=== PATIENT | male | born 1975 | race Hispanic/Latino ===

== ENCOUNTER 2019-03-01 04:36 | Inpatient (IN) | payer OTHER, SELFPAY ==
[2019-03-01 05:12] LABS: Absolute Lymphocytes (CBC) 1.9 K/uL (0.7-4.9); Basophils % 0.8 % (0-1.3); Hematocrit 41.5 % (39.6-49.0); Lymphocytes % 31.2 % (15.3-44.8); RBC Red Blood Cell Count 5.02 M/uL (4.33-5.43)
[2019-03-01 05:13] LABS: Protime INR 0.91
[2019-03-01] MEDS ORDERED: LABETALOL 20 MG/4ML SYRINGE IV ONE (05:41)
[2019-03-01 05:44] LABS: ALT/SGPT 36 U/L (12-78); AST/SGOT 32 U/L (15-37); Albumin 4.1 g/dL (3.4-5.0); Alkaline Phosphatase 199 U/L (45-117); BUN Blood Urea Nitrogen 19 mg/dL (7-18); Bicarbonate 27 mmol/L (21-32); Bilirubin Total 0.6 mg/dL (0.2-1.0); Glucose Level 164 mg/dL (74-106); Potassium 3.7 mmol/L (3.5-5.1); Protein, Total 8.3 g/dL (6.4-8.2); Sodium Level 142 mmol/L (136-145); Troponin (Emerg Dept Use Only) < 0.02 ng/mL (0.0-0.045)
[2019-03-01] MEDS ORDERED: cloNIDine HCL 0.1 MG TAB ONE (06:28)
[2019-03-01] MEDS ORDERED: Nicardipine/NS 25 MG/250 ML KIT IV ONE (06:49)
[2019-03-01] MEDS ORDERED: Nicardipine in Saline, Iso-Osm 20 MG/200 ML IV.SOLN. IV PRN (07:36)
--- NOTE | 2019-03-01 07:36 | ER ---
Nurse's Notes [facility] Name: Joselyn Lerner Jr Age: 44 yrs Sex: Male : 1975 Arrival Date: 03/01/2019 Time: 04:36 Bed 8 Private MD: Diagnosis: CVA;Hypertensive Emergency Presentation: 03/01 04:40 Presenting complaint: Patient states: he went to be about 2300 last night and woke up aa1 this morning at 0404 and when he stood up to use the restroom he noticed that he felt weak in his L arm and leg. C/O decreased sensation to L arm \T\ leg and slight droop to L side of mouth. Transition of care: patient was not received from another setting of care. An acute neurological deficit is present. The patient has been moved to a treatment area. Pre-hospital glucose is not applicable to this patient. Onset of symptoms is unknown. Risk Assessment: Do you want to hurt yourself or someone else? Patient reports no desire to harm self or others. Initial Sepsis Screen: Does the patient meet any 2 criteria? No. Patient's initial sepsis screen is negative. Does the patient have a suspected source of infection? No. Patient's initial sepsis screen is negative. Care prior to arrival: None. 04:40 Method Of Arrival: Ambulatory aa1 04:40 Acuity: DANIELLE 2 aa1 Triage Assessment: 04:40 The onset of the patients symptoms was more than three but less than six hours ago. aa1 07:24 Neuro: Reports. tw2 09:54 The onset of the patients symptoms was March 01, 2019 at 04:40. tw2 Stroke Activation: Symtpom onset >3 hours and < 6 hours Physician: Stroke Attending; Name: n/a; Notified At: ; Arrived At: Physician: Chief Stroke Resident; Name: n/a; Notified At: ; Arrived At: Physician: Stroke Resident; Name: n/a; Notified At: ; Arrived At: Physician: ED Attending; Name: ; Notified At: 04:38; Arrived At: 04:38 Physician: ED Resident; Name: n/a; Notified At: ; Arrived At: Historical: - Allergies: 04:53 Tylenol; aa1 07:24 Hydrocodone-Acetaminophen; tw2 - Home Meds: 04:53 clonidine HCl 0.1 mg Oral tab 1 tab once daily [Active]; losartan oral oral [Active]; aa1 07:24 lisinopril 40 mg Oral tab 1 tab once daily [Active]; tw2 - PMHx: 04:53 Gout; Hypertension; aa1 - PSHx: 04:53 Appendectomy; Cholecystectomy; aa1 - Immunization history:: Flu vaccine is not up to date. - Social history:: Smoking status: Patient uses tobacco products, denies chronic smoking, but will smoke occasionally, Patient/guardian denies using alcohol, street drugs, IV drugs. - Ebola Screening: : No symptoms or risks identified at this time. Screenin:40 Abuse screen: Denies threats or abuse. Denies injuries from another. Nutritional aa1 screening: No deficits noted. Tuberculosis screening: No symptoms or risk factors identified. Fall Risk None identified. 05:35 Patient has been NPO before screening. The patient is alert, able to follow commands. aa1 The patient does not exhibit slurred or garbled speech The patient is not exhibiting difficulty speaking. The patient does not exhibit difficulty understanding words. The patient is able to swallow own secretions with no drooling or need for suction. Patient tolerated one teaspoon of water. No drooling, immediate coughing, gurgling, or clearing of the throat was noted. The patient tolerated 90mL of water. No drooling, immediate coughing, gurgling, or clearing of the throat was noted. The patient passed the bedside swallow screening. Oral medications may be given as ordered. Contact Physician for further diet orders. Assessment: 04:40 VAN Scoring: Arm Drift: Minor drift Visual Disturbance: No visual disturbance noted. aa1 Aphasia: No aphasia noted. Neglect: No neglect noted. T-PA (Activase) Screening: Indications: Definite evidence of stroke, ischemic, embolic, or hypertensive: Yes. Treatment will start within 4.5 hours onset of symptoms: No. 04:40 General: Appears in no apparent distress. comfortable, Behavior is calm, cooperative, aa1 appropriate for age. Pain: Denies pain. Neuro: Level of Consciousness is awake, alert, obeys commands, Oriented to person, place, time, situation, Printer Helper are weak on left Moves all extremities. Weakness in left arm(s) leg(s) Speech is normal, Facial droop on left, Pupils are PERRLA, decreases in LUE \T\ LLE. Denies blurred vision dizziness, difficulty swallowing. Cardiovascular: Heart tones S1 S2 present Rhythm is regular. Respiratory: Airway is patent Respiratory effort is even, unlabored, Respiratory pattern is regular, symmetrical. GI: No signs and/or symptoms were reported involving the gastrointestinal system. : No signs and/or symptoms were reported regarding the genitourinary system. EENT: No signs and/or symptoms were reported regarding the EENT system. Derm: Skin is intact, is healthy with good turgor, Skin is pink, warm \T\ dry. Musculoskeletal: Circulation, motion, and sensation intact. Capillary refill < 3 seconds. 05:40 Reassessment: Patient appears in no apparent distress at this time. No changes from aa1 previously documented assessment. Patient and/or family updated on plan of care and expected duration. Pain level reassessed. Awaiting test results Patient denies pain at this time. 06:15 Reassessment: Patient appears in no apparent distress at this time. No changes from aa1 previously documented assessment. Patient and/or family updated on plan of care and expected duration. Pain level reassessed. Patient is alert, oriented x 3, equal unlabored respirations, skin warm/dry/pink. BP remains elevated, ERP aware. Will give PO Clonidine. 07:13 Reassessment: per Dr. Rascon titrate Cardene to maintain MAP at 135. tw2 07:22 Patient has been NPO before screening. The patient is alert, and able to follow tw2 commands. The patient does not exhibit slurred or garbled speech. The patient is not exhibiting difficulty speaking. The patient does not exhibit difficulty understanding words. The patient is able to swallow own secretions with no drooling or need for suction. Patient tolerated one teaspoon of water. No drooling, immediate coughing, gurgling, or clearing of the throat was noted. The patient tolerated 90mL of water. No drooling, immediate coughing, gurgling, or clearing of the throat was noted. The patient passed the bedside swallow screening. Oral medications may be given as ordered. Contact Physician for further diet orders. Provider notified of bedside swallow screening results: Mando Evans MD. 07:25 Reassessment: Patient appears in no apparent distress at this time. No changes from tw2 previously documented assessment. Patient and/or family updated on plan of care and expected duration. Pain level reassessed. Patient is alert, oriented x 3, equal unlabored respirations, skin warm/dry/pink. pt able to sit at bedside and use urinal at this time, nad. 07:48 Reassessment: Patient appears in no apparent distress at this time. Dr Rascon at bedside, ph pt's MAP noted to be 115, Cardene drip rate decreased, (see MAR), verbal order received for 250 mL NS bolus to maintain MAP of 135. 08:25 Reassessment: per Dr. Rascon stop Cardene at this time, if needed and MAP >150 start tw2 Cardene at 0.5mg/hr and titrate to MAP about [address] Rascon, Dr. Solorzano taking over for Dr. Rascon after this. 08:25 Reassessment: Patient appears in no apparent distress at this time. No changes from tw2 previously documented assessment. Patient and/or family updated on plan of care and expected duration. Pain level reassessed. Patient is alert, oriented x 3, equal unlabored respirations, skin warm/dry/pink. 09:20 Reassessment: Patient appears in no apparent distress at this time. No changes from tw2 previously documented assessment. Patient and/or family updated on plan of care and expected duration. Pain level reassessed. Patient is alert, oriented x 3, equal unlabored respirations, skin warm/dry/pink. Vital Signs: 04:55 BP 222 / 133; Pulse 84; Resp 16; Temp 97.5; Pulse Ox 100% on R/A; Weight 107.95 kg; aa1 Height 5 ft. 8 in. (172.72 cm); Pain 0/10; 05:30 BP 203 / 125; Pulse 68; Resp 18; Pulse Ox 99% on R/A; Pain 0/10; aa1 06:21 BP 229 / 130; Pulse 68; Resp 17; Pulse Ox 98% on R/A; oe 06:53 BP 220 / 113; Pulse 64; Resp 16; Pulse Ox 100% on R/A; Pain 0/10; aa1 07:06 BP 201 / 119; Pulse 82; Resp 17; Pulse Ox 99% on R/A; tw2 07:10 BP 192 / 115; Pulse 82; Resp 17; Pulse Ox 100% on R/A; tw2 07:15 BP 194 / 126; Pulse 92; Resp 17; Pulse Ox 99% on R/A; tw2 07:20 BP 194 / 126; Pulse 87; Resp 16; Pulse Ox 100% on R/A; tw2 07:25 BP 185 / 105; Pulse 85; Resp 17; Pulse Ox 98% on R/A; tw2 07:30 BP 167 / 104; Pulse 84; Resp 17; Pulse Ox 98% on R/A; tw2 07:35 BP 166 / 107; Pulse 81; Resp 17; Pulse Ox 99% on R/A; tw2 07:40 BP 162 / 99; Pulse 81; Resp 17; Pulse Ox 98% on R/A; tw2 07:45 BP 151 / 103; Pulse 83; Resp 16; Pulse Ox 98% on R/A; tw2 07:50 BP 155 / 92; Pulse 79; Resp 17; Pulse Ox 98% on R/A; tw2 07:55 BP 156 / 94; Pulse 79; Resp 14; Pulse Ox 98% on R/A; tw2 08:00 BP 151 / 93; Pulse 80; Resp 17; Pulse Ox 98% on R/A; tw2 08:05 BP 153 / 98; Pulse 81; Resp 17; Pulse Ox 99% on R/A; tw2 08:10 BP 167 / 101; Pulse 79; Resp 17; Pulse Ox 98% on R/A; tw2 08:15 BP 161 / 94; Pulse 81; Resp 15; Pulse Ox 97% on R/A; tw2 08:20 BP 147 / 92; Pulse 80; Resp 15; Pulse Ox 97% on R/A; tw2 08:25 BP 174 / 106; Pulse 80; Resp 17; Pulse Ox 99% on R/A; tw2 08:35 BP 182 / 116; Pulse 82; Resp 17; Pulse Ox 98% on R/A; tw2 08:40 BP 181 / 123; Pulse 79; Resp 17; Pulse Ox 99% on R/A; tw2 08:45 BP 169 / 106; Pulse 79; Resp 17; Pulse Ox 100% on R/A; tw2 08:50 BP 168 / 109; Pulse 75; Resp 17; Pulse Ox 99% on R/A; tw2 08:55 BP 171 / 109; Pulse 74; Resp 15; Pulse Ox 98% on R/A; tw2 09:00 BP 159 / 103; Pulse 76; Resp 13; Pulse Ox 98% on R/A; tw2 09:15 BP 159 / 104; Pulse 71; Resp 17; Pulse Ox 99% on R/A; tw2 09:30 BP 167 / 107; Pulse 70; Resp 17; Pulse Ox 100% ; tw2 09:45 BP 165 / 103; Pulse 72; Resp 17; Pulse Ox 99% on R/A; tw2 04:55 Body Mass Index 36.19 (107.95 kg, 172.72 cm) aa1 08:35 map 133 tw2 08:40 map 138 tw2 08:45 map 122 tw2 08:50 [id number] tw2 08:55 map 126 tw2 09:00 [id number] tw2 09:15 map 120 tw2 09:45 map 121 tw2 NIH Stroke Scale Scores: 04:40 NIHSS Score: 4 aa1 04:53 NIHSS Score: 4 ps1 ED Course: 04:36 Patient arrived in ED. ds1 04:39 Arm band placed on left wrist. Patient placed in an exam room, on a stretcher. aa1 04:40 Patient has correct armband on for positive identification. Placed in gown. Bed in low aa1 position. Call light in reach. senior civil engineer on. Pulse ox on. NIBP on. Warm blanket given. 04:41 Initial lab(s) drawn, by ED staff, sent to lab. Inserted saline lock: 18 gauge in right aa1 antecubital area, using aseptic technique. ,using aseptic technique. by Lupis Dewitt RN Blood collected. 04:45 Mando Evans MD is Attending Physician. ps1 04:45 Iqra Ibarra RN is Primary Nurse. aa1 04:51 Triage completed. aa1 05:27 CT Stroke Brain w/o Contrast In Process Unspecified. EDMS 05:27 Stroke CXR 1 View In Process Unspecified. EDMS 05:29 Head angio In Process Unspecified. EDMS 05:29 Neck Angio In Process Unspecified. EDMS 07:00 Report given to Aleyda Richey RN \T\ Arleen Mejia RN. aa1 07:08 Ebenezer Phillips MD is Hospitalizing Provider. ps1 07:19 Richey, Aleyda, RN is Primary Nurse. tw2 07:39 No provider procedures requiring assistance completed. tw2 09:54 Patient admitted, IV remains in place. tw2 Administered Medications: 05:40 Drug: Labetalol 10 mg Route: IVP; Site: right antecubital; aa1 06:10 Follow up: Response: No adverse reaction; Blood pressure is unchanged aa1 06:15 Drug: Labetalol 10 mg Route: IVP; Site: right forearm; wh 06:30 Follow up: Response: No adverse reaction; Blood pressure is unchanged aa1 06:27 Drug: cloNIDine 0.1 mg Route: PO; aa1 07:38 Follow up: Response: No adverse reaction tw2 06:52 Drug: niCARdipine (25mg/250mL) 5 mg/h Route: IV; Rate: calculated rate; Site: right aa1 antecubital; 07:13 Follow up: Rate change 10 ml/hr tw2 07:38 Follow up: Rate change 7 ml/hr tw2 07:53 Follow up: Rate change 2 mg/hr tw2 08:10 Follow up: Rate change 1 mg/hr tw2 08:25 Follow up: IV Status: Order to discontinue infusion; Order to discontinue infusion, per tw2 Dr. Rascon if MAP > 150 start Cardene at 0.5 mg/hr and titrate MAP around 140 after that 06:58 Drug: Aspirin 325 mg Route: PO; aa1 07:38 Follow up: Response: No adverse reaction tw2 07:53 Drug: NS 0.9% 250 ml Route: IV; Rate: bolus; Site: right antecubital; tw2 08:09 Follow up: Rate change 70 ml/hr; IV Intake: 250ml ; per Dr. Rascon tw2 09:54 Follow up: Rate change 75 ml/hr; IV Status: Infusion continued upon admission tw2 Point of Care Testing: Blood Glucose: 04:45 Blood Glucose: 174 mg/dL; aa1 Ranges: Intake: 08:09 IV: 250ml; Total: 250ml. tw2 Output: 07:39 Urine: 400ml (Voided); Total: 400ml. tw2 Outcome: 07:08 Decision to Hospitalize by Provider. ps1 09:54 Admitted to ER Hold. Please see [facility] for further documentation. tw2 09:54 Condition: stable 09:54 Instructed on the need for admit. 16:41 Admitted to ICU accompanied by nurse, accompanied by tech, via stretcher, room 6, on tw2 monitor, with chart, Report called to CRISTELA Falcon 16:41 Patient left the ED. tw2 NIH Stroke Scale - NIH Stroke Score Date: 03/01/2019 Time: 04:40 Total Score = 4 1a. Level of Consciousness (LOC) - 0(Alert) 1b. Level of Consciousness (LOC) (Year \T\ Age) - 0(Both) 1c. LOC Commands (Open \T\ Closes Eyes/Coordinator Volunteer Services) - 0(Both) 2. Best Gaze (Lateral Gaze Paresis) - 0(Normal) 3. Visual Field Loss - 0(No visual loss) 4. Facial Palsy - 1(Minor Paralysis) 5a. Left Arm: Motor (10-second hold) - 1(Drift) 5b. Right Arm: Motor (10-second hold) - 0(No drift) 6a. Left Leg: Motor (5-second hold - always test supine) - 1(Drift) 6b. Right Leg: Motor (5-second hold - always test supine) - 0(No drift) 7. Limb Ataxia (finger/nose \T\ heel/tomlinson - test with eyes open) - 0(Absent) 8. Sensory Loss (pinprick arms/legs/face) - 1(Mild to moderate loss) 9. Best Language: Aphasia (description/naming/reading) - 0(No aphasia) 10. Dysarthria (speech clarity - read or repeat words) - 0(Normal) 11. Extinction and Inattention (visual/tactile/auditory/spatial/personal) - 0(No abnormality) Initials: aa1 NIH Stroke Scale - NIH Stroke Score Date: 03/01/2019 Time: 04:53 Total Score = 4 1a. Level of Consciousness (LOC) - 0(Alert) 1b. Level of Consciousness (LOC) (Year \T\ Age) - 0(Both) 1c. LOC Commands (Open \T\ Closes Eyes/Coordinator Volunteer Services) - 0(Both) 2. Best Gaze (Lateral Gaze Paresis) - 0(Normal) 3. Visual Field Loss - 0(No visual loss) 4. Facial Palsy - 1(Minor Paralysis) 5a. Left Arm: Motor (10-second hold) - 1(Drift) 5b. Right Arm: Motor (10-second hold) - 0(No drift) 6a. Left Leg: Motor (5-second hold - always test supine) - 1(Drift) 6b. Right Leg: Motor (5-second hold - always test supine) - 0(No drift) 7. Limb Ataxia (finger/nose \T\ heel/tomlinson - test with eyes open) - 0(Absent) 8. Sensory Loss (pinprick arms/legs/face) - 1(Mild to moderate loss) 9. Best Language: Aphasia (description/naming/reading) - 0(No aphasia) 10. Dysarthria (speech clarity - read or repeat words) - 0(Normal) 11. Extinction and Inattention (visual/tactile/auditory/spatial/personal) - 0(No abnormality) Initials: ps1 Signatures: Dispatcher [employer] EDMS Iqra Ibarra RN RN aa1 Bertha Whitfield ds1 Arleen Mejia RN RN Aleyda Richey RN RN tw2 [place] wh Singer, Phillip, MD MD ps1 Corrections: (The following items were deleted from the chart) 08:52 08:30 BP 182 / 116; Pulse 82bpm; Resp 17bpm; Pulse Ox 98% RA; tw2 tw2 08:52 08:35 BP 169 / 106; Pulse 79bpm; Resp 17bpm; Pulse Ox 100% RA; tw2 tw2 08:52 08:35 BP 181 / 123; Pulse 79bpm; Resp 17bpm; Pulse Ox 99% RA; tw2 tw2 08:59 08:40 BP 181 / 123; Pulse 79bpm; Resp 17bpm; Pulse Ox 99% RA; tw2 tw2 08:59 08:35 BP 182 / 116; Pulse 82bpm; Resp 17bpm; Pulse Ox 98% RA; tw2 tw2 08:59 08:45 BP 169 / 106; Pulse 79bpm; Resp 17bpm; Pulse Ox 100% RA; tw2 tw2 08:59 08:50 BP 168 / 109; Pulse 75bpm; Resp 17bpm; Pulse Ox 99% RA; tw2 tw2
--- NOTE | 2019-03-01 07:37 | EDPHYS ---
Physician Documentation [facility] Name: Joselyn Lerner Jr Age: 44 yrs Sex: Male : 1975 Arrival Date: 03/01/2019 Time: 04:36 Bed 8 Private MD: ED Physician Mando Evans HPI: 03/01 04:53 This 44 yrs old Male presents to ER via Ambulatory with complaints of S/S of ps1 Possible Stroke, Numbness Of Arm - L, Slurred Speech. 04:53 No hx of CVA in past presenting with slurred speech, left UE/LE and left facial ps1 weakness and decreased sensation. Went to bed at 11 pm normal and woke up at 4am with symptoms. No blood thinners. Hx of HTN. . Historical: - Allergies: 04:53 Tylenol; aa1 07:24 Hydrocodone-Acetaminophen; tw2 - Home Meds: 04:53 clonidine HCl 0.1 mg Oral tab 1 tab once daily [Active]; losartan oral oral [Active]; aa1 07:24 lisinopril 40 mg Oral tab 1 tab once daily [Active]; tw2 - PMHx: 04:53 Gout; Hypertension; aa1 - PSHx: 04:53 Appendectomy; Cholecystectomy; aa1 - Immunization history:: Flu vaccine is not up to date. - Social history:: Smoking status: Patient uses tobacco products, denies chronic smoking, but will smoke occasionally, Patient/guardian denies using alcohol, street drugs, IV drugs. - Ebola Screening: : No symptoms or risks identified at this time. ROS: 04:53 Constitutional: Negative for fever, chills, and weight loss, Eyes: Negative for injury, ps1 pain, redness, and discharge, Cardiovascular: Negative for chest pain, palpitations, and edema, Respiratory: Negative for shortness of breath, cough, wheezing, and pleuritic chest pain, Abdomen/GI: Negative for abdominal pain, nausea, vomiting, diarrhea, and constipation, MS/Extremity: Negative for injury and deformity, Skin: Negative for injury, rash, and discoloration. 04:53 Neuro: Positive for weakness, of the left cheek, left arm and left leg. Exam: 04:53 Constitutional: This is a well developed, well nourished patient who is awake, alert, ps1 and in no acute distress. Head/Face: Normocephalic, atraumatic. Eyes: Pupils equal round and reactive to light, extra-ocular motions intact. Lids and lashes normal. Conjunctiva and sclera are non-icteric and not injected. ENT: Nares patent. No nasal discharge, no septal abnormalities noted. Tympanic membranes are normal and external auditory canals are clear. Oropharynx with no redness, swelling, or masses, exudates, or evidence of obstruction, uvula midline. Mucous membranes moist. Chest/axilla: Normal chest wall appearance and motion. Nontender with no deformity. No lesions are appreciated. Cardiovascular: Regular rate and rhythm. No gallops, murmurs, or rubs. Normal PMI, no JVD. No pulse deficits. Respiratory: Lungs have equal breath sounds bilaterally, clear to auscultation and percussion. No rales, rhonchi or wheezes noted. No increased work of breathing, no retractions or nasal flaring. Abdomen/GI: Soft, non-tender, with normal bowel sounds. No distension or tympany. No guarding or rebound. No evidence of tenderness throughout. Skin: Warm, dry with normal turgor. Normal color with no rashes, no lesions, and no evidence of cellulitis. MS/ Extremity: Pulses equal, no cyanosis. Neurovascular intact. Full, normal range of motion. 04:53 Neuro: Orientation: is normal, Mentation: is normal, Cerebellar function: is grossly normal, Motor: Strength is 3/5 in the left leg and left arm. 07:08 Radiologist reports: negative for flow limiting lesion on CTA, CT ps1 Vital Signs: 04:55 BP 222 / 133; Pulse 84; Resp 16; Temp 97.5; Pulse Ox 100% on R/A; Weight 107.95 kg; aa1 Height 5 ft. 8 in. (172.72 cm); Pain 0/10; 05:30 BP 203 / 125; Pulse 68; Resp 18; Pulse Ox 99% on R/A; Pain 0/10; aa1 06:21 BP 229 / 130; Pulse 68; Resp 17; Pulse Ox 98% on R/A; oe 06:53 BP 220 / 113; Pulse 64; Resp 16; Pulse Ox 100% on R/A; Pain 0/10; aa1 07:06 BP 201 / 119; Pulse 82; Resp 17; Pulse Ox 99% on R/A; tw2 07:10 BP 192 / 115; Pulse 82; Resp 17; Pulse Ox 100% on R/A; tw2 07:15 BP 194 / 126; Pulse 92; Resp 17; Pulse Ox 99% on R/A; tw2 07:20 BP 194 / 126; Pulse 87; Resp 16; Pulse Ox 100% on R/A; tw2 07:25 BP 185 / 105; Pulse 85; Resp 17; Pulse Ox 98% on R/A; tw2 07:30 BP 167 / 104; Pulse 84; Resp 17; Pulse Ox 98% on R/A; tw2 07:35 BP 166 / 107; Pulse 81; Resp 17; Pulse Ox 99% on R/A; tw2 07:40 BP 162 / 99; Pulse 81; Resp 17; Pulse Ox 98% on R/A; tw2 07:45 BP 151 / 103; Pulse 83; Resp 16; Pulse Ox 98% on R/A; tw2 07:50 BP 155 / 92; Pulse 79; Resp 17; Pulse Ox 98% on R/A; tw2 07:55 BP 156 / 94; Pulse 79; Resp 14; Pulse Ox 98% on R/A; tw2 08:00 BP 151 / 93; Pulse 80; Resp 17; Pulse Ox 98% on R/A; tw2 08:05 BP 153 / 98; Pulse 81; Resp 17; Pulse Ox 99% on R/A; tw2 08:10 BP 167 / 101; Pulse 79; Resp 17; Pulse Ox 98% on R/A; tw2 08:15 BP 161 / 94; Pulse 81; Resp 15; Pulse Ox 97% on R/A; tw2 08:20 BP 147 / 92; Pulse 80; Resp 15; Pulse Ox 97% on R/A; tw2 08:25 BP 174 / 106; Pulse 80; Resp 17; Pulse Ox 99% on R/A; tw2 08:35 BP 182 / 116; Pulse 82; Resp 17; Pulse Ox 98% on R/A; tw2 08:40 BP 181 / 123; Pulse 79; Resp 17; Pulse Ox 99% on R/A; tw2 08:45 BP 169 / 106; Pulse 79; Resp 17; Pulse Ox 100% on R/A; tw2 08:50 BP 168 / 109; Pulse 75; Resp 17; Pulse Ox 99% on R/A; tw2 08:55 BP 171 / 109; Pulse 74; Resp 15; Pulse Ox 98% on R/A; tw2 09:00 BP 159 / 103; Pulse 76; Resp 13; Pulse Ox 98% on R/A; tw2 09:15 BP 159 / 104; Pulse 71; Resp 17; Pulse Ox 99% on R/A; tw2 09:30 BP 167 / 107; Pulse 70; Resp 17; Pulse Ox 100% ; tw2 09:45 BP 165 / 103; Pulse 72; Resp 17; Pulse Ox 99% on R/A; tw2 04:55 Body Mass Index 36.19 (107.95 kg, 172.72 cm) aa1 08:35 map 133 tw2 08:40 map 138 tw2 08:45 map 122 tw2 08:50 [id number] tw2 08:55 map 126 tw2 09:00 [id number] tw2 09:15 map 120 tw2 09:45 map 121 tw2 NIH Stroke Scale Scores: 04:40 NIHSS Score: 4 aa1 04:53 NIHSS Score: 4 ps1 MDM: 04:53 Patient medically screened. ps1 05:56 ED course: CT stroke negative. CTA negative for flow limiting lesion in brain. Pending ps1 neck. . 07:08 Data reviewed: vital signs, nurses notes, lab test result(s), radiologic studies, and ps1 as a result, I will discharge patient. Counseling: I had a detailed discussion with the patient and/or guardian regarding: the historical points, exam findings, and any diagnostic results supporting the discharge/admit diagnosis, the presence of at least one elevated blood pressure reading (>120/80) during this emergency department visit, the need for further work-up and treatment in the hospital. 03/01 04:47 Order name: Troponin (emerg Dept Use Only); Complete Time: 05:49 ps1 03/01 04:47 Order name: CBC with Diff; Complete Time: 05:36 ps1 03/01 04:42 Order name: CT Stroke Brain w/o Contrast dm5 03/01 04:47 Order name: Protime (+inr); Complete Time: 05:18 ps1 03/01 04:47 Order name: CMP; Complete Time: 05:49 ps1 03/01 04:58 Order name: Glucose, Ancillary Testing; Complete Time: 05:05 EDMS 01/05 04:47 Order name: Stroke CXR 1 View ps1 03/01 05:03 Order name: Head angio EDMS 03/01 05:03 Order name: Neck Angio EDMS 03/01 07:41 Order name: Echo with Doppler EDMS 03/01 07:42 Order name: Stroke Protocol EDMS 03/01 07:44 Order name: Chest Pa And Lat (2 Views) EDMS 03/01 04:47 Order name: EKG; Complete Time: 04:48 ps1 03/01 04:47 Order name: Accucheck; Complete Time: 05:00 ps1 03/01 04:47 Order name: Cardiac monitoring; Complete Time: 05:00 ps1 03/01 04:47 Order name: EKG - Nurse/Tech; Complete Time: 05:00 ps1 03/01 04:47 Order name: IV Saline Lock; Complete Time: 05:00 ps1 03/01 07:40 Order name: CONS Physician Consult EDMS 03/01 07:40 Order name: Physical Therapy Consult EDMS 03/01 07:41 Order name: Speech Therapy Consult EDMS 03/01 07:41 Order name: NPO EDMS 03/01 07:41 Order name: NPO EDMS 03/01 07:41 Order name: NPO EDMS 03/01 07:41 Order name: EKG Electrocardiogram EDMS 03/01 04:47 Order name: Labs collected and sent; Complete Time: 05:00 ps1 03/01 04:47 Order name: NPO; Complete Time: 05:00 ps1 03/01 04:47 Order name: O2 Per Protocol; Complete Time: 05:00 ps1 03/01 04:47 Order name: O2 Sat Monitoring; Complete Time: 05:00 ps1 03/01 04:47 Order name: Stroke Swallow Screen; Complete Time: 05:44 ps1 EC:06 Rate is 77 beats/min. Rhythm is regular. QRS [place] is Normal. CA interval is normal. QRS ps1 interval is normal. QT interval is normal. No Q waves. T waves are Normal. No ST changes noted. Clinical impression: Normal ECG. Reviewed by me. Administered Medications: 05:40 Drug: Labetalol 10 mg Route: IVP; Site: right antecubital; aa1 06:10 Follow up: Response: No adverse reaction; Blood pressure is unchanged aa1 06:15 Drug: Labetalol 10 mg Route: IVP; Site: right forearm; 06:30 Follow up: Response: No adverse reaction; Blood pressure is unchanged aa1 06:27 Drug: cloNIDine 0.1 mg Route: PO; aa1 07:38 Follow up: Response: No adverse reaction tw2 06:52 Drug: niCARdipine (25mg/250mL) 5 mg/h Route: IV; Rate: calculated rate; Site: right aa1 antecubital; 07:13 Follow up: Rate change 10 ml/hr tw2 07:38 Follow up: Rate change 7 ml/hr tw2 07:53 Follow up: Rate change 2 mg/hr tw2 08:10 Follow up: Rate change 1 mg/hr tw2 08:25 Follow up: IV Status: Order to discontinue infusion; Order to discontinue infusion, per tw2 Dr. Rascon if MAP > 150 start Cardene at 0.5 mg/hr and titrate MAP around 140 after that 06:58 Drug: Aspirin 325 mg Route: PO; aa1 07:38 Follow up: Response: No adverse reaction tw2 07:53 Drug: NS 0.9% 250 ml Route: IV; Rate: bolus; Site: right antecubital; tw2 08:09 Follow up: Rate change 70 ml/hr; IV Intake: 250ml ; per Dr. Rascon tw2 09:54 Follow up: Rate change 75 ml/hr; IV Status: Infusion continued upon admission tw2 Point of Care Testing: Blood Glucose: 04:45 Blood Glucose: 174 mg/dL; aa1 Ranges: Critical Glucose Levels:Adult <50 mg/dl or >400 mg/dl <40 mg/dl or >180 mg/dl Disposition: 03/01/19 07:08 Hospitalization ordered by Eebnezer Phillips for Inpatient Admission. Preliminary diagnosis are CVA, Hypertensive Emergency. - Bed requested for Intensive Care Unit. - Status is Inpatient Admission. tw2 - Condition is Serious. - Problem is new. - Symptoms are unchanged. UTI on Admission? No Critical care time excluding procedures: 07:08 Critical care time: Bedside Care: 30 minutes, Consultation: 10 minutes. Total time: 40 ps1 minutes NIH Stroke Scale - NIH Stroke Score Date: 03/01/2019 Time: 04:40 Total Score = 4 1a. Level of Consciousness (LOC) - 0(Alert) 1b. Level of Consciousness (LOC) (Year \T\ Age) - 0(Both) 1c. LOC Commands (Open \T\ Closes Eyes/Ophthalmology Surgical Technician) - 0(Both) 2. Best Gaze (Lateral Gaze Paresis) - 0(Normal) 3. Visual Field Loss - 0(No visual loss) 4. Facial Palsy - 1(Minor Paralysis) 5a. Left Arm: Motor (10-second hold) - 1(Drift) 5b. Right Arm: Motor (10-second hold) - 0(No drift) 6a. Left Leg: Motor (5-second hold - always test supine) - 1(Drift) 6b. Right Leg: Motor (5-second hold - always test supine) - 0(No drift) 7. Limb Ataxia (finger/nose \T\ heel/tomlinson - test with eyes open) - 0(Absent) 8. Sensory Loss (pinprick arms/legs/face) - 1(Mild to moderate loss) 9. Best Language: Aphasia (description/naming/reading) - 0(No aphasia) 10. Dysarthria (speech clarity - read or repeat words) - 0(Normal) 11. Extinction and Inattention (visual/tactile/auditory/spatial/personal) - 0(No abnormality) Initials: aa1 NIH Stroke Scale - NIH Stroke Score Date: 03/01/2019 Time: 04:53 Total Score = 4 1a. Level of Consciousness (LOC) - 0(Alert) 1b. Level of Consciousness (LOC) (Year \T\ Age) - 0(Both) 1c. LOC Commands (Open \T\ Closes Eyes/Ophthalmology Surgical Technician) - 0(Both) 2. Best Gaze (Lateral Gaze Paresis) - 0(Normal) 3. Visual Field Loss - 0(No visual loss) 4. Facial Palsy - 1(Minor Paralysis) 5a. Left Arm: Motor (10-second hold) - 1(Drift) 5b. Right Arm: Motor (10-second hold) - 0(No drift) 6a. Left Leg: Motor (5-second hold - always test supine) - 1(Drift) 6b. Right Leg: Motor (5-second hold - always test supine) - 0(No drift) 7. Limb Ataxia (finger/nose \T\ heel/tomlinson - test with eyes open) - 0(Absent) 8. Sensory Loss (pinprick arms/legs/face) - 1(Mild to moderate loss) 9. Best Language: Aphasia (description/naming/reading) - 0(No aphasia) 10. Dysarthria (speech clarity - read or repeat words) - 0(Normal) 11. Extinction and Inattention (visual/tactile/auditory/spatial/personal) - 0(No abnormality) Initials: ps1 Signatures: Dispatcher [employer] EDTiffani Toussaint RN RN dw Iqra Ibarra RN RN aa1 Rosanne Hayes ms Aleyda Richey RN RN tw2 Cee Black Phillip, MD MD ps1 Corrections: (The following items were deleted from the chart) 08:10 07:08 Hospitalization Ordered by Ebenezer Phillips MD for Inpatient Admission. ms Preliminary diagnosis is CVA; Hypertensive Emergency. Bed requested for Intensive Care Unit. Status is Inpatient Admission. Condition is Serious. Problem is new. Symptoms are unchanged. UTI on Admission? No. ps1 08:17 08:10 03/01/2019 07:08 Hospitalization Ordered by Ebenezer Phillips MD for ms Inpatient Admission. Preliminary diagnosis is CVA; Hypertensive Emergency. Bed requested for [facility] ER HOLD. Status is Inpatient Admission. Condition is Serious. Problem is new. Symptoms are unchanged. UTI on Admission? No. ms 15:36 08:17 03/01/2019 07:08 Hospitalization Ordered by Ebenezer Phillips MD for dw Inpatient Admission. Preliminary diagnosis is CVA; Hypertensive Emergency. Bed requested for [facility] ER HOLD. Status is Inpatient Admission. Condition is Serious. Problem is new. Symptoms are unchanged. UTI on Admission? No. ms 16:41 15:36 03/01/2019 07:08 Hospitalization Ordered by Ebenezer Phillips MD for tw2 Inpatient Admission. Preliminary diagnosis is CVA; Hypertensive Emergency. Bed requested for Intensive Care Unit. Status is Inpatient Admission. Condition is Serious. Problem is new. Symptoms are unchanged. UTI on Admission? No. dw
[2019-03-01] MEDS: NA CHLORIDE 0.9% 1,000 ML IV SCH ×2 (08:00→21:20)
[2019-03-01] MEDS: ENOXAPARIN 40 MG/0.4 ML SQ SCH (09:00)
[2019-03-01] MEDS: ASPIRIN EC 81 MG TAB PO SCH (09:00)
[2019-03-01] MEDS: CLOPIDOGREL 75 MG TABLET PO SCH (09:00)
[2019-03-01] MEDS ORDERED: CLOPIDOGREL 75 MG TABLET ONE (10:59)
[2019-03-01] MEDS ORDERED: ENOXAPARIN 40 MG/0.4 ML SQ ONE (11:00)
[2019-03-01] MEDS ORDERED: ASPIRIN EC 81 MG TAB PO ONE (11:00)
--- NOTE | 2019-03-01 12:00 | RAD REPORT ---
EXAM DESCRIPTION: RAD - Chest Single View - 03/01/2019 5:24 am CLINICAL HISTORY: stroke Chest pain. COMPARISON: Chest Single View dated 04/30/2017; CHEST SINGLE VIEW dated 11/10/2014 FINDINGS: Portable technique limits examination quality. The lungs are grossly clear. The heart is normal in size. No displaced fractures. IMPRESSION: No acute intrathoracic process suspected.
--- NOTE | 2019-03-01 12:47 | EKG ---
Test Date: 2019-03-01 Test Time: 04:47:23 Search Strategist: KARIN MEASUREMENT RESULTS: Intervals: Rate: 77 VA: 148 QRSD: 86 QT: 388 QTc: 439 [place]: P: 23 VA: 148 QRS: 23 T: 21 INTERPRETIVE STATEMENTS: Normal sinus rhythm Normal ECG Compared to ECG 04/30/2017 02:40:57 Sinus bradycardia no longer present Electronically Signed On 03-01-19 12:46:09 WINK CUTTER OPERATOR by Harpal George
[2019-03-01] MEDS ORDERED: HYDRALAZINE HCL 20 MG/ML VIAL ONE (15:11)
[2019-03-01] MEDS ORDERED: NA CHLORIDE 0.9% 1,000 ML ONE (15:12)
[2019-03-01] MEDS: HYDRALAZINE HCL 20 MG/ML VIAL IV PRN (15:17)
[2019-03-01] MEDS ORDERED: HYDRALAZINE HCL 20 MG/ML VIAL IV ONE (16:52)
[2019-03-01] MEDS ORDERED: ONDANSETRON 4 MG/2 ML VIAL ONE (17:28)
[2019-03-01] MEDS: HYDRALAZINE HCL 20 MG/ML VIAL IV SCH ×2 (18:00→23:43)
[2019-03-01] MEDS: ATORVASTATIN 20 MG TAB PO SCH (20:30)
[2019-03-02] MEDS ORDERED: MEPERIDINE HCL 25 MG/0.5 ML IV ONE (02:31)
--- NOTE | 2019-03-02 02:32 | P.HP ---
Certification for Inpatient Patient admitted to: Inpatient With expected LOS: >2 Midnights Patient will require the following post-hospital care: Rehabilitation Practitioner: I am a practitioner with admitting privileges, knowledge of patient current condition, hospital course, and medical plan of care. Services: Services provided to patient in accordance with Admission requirements found in Title 42 Section 412.3 of the Code of Federal Regulations Patient History Date of Service: 03/02/19 Reason for admission: Acute CVA/hypertensive emergency History of Present Illness: Patient is a 44-year-old gentleman who came into the hospital with left-sided weakness and aphasia. Patient went to sleep around 10:00 p.m.. He woke up around 4:00 a.m. unable to move his left side effectively. He was also aphasic. He woke up his sister who lives in the house with him and she called EMS. He was weak on the left side-lower and upper extremities. Patient also with a significant elevated blood pressure. He has not been taking his home blood pressure medication. He has been in the hospital since 13/02 and tends to have very high blood pressures with diastolic greater than 100's, routinely. Patient will be admitted to the intensive care unit for strict blood pressure control. Will start him on a Cardene drip. Patient will need neurology consultation and an MRI stroke protocol. Patient will need continued anti- platelet and statin therapy and we will check the lipid profile. Therapy evaluation as well. Allergies acetaminophen Allergy (Verified 04/30/17 05:17) Hives hydrocodone [Hydrocodone] Allergy (Verified 04/30/17 05:17) Hives Hydrocodone-Acetaminophen Allergy (Uncoded 04/30/17 05:17) Unknown Home Medications: Clonidine HCl [Catapres] 0.1 mg PO BEDTIME 03/01/19 Losartan Potassium 50 mg PO DAILY 03/01/19 - Past Medical/Surgical History Has patient received pneumonia vaccine in the past: No Diabetic: No -: Uncontrolled HTN -: Gout -: Appendectomy -: Cholecystectomy - Family History Father Medical History: Hypertension, Diabetes Mother Medical History: Heart disease, Diabetes Notes: pts mother is , pts father reports cod "complications from diabetes" Sister Medical History: Diabetes - Social History Smoking Status: Light Tobacco smoker (1-9 cigarettes/day) Alcohol use: No CD- Drugs: No Caffeine use: Yes Place of Residence: Home Review of Systems 10-point ROS is otherwise unremarkable Physical Examination - Vital Signs Temperature: 99.2 F Blood Pressure: 165/101 Pulse: 84 Respirations: 14 Pulse Ox (%): 100 - Physical Exam General: Alert, In no apparent distress, Oriented x3 HEENT: Atraumatic, PERRLA, Mucous membr. moist/pink, EOMI, Sclerae nonicteric Neck: Supple, 2+ carotid pulse no bruit, No LAD, Without JVD or thyroid abnormality Respiratory: Clear to auscultation bilaterally, Normal air movement Cardiovascular: Regular rate/rhythm, Normal S1 S2, No murmurs Gastrointestinal: Normal bowel sounds, Soft and benign, Non-distended, No tenderness Musculoskeletal: No clubbing, No swelling, No tenderness Integumentary: No rashes, No breakdown Neurological: Normal speech, Normal tone, Sensation intact, Cranial nerves 3-12 intact (Left-sided facial weakness), Normal affect, Abnormal gait (Ataxic), Abnormal strength (Left-sided weakness) Lymphatics: No axilla or inguinal lymphadenopathy - Studies Laboratory Data (last 24 hrs) 03/01/19 04:46: PT 10.8, INR 0.91 03/01/19 04:46: WBC 6.1, Hgb 14.3, Hct 41.5, Plt Count 234 03/01/19 04:46: Sodium 142, Potassium 3.7, BUN 19 H, Creatinine 1.79 H, Glucose 164 H, Total Bilirubin 0.6, AST 32, ALT 36, Alkaline Phosphatase 199 H Assessment & Plan - Problems (Diagnosis) (1) Hypertensive emergency Current Visit: Yes Status: Acute (2) Acute CVA (cerebrovascular accident) Current Visit: Yes Status: Acute (3) Acute renal insufficiency Onset Date: 04/30/17 Current Visit: No Status: Acute (4) Obesity Onset Date: 04/30/17 Current Visit: No Status: Chronic Qualifiers: Obesity type: due to excess calories Obesity classification: adult class 2 (BMI 35 - 39.9) Serious obesity comorbidity presence: with serious comorbidity Body mass index: BMI 36.0-36.9 Qualified Code(s): E66.01 - Morbid (severe) obesity due to excess calories; Z68.36 - Body mass index (BMI) 36.0-36.9, adult; Z68.36 - Body mass index (BMI) 36.0-36.9, adult - Plan Plan: 1. Anti-platelet therapy 2. Statin therapy 3. Strict blood pressure control 4. Anti coagulation 5. PT/OT/speech therapy 6. Rehab evaluation 7. Cardene drip and gentle lowering of blood pressure 8. GI/DVT prophylaxis Discharge Plan: Home Plan to discharge in: 72 Hours - Advance Directives Does patient have a Living Will: No Does patient have a Durable POA for Healthcare: No - Code Status/Comfort Care Code Status Assessed: Yes Code Status: Full Code Critical Care: Yes Time Spent Managing PTS Care (In Minutes): 55
[2019-03-02] MEDS: ONDANSETRON 4 MG/2 ML VIAL IV PRN ×2 (02:44→07:37)
[2019-03-02] MEDS: NA CHLORIDE 0.9% 1,000 ML IV SCH ×2 (03:44→19:52)
[2019-03-02 05:11] LABS: Absolute Lymphocytes (CBC) 1.2 K/uL (0.7-4.9); Basophils % 0.4 % (0-1.3); Hematocrit 38.7 % (39.6-49.0); Lymphocytes % 12.7 % (15.3-44.8); MPV 8.7 fL (7.6-11.3)
[2019-03-02 05:15] LABS: Protime INR 1.02
[2019-03-02 05:26] LABS: Albumin 3.7 g/dL (3.4-5.0); Magnesium 2.1 mg/dL (1.8-2.4); Phosphorus 2.6 mg/dL (2.5-4.9); Potassium 3.9 mmol/L (3.5-5.1); Protein, Total 7.6 g/dL (6.4-8.2)
[2019-03-02] MEDS: HYDRALAZINE HCL 20 MG/ML VIAL IV SCH ×3 (05:50→17:27)
[2019-03-02] MEDS: HYDRALAZINE HCL 20 MG/ML VIAL IV PRN ×2 (07:37→14:08)
[2019-03-02] MEDS: CLOPIDOGREL 75 MG TABLET PO SCH (08:03)
[2019-03-02] MEDS: ENOXAPARIN 40 MG/0.4 ML SQ SCH (08:03)
[2019-03-02] MEDS: ASPIRIN EC 81 MG TAB PO SCH (08:03)
--- NOTE | 2019-03-02 10:27 | RAD REPORT ---
EXAM DESCRIPTION: CT Angiography Neck With Intravenous Contrast CLINICAL HISTORY: The patient is 44 years old and is Male; SLURRED SPEECH TECHNIQUE: Axial computed tomographic angiography images of the neck with intravenous contrast. Sa gittal and coronal reformatted images were created and reviewed. This CT exam was performed using o ne or more of the following dose reduction techniques: automated exposure control, adjustment of th e mA and/or kV according to patient size, and/or use of iterative reconstruction technique. MIP reconstructed images were created and reviewed. COMPARISON: No relevant prior studies available. FINDINGS: VASCULATURE: RIGHT COMMON CAROTID ARTERY: Unremarkable. No significant stenosis. No dissection or occlusi on. RIGHT INTERNAL CAROTID ARTERY: Unremarkable. Extracranial segment is patent with no significan t stenosis. No dissection or occlusion. RIGHT EXTERNAL CAROTID ARTERY: Unremarkable. No occlusion. RIGHT VERTEBRAL ARTERY: Unremarkable. No significant stenosis. No dissection or occlusion. LEFT COMMON CAROTID ARTERY: Unremarkable. No significant stenosis. No dissection or occlusio n. LEFT INTERNAL CAROTID ARTERY: Unremarkable. Extracranial segment is patent with no significant stenosis. No dissection or occlusion. LEFT EXTERNAL CAROTID ARTERY: Unremarkable. No occlusion. LEFT VERTEBRAL ARTERY: Unremarkable. No significant stenosis. No dissection or occlusion. NECK: BONES/JOINTS: No acute fracture. No dislocation. SOFT TISSUES: Unremarkable as visualized. No mass. CAROTID STENOSIS REFERENCE USING NASCET CRITERIA: % ICA stenosis = (1 - narrowest ICA diameter/diameter of distal cervical ICA) x 100. Mild - Moderate - 50-69% stenosis. Severe - 70-94% stenosis. Near occlusion - 95-99% stenosis. Occluded - 100% stenosis. IMPRESSION: Normal neck CTA. Electronically signed by: Estee Wood MD 03/01/2019 6:03 AM FRAMING MACHINE TENDER Due to temporary technical issues with the PACS/Fluency reporting system, reports are being signed by the in house radiologist as a courtesy to ensure prompt reporting. The interpreting radiologist is f ully responsible for the content of the report.
--- NOTE | 2019-03-02 10:28 | RAD REPORT ---
EXAM DESCRIPTION: Head angio ADDENDUM #1 THIS REPORT CONTAINS FINDINGS THAT MAY BE CRITICAL TO PATIENT CARE: The findings were verbally discussed via telephone conference with Dr. Mando Evans by Dr. Sandy Wood on 6:[address] [facility] .The results were acknowledged and understood. Electronically signed by: Estee Wood MD 03/01/2019 6:00 AM HEALTHCARE ECONOMICS CONSULTANT End of Addendum EXAM DESCRIPTION: CT Angiography Head With Intravenous Contrast CLINICAL HISTORY: The patient is 44 years old and is Male; SLURRED SPEECH TECHNIQUE: Axial computed tomographic angiography images of the head with intravenous contrast. Sa gittal and coronal reformatted images were created and reviewed. This CT exam was performed using o ne or more of the following dose reduction techniques: automated exposure control, adjustment of th e mA and/or kV according to patient size, and/or use of iterative reconstruction technique. MIP reconstructed images were created and reviewed. COMPARISON: No relevant prior studies available. FINDINGS: RIGHT INTERNAL CAROTID ARTERY: No acute findings. Intracranial segment is patent with no significant stenosis. No aneurysm. RIGHT ANTERIOR CEREBRAL ARTERY: Unremarkable. No occlusion or significant stenosis. No aneur ysm. RIGHT MIDDLE CEREBRAL ARTERY: Unremarkable. No occlusion or significant stenosis. No aneurys m. 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 No significant stenosis or occlusion. No aneurysm. RIGHT VERTEBRAL ARTERY: Unremarkable as visualized. LEFT INTERNAL CAROTID ARTERY: No acute findings. Intracranial segment is patent with no signif icant stenosis. No aneurysm. LEFT ANTERIOR CEREBRAL ARTERY: Unremarkable. No occlusion or significant stenosis. No aneury sm. LEFT MIDDLE CEREBRAL ARTERY: Unremarkable. No occlusion or significant stenosis. No aneurysm . LEFT POSTERIOR CEREBRAL ARTERY: Unremarkable. No occlusion or significant stenosis. No aneur ysm. LEFT VERTEBRAL ARTERY: Unremarkable as visualized. BASILAR ARTERY: Unremarkable. No significant stenosis. No occlusion. No aneurysm. IMPRESSION: Unremarkable CTA of the head. Electronically signed by: Estee Wood MD 03/01/2019 5:56 AM HEALTHCARE ECONOMICS CONSULTANT Due to temporary technical issues with the PACS/Fluency reporting system, reports are being signed by the in house radiologist as a courtesy to ensure prompt reporting. The interpreting radiologist is f ully responsible for the content of the report.
--- NOTE | 2019-03-02 10:28 | ECHO ---
HEIGHT: 5 ft 8 in WEIGHT: 240 lb 3.2 oz DATE OF STUDY: 03/01/[address]: Ebenezer Phillips MD 2-DIMENSIONAL: YES M.MODE: YES DOPPLER: YES COLOR FLOW: YES TDS: NO PORTABLE: YES DEFINITY: NO BUBBLE STUDY: NO DIAGNOSIS: STROKE CARDIAC HISTORY: CATHERIZATION: NO SURGERY: NO PROSTHETIC VALVE: NO PACEMAKER: NO MEASUREMENTS (cm) DIASTOLIC (NORMALS) SYSTOLIC (NORMALS) IVSd 1.0 (0.6-1.2) LA Diam 3.3 (1.9-4.0) LVEF 72% LVIDd 4.5 (3.5-5.7) LVIDs 2.6 (2.0-3.5) %FS 41% LVPWd 1.0 (0.6-1.2) Ao Diam 3.0 (2.0-3.7) 2 DIMENSIONAL ASSESSMENT: RIGHT ATRIUM: NORMAL LEFT ATRIUM: NORMAL RIGHT VENTRICLE: NORMAL LEFT VENTRICLE: NORMAL TRICUSPID VALVE: NORMAL MITRAL VALVE: NORMAL PULMONIC VALVE: NORMAL AORTIC VALVE: NORMAL PERICARDIAL EFFUSION: NONE AORTIC ROOT: NORMAL LEFT VENTRICULAR WALL MOTION: NORMAL. DOPPLER/COLOR FLOW: NORMAL. COMMENTS: NORMAL 2D ECHO WITH DOPPLER. TECHNOLOGIST: BETZY TOSCANO
--- NOTE | 2019-03-02 10:30 | RAD REPORT ---
EXAM DESCRIPTION: Ct Stroke Brain Wo Cont ADDENDUM #1 THIS REPORT CONTAINS FINDINGS THAT MAY BE CRITICAL TO PATIENT CARE: The findings were verbally discussed via telephone conference with Dr. Mando Evans by Dr. Sandy Wood on 6:01 AM [facility] .The results were acknowledged and understood. Incidental note is made of either a mario cisterna magna versus right posterior fossa cyst. Electronically signed by: Estee Wood MD 03/01/2019 6:01 AM SUPERINTENDENT MENAGERIE End of Addendum EXAM DESCRIPTION: CT Head Without Intravenous Contrast CLINICAL HISTORY: The patient is 44 years old and is Male; Slurred speech;Numbness TECHNIQUE: Axial computed tomography images of the head/brain without intravenous contrast. Sagitt al and coronal reformatted images were created and reviewed. This CT exam was performed using one o r more of the following dose reduction techniques: automated exposure control, adjustment of the mA and/or kV according to patient size, and/or use of iterative reconstruction technique. COMPARISON: No relevant prior studies available. FINDINGS: BRAIN: Unremarkable. The ortiz-white matter differentiation is preserved . No hemorrhag e. No significant white matter disease. No edema. No extra-axial fluid collections. VENTRICLES: Unremarkable. No ventriculomegaly. BONES/JOINTS: No acute fracture. SOFT TISSUES: Unremarkable. SINUSES: Unremarkable as visualized. No acute sinusitis. MASTOID AIR CELLS: Unremarkable as visualized. No mastoid effusion. ORBITS: Unremarkable as visualized. IMPRESSION: No acute intracranial findings. Electronically signed by: Estee Wood MD 03/01/2019 5:53 AM SUPERINTENDENT MENAGERIE Due to temporary technical issues with the PACS/Fluency reporting system, reports are being signed by the in house radiologist as a courtesy to ensure prompt reporting. The interpreting radiologist is f ully responsible for the content of the report.
[2019-03-02] MEDS ORDERED: DIPHENHYDRAMINE 50 MG/ML VIAL IV PRN (12:13)
--- NOTE | 2019-03-02 12:16 | RAD REPORT ---
EXAM DESCRIPTION: MRI - Brain W/Wo Cont - 03/02/2019 11:51 am CLINICAL HISTORY: Acute CVA COMPARISON: March 01, [address] TECHNIQUE: Axial, sagittal, and coronal magnetic images of the brain were obtained. 20 cc MultiHance administered intravenously FINDINGS: An approximately 15 millimeter area of abnormal signal is present within the right basal g anglia/right internal capsule consistent with acute infarction. The ventricles are normal in caliber.. No abnormal enhancement within the brain is seen. An extra-axial fluid collection is not noted. Fluid within the sinuses/mastoids is not seen IMPRESSION: 15 millimeter acute infarction right basal ganglia/right internal capsule. Dr. Phillips was notified at approximately 12:03 p.m. March 02, 2019
--- NOTE | 2019-03-02 12:32 | RAD REPORT ---
EXAM DESCRIPTION: MRI - MRA Head Wo Cont - 03/02/2019 11:50 am CLINICAL HISTORY: Acute infarct COMPARISON: None. TECHNIQUE: Magnetic resonance angiogram was performed. 3D MIPS reconstruction performed FINDINGS: The anterior cerebral, middle cerebral, posterior cerebral, distal internal carotid and ba silar arteries do not demonstrate a significant stenosis. origin right posterior cerebral artery Questionable 2 millimeter aneurysm anterior communicating artery IMPRESSION: Questionable 2 millimeter aneurysm anterior communicating artery. Follow-up MRA in in 1 year recommended for re-evaluation
--- NOTE | 2019-03-02 12:36 | RAD REPORT ---
EXAM DESCRIPTION: MRI - MRA Neck W/Wo Cont - 03/02/2019 11:51 am CLINICAL HISTORY: Acute infarct COMPARISON: None. TECHNIQUE: Magnetic resonance angiogram of the neck was performed. 19 cc MultiHance was administered intravenously. 3D MIPS reconstruction performed FINDINGS: The common carotid, internal carotid and external carotid arteries do not demonstrate a si gnificant stenosis. An aneurysm is not seen. The vertebral arteries are codominant without visualization of an abnormality. IMPRESSION: Unremarkable MRA neck NASCET criteria used. Mild 0-49% stenosis Moderate 50-69% stenosis Severe 70-99% stenosis
[2019-03-02] MEDS ORDERED: PROMETHAZINE INJ 25 MG/ML AMP IV PRN (13:37)
[2019-03-02] MEDS: lisinopriL 5 MG TAB PO SCH ×2 (14:03→21:27)
[2019-03-02] MEDS: METOPROLOL TAR 50 MG TAB PO SCH ×2 (15:56→21:28)
[2019-03-02] MEDS: ATORVASTATIN 20 MG TAB PO SCH (19:28)
[2019-03-03] MEDS: HYDRALAZINE HCL 20 MG/ML VIAL IV SCH ×4 (00:05→17:05)
--- NOTE | 2019-03-03 00:15 | CON ---
Reason For Consultation: Consultation was called because of hypertensive emergency and acute stroke. History Of Present Illness: Mr. Lerner is a 44-year-old right-handed patient who was noncom pliant with treatment for his severe hypertension, was doing well until he woke up yesterday morning with significant left arm more than face and leg weakness. He went to bed the night before normally, but woke up at 4 a.m. with his symptoms. He was able to summon his sister who got the EMS alerted a nd the patient was brought to [facility]. He was of course with outside of a window for tis lopez plasminogen activator as he had gone to bed the night before and arrived in the emergency room at 4:36 in the morning the following day. He has had CT scan, was unremarkable for any acute ischemic or hemorrhagic change. His head CT angiogram was unremarkable. Neck CT angiogram also unremarkable. However, brain MRI done the 6th, today, following day showed a 15 mm acute infarct in the right bas al ganglia/right internal capsule junction. The MRA of the head also suggested a 2 mm aneurysm in th e anterior communicating artery. Echocardiogram was normal with ejection fraction of 72%. He was no t taking an aspirin daily and was placed on aspirin 160 mg along with Plavix 75 mg daily, also high-d ose statin that is Lipitor 40 mg at bedtime. Given DVT prophylaxis with Lovenox and his pressures we re kept permissive hypertension, but however, given numbers ranging with systolics in the 200s, diast olics over 108, it was with a target of less than 180 systolic. The patient is noted to have by evaluation he was beginning to recover significant strength on the le ft, but still was unable to hold his hand up off the bed. To be noted on admission, his NIH Stroke S enoc was 4. Past Medical History: As indicated as uncontrolled hypertension and gout. Surgical History: Appendectomy, cholecystectomy. Allergies: ACETAMINOPHEN, HYDROCODONE. Medications: At home, clonidine 0.1 mg at bedtime, losartan 50 mg daily. However, he is not taking medications as prescribed. Family History: Positive for hypertension, diabetes, and stroke in his parents. Mother had heart di sease, diabetes. Sister with diabetes. Social History: Smokes up to 9 cigarettes daily. 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 Review of Systems: He denies any recent fevers, chills, nausea, vomiting, myalgias, arthralgias, headache, weight change , rash, or psychiatric issues. No gastrointestinal or genitourinary issues. Physical Examination: Vital Signs: Blood pressure 158/101, pulse 69, respiratory rate 13, temperature 100.2, weight 240 po unds, height 5 feet 8 inches, BMI 36.5. General: Mr. Lerner is resting in bed in ICU. He is in no acute distress. HEENT: He is normocephalic, atraumatic. Sclerae anicteric. Oropharynx is pink and moist. Neck: Supple. Chest: Clear. Heart: Regular. Extremities: Show no edema, cyanosis, or clubbing. Neurological: He is alert and oriented to person, place, situation. He follows all commands appropr iately. Cranial nerves show very subtle left nasolabial fold decrease with good excursions and smili ng. Does report a slight decrease to light touch in the left compared to right face. He has motor e xamination. He is unable to hold the left arm above the bed for more than 10 seconds, actually only about 4 to 5 seconds in the left leg. He can hold at more than 5 seconds on the right side. No issu es lifting or holding his arm up and in terms of proximal distal strength is intact on the right side . The left lower extremity at least 4+ out of 5. Sensory exam reports no difference in the left johan brianna right to light touch and temperature in the upper and lower extremities. Coordination intact in upper and lower extremities. Gait does require moderate assistance to stand and ambulate. Reflexes are symmetric in the upper and lower extremities. Laboratory Studies: White blood cell count 9.5, hemoglobin 13.3, hematocrit 38.7, platelets 228. IN R 1.02. Chemistries: Sodium 141, potassium 3.9, chloride 110, carbon dioxide 27, BUN 15, creatinine 1.52, glucose ranged from 163 to 174. His LDL cholesterol 58, HDL cholesterol 31, total cholesterol 161. Liver function studies show elevated alkaline phosphatase 199. Assessment: Mr. Lerner is a 44-year-old patient with a right subcortical stroke in the setting of un controlled hypertension and likely diabetes mellitus that is undiagnosed and untreated. He is not co mpliant with medications and was not taking aspirin as he was told to many years ago. He continues t o have very elevated blood pressures, but in the next 3 to 5 days may have permissive hypertension, h owever, systolic blood pressure should be kept lower than 180, diastolic possible 90 or slightly lowe r. He may benefit from aggressive physical therapy in using the left arm. Since his job does allow him to sit and work at the desk, he may be able to return to work within about a week. Plan: 1.As indicated, may start lisinopril, actually already did 2.5 mg twice daily. 2.Continue with IV medications for blood pressure management. 3.Aspirin 81 mg daily. 4.High-dose statin as indicated. 5.Plavix 75 mg daily. 6.Patient is instructed to address his diet, to stop smoking, engage in regular exercise and to hydr ate given his renal insufficiency, which is likely related to chronic uncontrolled hypertension. Aft er his discharge, he should follow up in clinic with Dr. Olivas in 1 month. DYLAN/DARYN Voice ID: [id number] Report ID: [id number]
--- NOTE | 2019-03-03 01:55 | P.PN ---
Subjective Date of Service: 03/02/19 Chief Complaint: Acute CVA/hypertensive emergency Patient states his speech is better and he is able to move his left arm more. He has no problem with ambulation. His blood pressure readings have improved. Physical Examination - Vital Signs Temperature: 100.2 F Blood Pressure: 143/94 Pulse: 78 Respirations: 13 Pulse Ox (%): 13 - Physical Exam General: Alert, In no apparent distress, Oriented x3 HEENT: Normocephalic, PERRLA, Mucous membr. moist/pink, EOMI Neck: Supple, 2+ carotid pulse no bruit, JVD not distended Respiratory: Clear to auscultation bilaterally, Normal air movement Cardiovascular: No edema, Regular rate/rhythm, Normal S1 S2 Capillary refill: <2 Seconds Gastrointestinal: Normal bowel sounds, Soft and benign, Non-distended, No tenderness Musculoskeletal: No swelling Integumentary: No rashes, No erythema Neurological: Normal speech, Other (Left upper extremity weakness-4/5.) Assessment And Plan - Current Problems (Diagnosis) (1) Chronic kidney disease, stage 3 Current Visit: Yes Status: Acute (2) Acute CVA (cerebrovascular accident) Current Visit: Yes Status: Acute (3) Hypertensive emergency Current Visit: Yes Status: Acute (4) Obesity Onset Date: 04/30/17 Current Visit: No Status: Chronic Qualifiers: Obesity type: due to excess calories Obesity classification: adult class 2 (BMI 35 - 39.9) Serious obesity comorbidity presence: with serious comorbidity Body mass index: BMI 36.0-36.9 Qualified Code(s): E66.01 - Morbid (severe) obesity due to excess calories; Z68.36 - Body mass index (BMI) 36.0-36.9, adult; Z68.36 - Body mass index (BMI) 36.0-36.9, adult (5) Hypertriglyceridemia Current Visit: Yes Status: Acute (6) DM type 2 (diabetes mellitus, type 2) Current Visit: Yes Status: Acute - Plan Continue aspirin and Plavix. Continue Lipitor. Add TriCor for hyperlipidemia. Allow permissive hypertension, keep systolic blood pressure between 140-180. Continue metoprolol and lisinopril for blood pressure control. Hydralazine IV p.r.n. for BP spikes. Neurology input appreciated. Physical therapy.
[2019-03-03] MEDS: HYDRALAZINE HCL 20 MG/ML VIAL IV PRN ×2 (03:25→21:10)
[2019-03-03] MEDS: TRAMADOL HCL 50 MG TAB PO PRN ×2 (04:44→18:24)
[2019-03-03 05:42] LABS: Basophils % 0.6 % (0-1.3); Hematocrit 40.5 % (39.6-49.0); Lymphocytes % 17.3 % (15.3-44.8)
[2019-03-03 05:49] LABS: Potassium 3.6 mmol/L (3.5-5.1)
[2019-03-03 06:07] LABS: Protime INR 1.05
[2019-03-03] MEDS: lisinopriL 5 MG TAB PO SCH ×2 (08:36→20:39)
[2019-03-03] MEDS: METOPROLOL TAR 50 MG TAB PO SCH ×2 (08:36→20:38)
[2019-03-03] MEDS: CLOPIDOGREL 75 MG TABLET PO SCH (08:36)
[2019-03-03] MEDS: ASPIRIN EC 81 MG TAB PO SCH (08:36)
[2019-03-03] MEDS: ENOXAPARIN 40 MG/0.4 ML SQ SCH (08:37)
--- NOTE | 2019-03-03 10:33 | RAD REPORT ---
EXAM DESCRIPTION: RAD - Chest Single View - 03/03/2019 10:22 am CLINICAL HISTORY: fever elevated wbc Chest pain. COMPARISON: Chest Single View dated 03/01/2019; Chest Single View dated 04/30/2017; CHEST SINGLE VIEW da daniel 11/10/2014 FINDINGS: Portable technique limits examination quality. The lungs are grossly clear. The heart is normal in size. No displaced fractures. IMPRESSION: No acute intrathoracic process suspected.
[2019-03-03 10:56] LABS: Urine Appearance CLEAR; Urine Bilirubin NEGATIVE (NEG); Urine Blood NEGATIVE (NEG); Urine Color YELLOW; Urine Glucose TRACE (NEG); Urine Protein TRACE (NEG); Urine Urobilinogen 0.2 mg/dL (0.2-1.0)
[2019-03-03 11:24] LABS: Urine Microscopic Reflex NO UMIC
--- NOTE | 2019-03-03 15:01 | PN ---
Date of Progress Note: 03/03/2019 Subjective: Patient seen and examined, chart reviewed and case discussed with RN and Dr. Olivas. Patient overall seems to be doing better. Does have some more strength in the left arm, but still no frame bander. Spiking low-grade temperature 100.9. Able to tolerate his diet. Blood pressure is still not well controlled. Medications: List reviewed. Physical Examination: Vital Signs: Temperature 100.8, heart rate 103, blood pressure 167/96, respirations 20, O2 98% on room air. General: Awake, alert, oriented x3, in some mild distress. Obese male. BMI 36.2. CV: S1, S2. Sinus tachycardia. Peripheral pulses present. Respiratory: Moving air well bilaterally. No wheezing or stridor. No use of accessory muscles. Gastrointestinal: Abdomen is soft, nontender, nondistended. Positive bowel sounds. No guarding or rigidity. Extremities: No clubbing or cyanosis. Edema LUE Neuro: Cranial nerves 2 through 12 intact grossly. Patient has weakness in his left arm with diminished frame bander strength and has edema of the left upper extremity, likely is secondary to dependent edema. Laboratory Data: Sodium 143, potassium 3.6, chloride 111, CO2 of 25, BUN 18, creatinine 1.76, glucose 143, calcium 8.8, triglycerides 359, cholesterol 161, LDL 58, HDL 31, WBC 11.8, H and H 14.1 and 40.5, platelets 216, neutrophils 74% . UA is negative. Chest x-ray, personally reviewed, shows no acute intrathoracic process. Assessment: A 44-year-old male with: 1. Acute cerebrovascular accident. MRI of the brain showed 15 mm infarction in the right basal ganglia, right internal capsule. Continue with aspirin, Plavix and statin. 2. Possible 2 mm aneurysm on the ROSEMARIE. Followup MRA in 1 year. Patient is on Lovenox for deep venous thrombosis prophylaxis. Echocardiogram is normal. Appreciate Dr. Olivas's input. We will allow for permissive hypertension due to the acute cerebrovascular accident within 72 hours. 3. Chronic kidney disease stage 3. We will continue to monitor creatinine, likely secondary to hypertensive nephropathy. 4. Hypertensive emergency. Blood pressure is now slightly improved. Follow up blood pressure to stay in the 140s to 180s range due to acute cerebrovascular accident. Adjust medications. 5. Obesity, BMI 36. Counseled. 6. Hypertriglyceridemia. Continue statin. 7. Diabetes mellitus type 2. We will check hemoglobin A1c, non-insulin requiring with hyperglycemia. 8. Fever. Unclear etiology. Obtain UA. Repeat CXR Plan is for transfer to rehab once accepted. Continue PT, OT, transfer out of ICU. /DARYN Voice ID: [id number] Report ID: [id number] MTDChano
[2019-03-03 15:38] LABS: Urine Appearance CLEAR; Urine Bilirubin NEGATIVE (NEG); Urine Blood NEGATIVE (NEG); Urine Color YELLOW; Urine Glucose NEGATIVE (NEG); Urine Protein NEGATIVE (NEG)
[2019-03-03 16:07] LABS: Urine Bacteria <20 /HPF (NONE SEEN); Urine Culture Reflex Order NOT NEEDED; Urine RBC <5 /HPF (NONE SEEN)
[2019-03-03] MEDS: ATORVASTATIN 20 MG TAB PO SCH (20:38)
[2019-03-03] MEDS ORDERED: FENOFIBRATE 48 MG TAB PO SCH (21:00)
[2019-03-04] MEDS: HYDRALAZINE HCL 20 MG/ML VIAL IV SCH ×4 (00:42→17:10)
[2019-03-04] MEDS ORDERED: HYDRALAZINE HCL 20 MG/ML VIAL ONE ×2 (04:37→05:53)
[2019-03-04 04:46] LABS: Protime INR 1.11
[2019-03-04] MEDS ORDERED: METOPROLOL TAR 50 MG TAB ONE ×2 (04:51→21:03)
[2019-03-04 04:56] LABS: Phosphorus 2.8 mg/dL (2.5-4.9); Potassium 3.4 mmol/L (3.5-5.1)
[2019-03-04 05:01] VITALS: BMI 36.0
[2019-03-04] MEDS ORDERED: TRAMADOL HCL 50 MG TAB ONE (05:53)
[2019-03-04] MEDS: METOPROLOL TAR 50 MG TAB PO SCH ×3 (06:12→21:35)
[2019-03-04] MEDS ORDERED: HYDRALAZINE HCL 20 MG/ML VIAL IV PRN (07:38)
[2019-03-04] MEDS ORDERED: DIPHENHYDRAMINE 50 MG/ML VIAL IV PRN (07:39)
[2019-03-04] MEDS ORDERED: ONDANSETRON 4 MG/2 ML VIAL IV PRN (07:39)
[2019-03-04] MEDS ORDERED: PROMETHAZINE INJ 25 MG/ML AMP IV PRN (07:40)
[2019-03-04] MEDS ORDERED: TRAMADOL HCL 50 MG TAB PO PRN (07:40)
[2019-03-04] MEDS: ENOXAPARIN 40 MG/0.4 ML SQ SCH (09:00)
[2019-03-04] MEDS ORDERED: POTASSIUM CL SA 10 MEQ TAB PO ONE ×3 (09:00→21:03)
[2019-03-04] MEDS: ASPIRIN EC 81 MG TAB PO SCH (09:00)
[2019-03-04] MEDS: CLOPIDOGREL 75 MG TABLET PO SCH (09:01)
[2019-03-04] MEDS: lisinopriL 5 MG TAB PO SCH ×2 (09:19→21:35)
[2019-03-04] MEDS ORDERED: ACETAMINOPHEN 325 MG TABLET PO PRN (09:21)
--- NOTE | 2019-03-04 10:29 | RAD REPORT ---
EXAM DESCRIPTION: RAD - Forearm Left - 03/04/2019 9:53 am CLINICAL HISTORY: pain, swelling COMPARISON: Wrist Left 3 View dated 03/04/2019 FINDINGS: Mild radiocarpal arthritic changes are present. Soft tissue swelling is seen about the dis merle aspect of the forearm. Small erosion is seen in the region of the distal ulna. No fracture or dis location apparent.
--- NOTE | 2019-03-04 10:30 | RAD REPORT ---
EXAM DESCRIPTION: RAD - Wrist Left 3 View - 03/04/2019 9:53 am CLINICAL HISTORY: pain, swelling Pain COMPARISON: No comparisons FINDINGS: Soft tissue swelling is seen along the dorsum of the distal forearm. Small subcutaneous ca lcification is present in the region. Mild radiocarpal arthritic changes are seen with focal erosion in the distal ulna identified. No acute fracture or dislocation evident.
[2019-03-04] MEDS: IBUPROFEN 400 MG TAB PO PRN (10:49)
[2019-03-04] MEDS: allopurinoL 100 MG TAB PO SCH (11:23)
[2019-03-04] MEDS: VANCOMYCIN 2 GM in NA CHLORIDE 0.9% 500 ML IV SCH (13:50)
[2019-03-04] MEDS: CEFEPIME/SWI 2gm 2 GM/20 ML SYR IV SCH ×2 (13:50→21:37)
--- NOTE | 2019-03-04 16:44 | PN ---
Date of Progress Note: 03/04/2019 Subjective: Patient is seen and examined. Chart reviewed and case discussed with RN and Dr. Quintero on. Patient is still having significant amount of weakness and pain in the left upper extremity. Medication List: Reviewed. Physical Examination: Vital Signs: Temperature 100.5, T-max was 100.9, heart rate 86, blood pressure 172/96, respirations 18, O2 of 94% on room air. General: Awake, alert, oriented x3, ill-appearing male, obese, in some mild distress. CV: S1, S2. Regular rate and rhythm. Peripheral pulses present. Respiratory: Moving air well bilaterally. No wheezing or stridor. Gastrointestinal: Abdomen is soft, nontender, nondistended. Positive bowel sounds. Extremities: No clubbing or cyanosis. Patient has left upper extremity edema. Musculoskeletal: Tenderness to palpation on the left wrist. Pain with wrist range of motion, which is decreased. Neuro: Patient has weakness on the left upper extremity. No cradle placer strength. Barely able to move the left arm. Barely able to lift left arm against gravity. Strength is 2/5. Laboratory Data: Sodium 138, potassium 3.4, chloride 105, CO2 of 26, BUN 17, creatinine 1.72, glucos e 189. Hemoglobin A1c is 5.7%. Calcium 8.8. Imaging Studies: Forearm shows mild radiocarpal arthritic changes. Soft tissue swelling seen about the distal aspect of the forearm. Small erosion is seen in the region of the distal ulna. No fractu re or dislocation apparent. Wrist x-ray shows small subcutaneous calcification present in the region . Mild radiocarpal arthritic changes with focal erosion of the distal ulna identified. No acute fra cture or dislocation evident. Soft tissue swelling seen along the dorsum of the distal forearm. Assessment: 44-year-old male with: 1.Acute cerebrovascular accident. MRI showing 15 mm infarction in the right basal ganglia and right internal capsule. We will continue with stroke guidelines, aspirin, statin. 2.Hypertriglyceridemia. 3.Possible 2 mm aneurysm on the anterior cerebral artery. Follow up MRA in [address] Olivas's input. 4.Hypertensive emergency. Blood pressure is improved. Allow permissive hypertension in the 140s to 180s range due to acute cerebrovascular accident. 5.Chronic kidney disease, stage 3. We will continue to monitor. Creatinine is stable, likely secon patricia to hypertensive nephropathy. 6.Diabetes mellitus type 2 with hyperglycemia. A1c is 5.6%. We will continue with treatment. 7.Obesity, BMI 36, counseled. 8.Fever, unclear etiology. Chest x-ray and UA are clear. Patient does have swelling and pain of th e left forearm and wrist. No apparent trauma. No signs of cellulitis. However, does have some ulna r erosion, unclear etiology. Consult Orthopedics. We will start on prophylactic IV antibiotics. Ob tain blood cultures. 9.Disposition. Rehab versus SNF. /DARYN Voice ID: [id number] Report ID: [id number]
[2019-03-04] MEDS ORDERED: ATORVASTATIN 40 MG TAB PO SCH (21:00)
[2019-03-04] MEDS ORDERED: FENOFIBRATE 48 MG TAB PO SCH (21:00)
[2019-03-04] MEDS ORDERED: ATORVASTATIN 20 MG TAB ONE ×2 (21:03→21:50)
[2019-03-04] MEDS ORDERED: lisinopriL 5 MG TAB ONE (21:06)
[2019-03-05] MEDS: HYDRALAZINE HCL 20 MG/ML VIAL IV SCH ×3 (00:01→12:25)
[2019-03-05] MEDS ORDERED: HYDRALAZINE HCL 20 MG/ML VIAL ONE ×3 (00:02→12:17)
[2019-03-05 00:31] VITALS: O2SAT 96
--- NOTE | 2019-03-05 04:21 | CON ---
Date of Consultation: 03/04/2019 History Of Present Illness: This is my first time seeing this patient. He is a 44-year-old gentlema n who unfortunately was admitted for an acute CVA. He does have left-sided weakness. I am called to see him as he was complaining of left wrist pain. X-rays were taken which demonstrate some erosive changes of the distal ulna, specifically in the region of the distal radioulnar joint and ulnar head. He may have some mild radiocarpal arthritis as well. Physical Examination: He does have active movement of his fingers and wrist, however, this definitely is not normal active movement, most likely is a consequence of CVA, however, gentle passive and active range of motion of the wrist does not cause significant pain. He says he does have some pain in his elbow and some pain in his wrist. On further review of his history he says he has a history of gout and that he will have problems with his feet swelling, also his hand swelling, his elbow swelling at times, however, he says his pain johnson s decreased. He says this feeling of discomfort came on with administration of contrast for his MRI, however, this does not appear to be any sign of IV infiltration, infection, or any other problem. Assessment: This is a gentleman now with some left wrist pain and erosive changes of the wrist, most likely secondary to an inflammatory arthropathy. He describes this as multiple episodes of gout inv olving his hands and feet. I am not completely sure that this is the approximate cause of his proble ms, however, definitely I do not see the sign of active infection or fracture. I think he could use a wrist brace to assist with discomfort, however, at this point he is very interesting in getting his left hand moving. Obviously, could consider workup for further inflammatory conditions. This may a ctually be gout, however, did not have any direct evidence of that, hopefully, he will do well with his current situation and we may see him in outpatient followup. /DARYN Voice ID: [id number] Report ID: [id number]
[2019-03-05 06:04] LABS: Absolute Lymphocytes (CBC) 1.4 K/uL (0.7-4.9); Basophils % 0.4 % (0-1.3); Hematocrit 37.8 % (39.6-49.0); Lymphocytes % 13.8 % (15.3-44.8); MPV 9.1 fL (7.6-11.3); RBC Red Blood Cell Count 4.52 M/uL (4.33-5.43)
[2019-03-05 06:08] LABS: Protime INR 1.17
[2019-03-05] MEDS ORDERED: METOPROLOL TAR 50 MG TAB ONE (08:16)
[2019-03-05] MEDS ORDERED: HYDRALAZINE HCL 10 MG TABLET ONE (08:16)
[2019-03-05] MEDS ORDERED: lisinopriL 5 MG TAB ONE (08:17)
[2019-03-05] MEDS ORDERED: CLOPIDOGREL 75 MG TABLET ONE (08:17)
[2019-03-05] MEDS ORDERED: ASPIRIN EC 81 MG TAB PO ONE ×2 (08:17→08:50)
[2019-03-05] MEDS ORDERED: IBUPROFEN 400 MG TAB ONE (08:17)
[2019-03-05] MEDS ORDERED: ENOXAPARIN 40 MG/0.4 ML SQ ONE (08:18)
[2019-03-05] MEDS ORDERED: allopurinoL 100 MG TAB ONE (08:30)
[2019-03-05] MEDS: CLOPIDOGREL 75 MG TABLET PO SCH (08:31)
[2019-03-05] MEDS: ENOXAPARIN 40 MG/0.4 ML SQ SCH (08:31)
[2019-03-05] MEDS: lisinopriL 5 MG TAB PO SCH (08:32)
[2019-03-05] MEDS: METOPROLOL TAR 50 MG TAB PO SCH (08:32)
[2019-03-05] MEDS: IBUPROFEN 400 MG TAB PO PRN (08:33)
[2019-03-05] MEDS: allopurinoL 100 MG TAB PO SCH (08:34)
[2019-03-05] MEDS: CEFEPIME/SWI 2gm 2 GM/20 ML SYR IV SCH (08:35)
[2019-03-05] MEDS: ASPIRIN EC 81 MG TAB PO SCH (08:47)
[2019-03-05] MEDS: VANCOMYCIN 2 GM in NA CHLORIDE 0.9% 500 ML IV SCH (12:40)
[2019-03-05 15:18] LABS: Folic Acid, (Folate) 10.9 ng/mL (3.1-17.5)
--- NOTE | 2019-03-05 17:21 | PN ---
Date of Progress Note: 03/05/2019 Subjective: Patient seen and examined, chart reviewed, and case discussed with RN and Dr. Rosales. No acute events overnight. Patient still has weakness in his left upper extremity. Medications: List reviewed. Physical Examination: Vital Signs: Temperature 100.1, heart rate 88, blood pressure 175/98, respirations 17, O2 97% on diogenes m air. General: Awake, alert, and oriented x3, not in any acute distress, obese male. CV: S1, S2. Regular rate and rhythm. Peripheral pulses present. Respiratory: Moving air well bilaterally. No wheezing or stridor. No use of accessory muscles. Gastrointestinal: Abdomen is soft, nontender, nondistended. Positive bowel sounds. Extremities: No clubbing or cyanosis. Patient has edema of the left upper extremity. Neuro: Cranial nerves 2 through 12 intact grossly. 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 Unable to completely lift left upper extremity off the bed. Musculoskeletal: Minimal tenderness to palpation on the left wrist. Laboratory Data: Sodium 137, potassium 4, chloride 104, CO2 of 27, BUN 19, creatinine 1.74, glucose 151, calcium 8.7. WBC 10.2, H and H 13 and 37.8, platelets 195, neutrophils 74%. Blood cultures, no growth to date. Assessment And Plan: 44-year-old male with: 1.Acute cerebrovascular accident 15 mm infarction in the right basal ganglia and right internal caps ule. We will continue with stroke guidelines, aspirin, statin. Continue with Lovenox. Appreciate Chano Olivas's input. Patient will require hypercoagulable workup. 2.Hypertriglyceridemia. Continue statin. Counseled regarding dietary changes. 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 Followup MRA in 1 year. 4.Hypertensive emergency. Blood pressure now improved. Permissive hypertension due to acute cerebr ovascular accident in the 140s 180s range. 5.Chronic kidney disease stage 3. Creatinine is stable, likely secondary to hypertensive nephropath y. 6.Diabetes mellitus type 2 with hyperglycemia. Continue with sliding scale insulin. Monitor blood glucose levels. 7.Obesity, BMI 36. 8.Fever, unclear etiology. Consider ID consultation. Continue with IV antibiotics. Cultures are n egative to date. 9.Left wrist pain. Patient found to have some arthritic changes on x-ray. Appreciate Dr. Rosales 's input with Orthopedics. Does not recommend any intervention at this time. No fracture. Patient may have underlying rheumatoid arthritis given his joint erosions, will need further workup as an out patient. 10.Disposition, discharge to rehab if not accepted. Patient is willing to go to [facility] for physical therapy. /DARYN Voice ID: [id number] Report ID: [id number]
[2019-03-05 18:44] VITALS: BP 168/96; TEMP 98.9
--- NOTE | 2019-03-06 02:19 | DS ---
Date of Discharge: 03/05/2019 Consultants: 1.Dr. Rosales, Orthopedics. 2.Dr. Olivas with Neurology. Admitting Diagnoses: 1.Hypertensive emergency. 2.Acute cerebrovascular accident. 3.Acute renal insufficiency. 4.Obesity. Discharge Diagnoses: 1.Acute cerebrovascular accident, right basal ganglia and right internal capsule with left-sided wea kness. 2.Hypertriglyceridemia. 3.Possible 2 mm aneurysm in the anterior cerebral artery. Followup MRI in 1 year. 4.Hypertensive emergency, improved. 5.Chronic kidney disease stage 3, stable. 6.Diabetes mellitus type 2 with hyperglycemia, stable. 7.Fever, unclear etiology. 8.Obesity, BMI 36. 9.Left wrist pain. 10.Arthritis, possibly rheumatoid. 11.Gout. Hospital Course: Patient is a 44-year-old male with past medical history of hypertension, gout, not well controlled, comes in with left-sided weakness and aphasia. Patient was outside the window of tr eatment because he was last known well at 10 p.m., woke up at 4 a.m., unable to move the left side an d was aphasic. Patient has family history with uncle having stroke at the age of 46. Patient came i n with a blood pressure that was significantly elevated in the 200s/100. Patient was worked up for [facility]. His MRI showed 15 mm infarction in the right basal ganglia and internal capsule. He was started on stroke guidelines. MRA of the brain showed a questionable 2 mm aneurysm in the ROSEMARIE. Recommendat ions were made for followup MRA in 1 year. He was seen by Dr. Olivas who is a neurologist. He was continued on statin, aspirin, and Lovenox. MRI of the neck was unremarkable. CT angio of the neck was also unremarkable as well as CT angio of the head and did not show any aneurysm. Also on the hea d CT found to have mario cisterna magna versus right posterior fossa cyst. Patient did well. Over course of the hospital stay, his speech normalized; however, he still had continued weakness in the left side of his arm. Patient also reported some pain with movement. Therefore, x-ray of the wrist and forearm were done, showed some erosions of the ulna as well as some arthritic changes in the rad iocarpal joints. Patient was seen by Dr. Rosales with Orthopedics. He did not recommend any inter vention. Patient continued to have high fevers. No clear etiology for the fever was obtained. His chest x-ray was clear. His UA was negative. Did not have any other source. Continued to have high fevers, therefore cultures were obtained and placed on empiric antibiotics. Patient's white blood ce ll count was mildly elevated and normalized. He also had some chronic renal insufficiency, likely du e to his long-standing uncontrolled blood pressure. Due to his young age and presenting symptoms of stroke, hypercoagulable workup was initiated. He will need to follow up with his neurologist for fur ther interpretation and treatment if necessary. Patient does have family history, which elicits some genetic disposition for premature stroke. Patient was then accepted to rehab facility and was disch arged in a stable condition. Activity: As per rehab. Medications: As per medication reconciliation list. Followup: Follow up with primary care physician in 2-3 days. Follow up with neurologist, Dr. Sherron richardson, in 2-4 weeks. Return to ER for worsening condition. Follow up with Dr. Rosales, Orthopedics, in 2 weeks. For physical exam findings, please see progress note dictated on day of discharge. Total time spent discharging the patient was 41 minutes. /DARYN Voice ID: [id number] Report ID: [id number]
[2019-03-06 05:43] LABS: RPR (Rapid Plasma Reagin) NON-REACT (NON-REACT)
[2019-03-09 12:47] LABS: Prothrombin Gene Analysis Test REPORT
[2019-03-09 13:08] LABS: Protein C Antigen 70 % (70-140)
[2019-03-10 14:52] LABS: Albumin, (SPE) 3.5 g/dL (3.8-4.8); Alpha-1-Globulins 0.4 g/dL (0.2-0.3); Alpha-2-Globulins 0.6 g/dL (0.5-0.9); Gamma Globulins 1.4 g/dL (0.8-1.7); INTERPRETATION REPORT
== END 2019-03-05 16:42 | DRG 65 ==
LOC: ER 04:36 → ERHOLD 07:30 → 3RD-ICU 16:12 → 2ND 03-03 12:40
PROVIDERS: ADMIT Hospitalist; ATTEND Family Medicine
DX: I63.89 Other cerebral infarction (principal); G81.94 Hemiplegia, unspecified affecting left nondominant side; R47.01 Aphasia; R29.704 NIHSS score 4; I16.0 Hypertensive urgency; E66.09 Other obesity due to excess calories; E78.1 Pure hyperglyceridemia; N18.3 Chronic kidney disease, stage 3 (moderate); I12.9 Hypertensive chronic kidney disease with stage 1 through stage 4 chronic kidney disease, or unspecified chronic kidney disease; E11.65 Type 2 diabetes mellitus with hyperglycemia; E11.22 Type 2 diabetes mellitus with diabetic chronic kidney disease; M25.532 Pain in left wrist; M06.9 Rheumatoid arthritis, unspecified; I67.1 Cerebral aneurysm, nonruptured; R50.9 Fever, unspecified; M10.9 Gout, unspecified; Z68.36 Body mass index [BMI] 36.0-36.9, adult
CPT/HCPCS: 36415; 70450; 70496; 70498; 70544; 70549; 70553; 71045; 80048; 80053; 80061; 81001; 81003; 81240; 81241; 82306; 82607; 82746; 82947; 83036; 83090; 83735; 84100; 84132; 84145; 84165; 84484; 85025; 85300; 85302; 85305; 85306; 85610; 85730; 86021; 86592; 87040; 93005; 93306; 96361; 96365; 96375; 97110; 97112; 97116; 97161; 97165; 99285; A9577; J0360; J0692; J1650; J2175; J2405; J2550; J7030; J7040; Q9967

== ENCOUNTER 2019-03-05 10:04 | Inpatient (IN) | payer OTHER ==
--- NOTE | 2019-03-05 13:27 | R.PREADM ---
SCREENING DATE AND TIME 03/05/2019 08:18 (PST) ANTICIPATED REHAB ADMISSION DATE 03/07/2019 REFERRING FACILITY [facility] REFERRAL DATE AND TIME 03/05/2019 10:18 (PC TECHNICIAN) REFERRAL ROOM# 218 ACUTE ADMIT DATE 03/01/2019 Previous Rehabilitation(s): No. 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 Rios REFERRING PHYSICIAN REHAB FACILITY [facility] CLINICAL LIAISON YOSEF GARCIA PHYSICIAN REVIEWER Dr. Ervin Olivas M.D. [facility]# [id number] [id number] NAME JOSELYN LERNER ADDRESS [address] [place] [address] DATE OF 1975 AGE 44 SSN# [id number] GENDER male MARITAL STATUS RACE ADMIT FROM 02 - [facility] PRE-HOSPITAL LIVING SETTING 01 - Home (private home/apt. board/care, assisted living, correction, transitional living) HOME TYPE AND DETAILS Type of home: single family house # of levels in the residence: # of steps within the residence: 3 # of steps to enter the residence: 3 PRE-HOSPITAL LIVING WITH Attendant FAMILY SUPPORT Yes PRIMARY FAMILY CONTACT NAME Tammi Khanna PRIMARY FAMILY CONTACT PHONE PRIMARY FAMILY CONTACT RELATIONSHIP Sister PHONE PRIMARY FAMILY CONTACT ON ADM.? no IS PRIMARY FAMILY CONTACT AUTH. REP.? no 1ST EMERGENCY CONTACT Tammi Khanna 1ST CONTACT PHONE 1ST CONTACT RELATIONSHIP Sister PHONE 1ST CONTACT ON ADM. no IS 1ST CONTACT AUTH. REP.? no PHONE 2ND CONTACT ON ADM.? 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 No ANOTHER LIBERTARIAN RESPONSIBLE? No PRIMARY REHAB/ACUTE DIAGNOSIS: right basal ganglia infarct ONSET DATE 03/01/2019 REHAB IMPAIRMENT CATEGORY (LAYLA): 01 Stroke (STR) MEETS 60% rule AFFECTED EXTREMITIES: LLE, and LUE PRIMARY DIAGNOSIS-RELATED SURGERIES: No surgeries related to the primary diagnosis were performed. COMORBID REHAB/ACUTE DIAGNOSES: - N/A Uncontrolled HTN gout Appendectomy Cholecystectomy SUMMARY OF ACUTE HOSPITALIZATION: Pt. is a 44 yo Right-handed male. On 03/01/2019 Pt. presented to [facility] with sudden onset of left-side weakness. On 03/01/2019 he was admitted to [facility] with diagnosis right basal ganglia infarct. His impairment category is Stroke 01 - Left Body (Right Brain) (01.1). Pre-morbidly, Pt. was independent/mod-I in Balance, Safety Awareness, Self-Care, Locomotion, Transfer s Control, Sphincter Control, Communication, Endurance, and Social Cognition; and he had good Locomot ion, Safety Awareness, Balance, Social Cognition, Transfers Control, Sphincter Control, Self-Care, Co mmunication, and Endurance. Currently, he has deficits of Balance, Locomotion, Safety Awareness, Transfers Control, and Endurance . Pt. is now referred to [facility] for acute in-patient rehabilitation in order to maximize patient's functional independence in activities of daily living, strength, ROM, and mobi lity. Patient has realistic goal of being discharged at assistance level 6-Sangita to reside at Home with Fam otilio/Relatives. Joselyn Lerner is a 44 year old gentleman who lives in a single story house with 3 steps to enter. He came into the hospital with left side weakness and aphasia. Patient went to sleep and woke up unable to move his left side effectively. He woke up his sister who lives in the house with him and she significant elevated blood pressure. Patient has not been taking his blood pressure medication. Patient has been admitted at [facility] and tends to have very high BP with diastolic greater than 100s, routinely. He is now medically stable but in need of 24 hour nursing, doctor supervision and oversight while receiving active and ongoing participate in 3 hours of therapy a day/15 hours per week and receive care with intensive interdisciplinary approach. PAST MEDICAL HISTORY Appendectomy Cholecystectomy Uncontrolled HTN gout MEDICATION ALLERGIES: acetaminophen hydrocodone ENVIRONMENTAL ALLERGIES: - Substance Allergies None Known - Other Allergies None Known CODE STATUS: Full code WEIGHT/HEIGHT/BMI: WEIGHT 240 lbs HEIGHT 5' 8" BMI 36.5 DIET: - Diet Type Regular - Diet - Solid Texture Regular - Diet - Liquid Texture Regular - Tube Feed N/A REVIEW OF SYSTEMS: - Gen Alert and awake Sitting edge of bed In distress secondary to pain Oriented to: person, time, and place - Vital Signs Temperature: 99.2 F SBP/DBP: 165/101 Pulse: 84 Resp: 14 Vital signs stable, afebrile - CVS RRR VITAL SIGNS Temperature: 99.2 F SBP/DBP: 165/101 Pulse: 84 Resp: 14 Vital signs stable, afebrile MEDICATIONS/TREATMENT: Other- See attached MAR (Medication Administration Record). CURRENT SPHINCTER CONTROL: Pre-hospital bladder status: continent # of bladder accidents in the last 7 days prior to screenin Pre-hospital bowel status: continent # of bowel accidents in the last 7 days prior to screenin Last Bowel Movement Date: CURRENT LOCOMOTION STATUS: distance walked 540 feet DETAILED CURRENT FUNCTIONAL STATUS: - Bladder accident frequency: Ind - No accidents in the past 7 days - Bowel accident frequency: Ind - No accidents in the past 7 days - Walking score based on distance walked: 3(>=150ft) - Wheelchair score based on distance traveled: 0(N/A) QI SCORES: - Self-Care A. Eating 06-Independent B. Oral hygiene 06-Independent C. Toileting hygiene 06-Independent E. Shower/bathe self 04-Supervision or touching assistance F. Upper body dressing 04-Supervision or touching assistance G. Lower body dressing 03-Partial/moderate assistance H. Putting on/taking off footwear 04-Supervision or touching assistance - Mobility A. Roll left and right 04-Supervision or touching assistance B. Sit to lying 04-Supervision or touching assistance C. Lying to sitting on side of bed 04-Supervision or touching assistance D. Sit to stand 04-Supervision or touching assistance E. Chair/fqz-qq-xgfpy transfer 04-Supervision or touching assistance F. Toilet transfer 04-Supervision or touching assistance G. Car transfer 88-Not attempted due to medical condition or safety concerns I. Walk 10 feet 04-Supervision or touching assistance J. Walk 50 feet with two turns 04-Supervision or touching assistance K. Walk 150 feet 04-Supervision or touching assistance L. Walking 10 feet on uneven surfaces 88-Not attempted due to medical condition or safety concerns M. 1 step (curb) 88-Not attempted due to medical condition or safety concerns N. 4 steps 88-Not attempted due to medical condition or safety concerns O. 12 steps 88-Not attempted due to medical condition or safety concerns P. Picking up object 04-Supervision or touching assistance R. Wheel 50 feet with two turns 88-Not attempted due to medical condition or safety concerns S. Wheel 150 feet 88-Not attempted due to medical condition or safety concerns - Bladder and Bowel Bladder continence 0-Always continent Bowel continence 0-Always continent - Endurance Fair - Balance Fair - Safety Awareness Fair CURRENT [facility]. DEFICITS: Mobility, Endurance, Balance, Safety Awareness, and Self-Care CURRENT / PREVIOUS ASSISTIVE DEVICES: 3-in-1 Commode [facility] Hospital Bed Rolling Walker Shower Chair Tub Bench Wheelchair HISTORY OF FALLS. HAS THE PATIENT HAD TWO OR MORE FALLS IN THE PAST YEAR OR ANY FALL WITH INJURY IN T HE PAST YEAR?: No PRIOR SURGERY. DID THE PATIENT HAVE MAJOR SURGERY DURING THE 100 DAYS PRIOR TO ADMISSION?: No THERAPY NOTES FROM ACUTE CARE: Attached. SPECIAL NEEDS: - Safety Concerns Skin breakdown precautions needed due to skin breakdown risk PRECAUTIONS: - Weight Bearing Precaution WBAT left LE PATIENT NEEDS ACTIVE AND ONGOING THERAPEUTIC INTERVENTION OF MULTIPLE THERAPY DISCIPLINES, INCLUDING: - Occupational Therapy Cognitive Retraining. Visual Perceptual Training. - Dietary and Nutrition Adequate Nutrition. Nutritional Education. Nutritional Supplements. - Speech Therapy Cognitive Training. Expressive Language Skills. Memory Strategies. Receptive Language Skills. Speech Intelligibility Training. PATIENT NEEDS CLOSE MEDICAL SUPERVISION BY A REHABILITATION PHYSICIAN FOR: Coordination of Treatment Team Medical and Co-Morbidity Management PATIENT REQUIRES 24X7 REHAB NURSING FOR MEDICAL AND FUNCTIONAL MGT. OF THE FOLLOWING DEFICITS: Disease Management Medication Management Patient/Family Education Providing Safe Environment PATIENT REQUIRES INTENSIVE, COORDINATED INTERDISCIPLINARY APPROACH TO REHAB: Arranging Home Equipment/Services Discharge Planning Family Intervention/Training Bi Application Developer/Case Management PATIENT REHAB POTENTIAL: Velia LERNER is able and expected to receive 3 hours of individualized therapy daily on at least 5 of ev steffi 7 days Velia LERNER's prognosis for significant practical improvement within a reasonable period of time appear s Good Expected level of measurable improvement will be of a practical value to Velia LERNER's functional capac ity or adaptations to impairments Has a viable Discharge Plan Medically appropriate; condition is sufficiently stable to participate in intensive rehab program DISCHARGE PLAN: - Estimated Length of Stay (days) 17. - Consensus on plan Discharge plan has been discussed with primary caregiver. Patient/Family is in agreement with the tiff n. Primary caregiver is in agreement with the plan. - Patient/Family Goals Return home with assistance. - Planned Living Setting Upon Discharge Home, to live with Family/Relatives. Home. RECOMMENDED CARE LEVEL: IRF RECOMMENDATION DETAILS: Recommended Admission to Comprehensive Rehabilitation Program to Increase Functional [place] SCREENER'S COMPLETENESS CONFIRMATION: - Screening Confirmation The patient data collection on this preadmission screening form is finished PHYSICIANS REVIEW AND ADMISSION DETERMINATION Admit - Based on my review of the Pre-Admission Screening results, in my medical judgment and experie nce, I concur with the findings and recommend admission to [facility], as this patient requires an IRF level of care. SIGNATURE PANEL: Clinical Liaison - [electronically] signed by Lito Garay on 03/05/2019 at 11:30 (PC TECHNICIAN) Clinical Liaison - [electronically] signed by Yosef Garcia on 03/05/2019 at 13:24 (PC TECHNICIAN) Physician Reviewer - [electronically] signed by Dr. Ervin Olivas M.D. on 03/05/2019 at 13:26 (PC TECHNICIAN )
[2019-03-05] MEDS ORDERED: PROMETHAZINE INJ 25 MG/ML AMP IV PRN (17:01)
[2019-03-05] MEDS ORDERED: HYDRALAZINE HCL 20 MG/ML VIAL IV PRN (17:01)
[2019-03-05] MEDS ORDERED: ONDANSETRON 4 MG/2 ML VIAL IV PRN (17:01)
[2019-03-05] MEDS ORDERED: TRAMADOL HCL 50 MG TAB PO PRN (17:01)
[2019-03-05] MEDS ORDERED: IBUPROFEN 400 MG TAB PO PRN (17:01)
[2019-03-05] MEDS ORDERED: DIPHENHYDRAMINE 50 MG/ML VIAL IV PRN (17:01)
[2019-03-05] MEDS: ENOXAPARIN 40 MG/0.4 ML SQ SCH (17:38)
[2019-03-05] MEDS ORDERED: HYDRALAZINE HCL 20 MG/ML VIAL IV SCH (18:00)
[2019-03-05] MEDS: CEFEPIME/SWI 2gm 2 GM/20 ML SYR IV SCH (19:45)
[2019-03-05] MEDS: FENOFIBRATE 48 MG TAB PO SCH (19:46)
[2019-03-05] MEDS: ATORVASTATIN 40 MG TAB PO SCH (19:46)
[2019-03-05] MEDS ORDERED: lisinopriL 5 MG TAB PO SCH ×2 (20:00)
[2019-03-05] MEDS ORDERED: METOPROLOL TAR 50 MG TAB PO SCH (20:00)
[2019-03-06] MEDS: lisinopriL 5 MG TAB PO SCH ×2 (07:12→19:47)
[2019-03-06] MEDS: TRAMADOL HCL 50 MG TAB PO PRN (07:13)
[2019-03-06] MEDS: CEFEPIME/SWI 2gm 2 GM/20 ML SYR IV SCH ×2 (07:44→19:47)
[2019-03-06 07:47] LABS: Absolute Lymphocytes (CBC) 0.9 K/uL (0.7-4.9); Basophils % 0.6 % (0-1.3); Hematocrit 37.8 % (39.6-49.0); Lymphocytes % 10.1 % (15.3-44.8); RBC Red Blood Cell Count 4.48 M/uL (4.33-5.43)
[2019-03-06] MEDS ORDERED: METOPROLOL TAR 50 MG TAB PO SCH (08:00)
[2019-03-06 08:09] LABS: Albumin 3.4 g/dL (3.4-5.0); Magnesium 2.2 mg/dL (1.8-2.4); Potassium 3.9 mmol/L (3.5-5.1); Prealbumin 13.3 mg/dL (20-40)
[2019-03-06] MEDS ORDERED: GLUCAGON 1 MG/VIAL IM PRN (09:36)
[2019-03-06] MEDS ORDERED: D50W 25 GM/50 ML SYRINGE/VIAL IV PRN (09:36)
--- NOTE | 2019-03-06 09:53 | P.RH.PN ---
Estimated Length of Stay: 14 Expected Discharge Date: 03/18/19 Discharge Disposition Plan: Home Family Support: Yes Care Home Goal: Mobility, Transfers, Self Care Vital Signs: Last Vital Signs Temp 97.6 F 03/06/19 08:00 Pulse 84 03/06/19 08:00 Resp 15 03/06/19 08:13 BP 185/111 H 03/06/19 08:00 Pulse Ox 97 03/06/19 08:13 Laboratory: Laboratory Last Values WBC 9.1 K/uL (4.3-10.9) 03/06/19 07:30 RBC 4.48 M/uL (4.33-5.43) 03/06/19 07:30 Hgb 13.1 g/dL (13.6-17.9) L 03/06/19 07:30 Hct 37.8 % (39.6-49.0) L 03/06/19 07:30 MCV 84.4 fL (80-100) 03/06/19 07:30 MCH 29.1 pg (27.0-35.0) 03/06/19 07:30 MCHC 34.5 g/dL (32.0-36.0) 03/06/19 07:30 RDW 13.9 % (12.1-15.2) 03/06/19 07:30 Plt Count 215 K/uL (152-406) 03/06/19 07:30 MPV 9.0 fL (7.6-11.3) 03/06/19 07:30 Neutrophils % 78.9 % (41.7-73.7) H 03/06/19 07:30 Lymphocytes % 10.1 % (15.3-44.8) L 03/06/19 07:30 Monocytes % 10.1 % (3.3-12.3) 03/06/19 07:30 Eosinophils % 0.3 % (0-4.4) 03/06/19 07:30 Basophils % 0.6 % (0-1.3) 03/06/19 07:30 Absolute Neutrophils 7.2 K/uL (1.8-8.0) 03/06/19 07:30 Absolute Lymphocytes 0.9 K/uL (0.7-4.9) 03/06/19 07:30 Absolute Monocytes 0.9 K/uL (0.1-1.3) 03/06/19 07:30 Absolute Eosinophils 0.0 K/uL (0-0.5) 03/06/19 07:30 Absolute Basophils 0.1 K/uL (0-0.5) 03/06/19 07:30 Sodium 135 mmol/L (136-145) L 03/06/19 07:30 Potassium 3.9 mmol/L (3.5-5.1) 03/06/19 07:30 Chloride 105 mmol/L (98-107) 03/06/19 07:30 Carbon Dioxide 24 mmol/L (21-32) 03/06/19 07:30 BUN 23 mg/dL (7-18) H 03/06/19 07:30 Creatinine 1.75 mg/dL (0.55-1.3) H 03/06/19 07:30 Estimated GFR 42 mL/min (=/>90) L 03/06/19 07:30 Glucose 141 mg/dL (74-106) H 03/06/19 07:30 Calcium 9.0 mg/dL (8.5-10.1) 03/06/19 07:30 Magnesium 2.2 mg/dL (1.8-2.4) 03/06/19 07:30 Albumin 3.4 g/dL (3.4-5.0) 03/06/19 07:30 Prealbumin 13.3 mg/dL (20-40) L 03/06/19 07:30 Weight: 229 lb Wound Present: No Physician Update: His labs reviewed and are stable. His left arm is still very weak but he can ambulate independently. He may make progress over the next week with left arm weakness. Summary: Patient's care plan and intermediate designer goals have been reviewed and revised as necessary. Please see the Rehabilitation Signature page for all necessary signatures.
[2019-03-06] MEDS: allopurinoL 100 MG TAB PO SCH (11:12)
[2019-03-06] MEDS: CLOPIDOGREL 75 MG TABLET PO SCH (11:12)
[2019-03-06] MEDS: ASPIRIN EC 81 MG TAB PO SCH (11:13)
[2019-03-06] MEDS: ENOXAPARIN 40 MG/0.4 ML SQ SCH (11:13)
[2019-03-06] MEDS ORDERED: HYDRALAZINE HCL 10 MG TABLET PO PRN (11:51)
[2019-03-06] MEDS: INSULIN -REGULAR HUMAN 50 UNIT/0.5 ML ML SQ SCH ×3 (12:28→20:58)
[2019-03-06] MEDS ORDERED: VANCOMYCIN 2 GM in NA CHLORIDE 0.9% 500 ML IV SCH ×2 (13:00→19:00)
[2019-03-06] MEDS ORDERED: METOPROLOL TAR 25 MG TAB PO ONE (13:36)
--- NOTE | 2019-03-06 14:27 | FAST ---
ENCOUNTER DATE AND TIME: 03/06/2019 08:00 (DEVICE SALES CONSULTANT) NAME AARON BARAJAS DATE OF : 1975 DATE OF ADMISSION: 03/05/2019 16:44 (DEVICE SALES CONSULTANT) PHONE: AGE: 44 N# [id number] GENDER: Male ENCOUNTER PHYSICIAN: Dr. Ervin Olivas M.D. ADMISSION DIAGNOSIS: - Stroke 01 - Left Body (Right Brain) (01.1) right basal ganglia infarct. EATING: Not assessed/no information CODE: - ORAL HYGIENE: Not assessed/no information CODE: - TOILETING HYGIENE: Not assessed/no information CODE: - BATHING: SHOWER/BATHE SELF - STEP 1: Does the patient complete the activity by him/herself with no assistance (physical, verbal/nonverbal cueing, setup/clean-up)? No. SHOWER/BATHE SELF - STEP 2: Does the patient need only setup/clean-up assistance from one helper? No. SHOWER/BATHE SELF - STEP 3: Does the patient need only verbal/nonverbal cueing or touching/steadying/contact guard assistance fro m one helper? Yes. 1. [id number] ADMISSION PERFORMANCE: Supervision or touching assistance CODE: 04 DRESSING - UPPER BODY: DRESSING - UPPER BODY - STEP 1: Does the patient complete the activity by him/herself with no assistance (physical, verbal/nonverbal cueing, setup/clean-up)? No. DRESSING - UPPER BODY - STEP 2: Does the patient need only setup/clean-up assistance from one helper? No. DRESSING - UPPER BODY - STEP 3: Does the patient need only verbal/nonverbal cueing or touching/steadying/contact guard assistance fro m one helper? Yes. 1. [id number] ADMISSION PERFORMANCE: Supervision or touching assistance CODE: 04 DRESSING - LOWER BODY: DRESSING - LOWER BODY - STEP 1: Does the patient complete the activity by him/herself with no assistance (physical, verbal/nonverbal cueing, setup/clean-up)? No. DRESSING - LOWER BODY - STEP 2: Does the patient need only setup/clean-up assistance from one helper? No. DRESSING - LOWER BODY - STEP 3: Does the patient need only verbal/nonverbal cueing or touching/steadying/contact guard assistance fro m one helper? Yes. 1. [id number] ADMISSION PERFORMANCE: Supervision or touching assistance CODE: 04 PUTTING ON/TAKING OFF FOOTWEAR: FOOTWEAR - STEP 1: Does the patient complete the activity by him/herself with no assistance (physical, verbal/nonverbal cueing, setup/clean-up)? No. FOOTWEAR - STEP 2: Does the patient need only setup/clean-up assistance from one helper? No. FOOTWEAR - STEP 3: Does the patient need only verbal/nonverbal cueing or touching/steadying/contact guard assistance fro m one helper? Yes. 1. [id number] ADMISSION PERFORMANCE: Supervision or touching assistance CODE: 04 DOES THE PATIENT USE A WHEELCHAIR/SCOOTER? CODE: EXPR INDICATE THE TYPE OF WHEELCHAIR/SCOOTER USED: CODE: EXPR INDICATE THE TYPE OF WHEELCHAIR/SCOOTER USED: CODE: EXPR BLADDER AND BOWEL: CODE: EXPR CODE: EXPR SIGNATURE PANEL: The following modified sections: 1. [id number] Admission Performance, 1. CX6382l Admission Performance, 1. [id number] Admission Performance, 1. CX3103j Admission Performance, 1. [id number] Admission Performance were [electronically] signed by Diana Buckley OT on SatMar 06 2019 14:27:25 GMT-0600 ([facility] Standard Time)
--- NOTE | 2019-03-06 15:40 | CON ---
History Of Present Illness: This is a 44-year-old male who was brought in by his sister after felt t hat he has left-sided weakness and aphasia. Patient was found to have a stroke on MRI involving 15 m m acute infarction, right basal ganglia and right internal capsule. Patient denies any other problem s at this time. No burning urination, diarrhea, constipation, shortness of breath, coughing, or any rashes or skin lesion or wounds. 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 Patient has his tory of elevated blood pressure and is not consistently taking his medication because of his insuranc e challenges. Also, patient was found to have high cholesterol and history of tobacco use since age 19. Past Medical History: Hypertension, gout, appendectomy, and cholecystectomy. Social History: Tobacco positive. Alcohol negative. Family History: Diabetes, hypertension. Medications: Vancomycin, cefepime. See MAR for other medications. Allergies: INCLUDE TYLENOL, HYDROCODONE. Review of Systems: A 10-point review was performed. Physical Examination: General: This is a 44-year-old male, sitting in examining table, not in any acute distress. Vital Signs: Temperature 97, pulse 84, respirations 16, blood pressure 185/111. HEENT: Unremarkable. Neck: Supple. Lungs: Basal crackles. Heart: S1, S2. Regular. Abdomen: Soft, nontender. Bowel sounds present. Extremities: Left arm 1+ edema. Laboratory Data: Shows WBC 9.1, hemoglobin 13.1, platelets are 215. Chemistry shows sodium 135, pot assium 3.9, chloride 105, bicarb 24, BUN 23, creatinine 1.7, glucose 141. Prealbumin is 13.3. Chest x-ray done on 03/03/2019, shows no acute infiltrate. Assessment And Plan: A 44-year-old male with recent stroke, most likely secondary to uncontrolled hy pertension and tobacco usage. We will recommend to send procalcitonin, hold off on antibiotic at thi s time, pending culture results. Continue supportive care. We will monitor for signs of infection. Repeat cultures if patient spikes fever of more than 100. Thank you Dr. Rios for consult. NF/MODL Voice ID: [id number] Report ID: [id number]
[2019-03-06] MEDS: HYDRALAZINE HCL 10 MG TABLET PO PRN (16:12)
[2019-03-06] MEDS ORDERED: HYDRALAZINE HCL 10 MG TABLET PO SCH (17:00)
[2019-03-06] MEDS ORDERED: cloNIDine HCL 0.1 MG TAB PO ONE (17:27)
[2019-03-06] MEDS: PROMOD 30 ML DOSE PO SCH (19:48)
[2019-03-06] MEDS: METOPROLOL TAR 50 MG TAB PO SCH (19:48)
[2019-03-06] MEDS: ATORVASTATIN 40 MG TAB PO SCH (20:58)
[2019-03-06] MEDS: FENOFIBRATE 48 MG TAB PO SCH (20:59)
--- NOTE | 2019-03-06 21:06 | PN ---
Date of Progress Note: 03/06/2019 Subjective: Patient is seen and examined. Chart reviewed and case discussed with RN, Dr. Olivas, and Dr. Fitzgerald. Patient was discharged to inpatient rehab for his stroke. Patient continues to have some fever spikes as well as weakness in his left arm. Medications: List reviewed. Physical Examination: Vital Signs: Temperature 97.6, heart rate 84, blood pressure 185/111, respirations 16, O2 of 98% on room air. General: Awake, alert, oriented x3. Obese male, not in any acute distress. CV: S1, S2. Regular rate and rhythm. Peripheral pulses present. Respiratory: Moving air well bilaterally. No wheezing or stridor. Gastrointestinal: Abdomen is soft, nontender, nondistended. Positive bowel sounds. Extremities: No clubbing or cyanosis. Patient has edema of the left upper extremity. Neurologic: Patient has weakness of the left upper extremity including candy packer strength. Laboratory Data: Sodium 135, potassium 3.9, chloride 105, CO2 of 24, BUN 23, creatinine 1.75, glucos e 141, calcium 9. Magnesium 2.2, albumin 3.4, pre-albumin is 13.3, procalcitonin 0.32. WBC 9.1, hem oglobin and hematocrit 13.1/37.8, platelets 215, neutrophils 78%. Assessment: A 44-year-old male with: 1.Acute cerebrovascular accident, right basal ganglia, right internal capsule, left-sided weakness. 2.Hypertriglyceridemia. 3.Fever, unclear etiology. Patient now has been afebrile for over 12 hours. We will discontinue an tibiotics if continues to be afebrile. Blood cultures were negative. 4.Hypertensive emergency. Blood pressure still not well controlled, still 200 systolic. We will in crease hydralazine to 20 mg p.o. q.4 p.r.n. and may need to add clonidine patch. 5.Chronic kidney disease, stage 3. 6.Diabetes mellitus type 2 with hyperglycemia. We will adjust sliding scale insulin. Monitor blood glucose levels. 7.Obesity. BMI 36. 8.Left wrist pain, improved. Continue with splint. 9.Arthritis, may be rheumatoid arthritis. We will need outpatient workup. 10.Gout. Continue allopurinol. Plan: We will adjust blood pressure medications. Monitor for signs of fever, sepsis. Discontinue a ntibiotics if improving. Blood cultures are negative. Appreciate Dr. Fitzgerald's input. We will jennifer epi to follow along with you. /DARYN Voice ID: [id number] Report ID: [id number]
--- NOTE | 2019-03-06 22:07 | R.HP ---
FACILITY: [facility] ENCOUNTER DATE AND TIME: 03/06/2019 21:57 (RECRUITMENT INTERNSHIP) MR#: [id number] NAME JOSELYN BARAJAS ADDRESS: [address] CITY: [place] STATE: [place]IP [id number] PHONE: DATE OF : 1975 AGE: 44 SSN# [id number] GENDER: Male DEXTERITY Right-handed MARITAL STAT[employer] PRE-HOSPITAL LIVING SETTING 01 - Home (private home/apt. board/care, assisted living, shelter, transitional living) PRE-HOSPITAL LIVING WITH Attendant ENCOUNTER PHYSICIAN: Dr. Ervin Olivas M.D. REFERRING DOCTOR: DATE OF ADMISSION: 03/05/2019 16:44 (RECRUITMENT INTERNSHIP) REFERRING FACILITY [facility] HOME TYPE AND DETAILS: Type of home: single family house # of levels in the residence: # of steps within the residence: 3 # of steps to enter the residence: 3 ADMISSION DIAGNOSIS: right basal ganglia infarct ONSET DATE: 03/01/2019 PRIMARY DIAGNOSIS-RELATED SURGERIES: No surgeries related to the primary diagnosis were performed. SECONDARY/COMORBID DIAGNOSES (TIERED): - N/A Uncontrolled HTN gout Appendectomy Cholecystectomy HISTORY OF PRESENT ILLNESS (HPI): Pt. is a 44 yo Right-handed male. On 03/01/2019 Pt. presented to [facility] with sudden onset of left-side weakness. On 03/01/2019 he was admitted to [facility] with diagnosis right basal ganglia infarct. His impairment category is Stroke 01 - Left Body (Right Brain) (01.1). Pre-morbidly, Pt. was independent/mod-I in Balance, Safety Awareness, Self-Care, Locomotion, Transfer s Control, Sphincter Control, Communication, Endurance, and Social Cognition; and he had good Locomot ion, Safety Awareness, Balance, Social Cognition, Transfers Control, Sphincter Control, Self-Care, Co mmunication, and Endurance. Currently, he has deficits of Balance, Locomotion, Safety Awareness, Transfers Control, and Endurance . Pt. is now referred to [facility] for acute in-patient rehabilitation in order to maximize patient's functional independence in activities of daily living, strength, ROM, and mobi lity. Patient has realistic goal of being discharged at assistance level 6-Sangita to reside at Home with Fam otilio/Relatives. Joselyn Barajas is a 44 year old gentleman who lives in a single story house with 3 steps to enter. He came into the hospital with left side weakness and aphasia. Patient went to sleep and woke up unable to move his left side effectively. He woke up his sister who lives in the house with him and she significant elevated blood pressure. Patient has not been taking his blood pressure medication. Patient has been admitted at [facility] and tends to have very high BP with diastolic greater than 100s, routinely. He is now medically stable but in need of 24 hour nursing, doctor supervision and oversight while receiving active and ongoing participate in 3 hours of therapy a day/15 hours per week and receive care with intensive interdisciplinary approach. MEDICATION ALLERGIES: acetaminophen hydrocodone ENVIRONMENTAL ALLERGIES: - Substance Allergies None Known - Other Allergies None Known PAST MEDICAL HISTORY: Appendectomy Cholecystectomy Uncontrolled HTN gout FAMILY HISTORY: Family history is not contributory. REVIEW OF SYSTEMS: - Gen No Chills Fatigue No Fever - Eyes No Double Vision No itchiness - ENMT No Difficulty Swallowing - CVS No Chest Discomfort No Chest Pain Fatigue No Weight Gain - Resp No Cough No Shortness of Breath - GI Continent No Abdominal Pain No Constipation No Diarrhea - Continent No Kidney Pain No Painful Urination No Urinary Urgency - MSK No Joint Pain Muscle Cramps Stiffness - Skin No Itching No Rash No Suspicious Lesions - Neuro Coordination Difficulty Difficulty with Concentration No Memory Loss No Seizures Weakness - Psych No Anxiety No Depression No HIV Exposure No Persistent Infections No Seasonal Allergies - Endo No Cold/Heat Intolerance No Excessive Hunger No Excessive Thirst No Excessive Urination PHYSICAL EXAM - Gen Alert and awake Sitting edge of bed In distress secondary to pain Oriented to: person, time, and place - Skin No skin breakdown. Normacephalic - Eyes No abnormalities - ENMT No abnormalities - Neck No abnormalities - CVS RRR - Chest No abnormalities - Resp Clear to auscultation - Abd Soft - GI Non distended Deferred - No abnormalities - Ext Mild left upper extremity edema. - MSK 1-2/5 weakness in left upper and 4/5 weakness in left lower extremity. - Neuro 1-2/5 weakness in left upper and 4/5 weakness in left lower extremity. - Psych No abnormalities VITAL SIGNS Temperature: 98.2 F SBP/DBP: 158/90 Pulse: 84 Resp: 14 NURSING: - Shower allowing shower - Bladder care per protocol - Skin care per protocol PRECAUTIONS: - Weight Bearing Precaution WBAT left LE ACTIVITIES OOB only with supervision QI SCORES: - Self-Care A. Eating 06-Independent B. Oral hygiene 06-Independent C. Toileting hygiene 06-Independent E. Shower/bathe self 04-Supervision or touching assistance F. Upper body dressing 04-Supervision or touching assistance G. Lower body dressing 03-Partial/moderate assistance H. Putting on/taking off footwear 04-Supervision or touching assistance - Mobility A. Roll left and right 04-Supervision or touching assistance B. Sit to lying 04-Supervision or touching assistance C. Lying to sitting on side of bed 04-Supervision or touching assistance D. Sit to stand 04-Supervision or touching assistance E. Chair/obq-pc-dledb transfer 04-Supervision or touching assistance F. Toilet transfer 04-Supervision or touching assistance G. Car transfer 88-Not attempted due to medical condition or safety concerns I. Walk 10 feet 04-Supervision or touching assistance J. Walk 50 feet with two turns 04-Supervision or touching assistance K. Walk 150 feet 04-Supervision or touching assistance L. Walking 10 feet on uneven surfaces 88-Not attempted due to medical condition or safety concerns M. 1 step (curb) 88-Not attempted due to medical condition or safety concerns N. 4 steps 88-Not attempted due to medical condition or safety concerns O. 12 steps 88-Not attempted due to medical condition or safety concerns P. Picking up object 04-Supervision or touching assistance R. Wheel 50 feet with two turns 88-Not attempted due to medical condition or safety concerns S. Wheel 150 feet 88-Not attempted due to medical condition or safety concerns - Bladder and Bowel Bladder continence 0-Always continent Bowel continence 0-Always continent - Endurance Fair - Balance Fair - Safety Awareness Fair CURRENT FUNC. DEFICITS: Mobility, Endurance, Balance, Safety Awareness, and Self-Care MEDICATIONS: - Other See attached MAR (Medication Administration Record) ASSESSMENT: Pt. is a 44 yo Right-handed male.On 03/01/2019 Pt. presented to [facility] with sudden onset of left-side weakness.On 03/01/2019 he was admitted to [facility] with jessica gnosis right basal ganglia infarct.His impairment category is Stroke 01 - Left Body (Right Brain) (0 1.1).Pre-morbidly, Pt. was independent/mod-I in Balance, Safety Awareness, Self-Care, Locomotion, Tra nsfers Control, Sphincter Control, Communication, Endurance, and Social Cognition; and he had good Lo comotion, Safety Awareness, Balance, Social Cognition, Transfers Control, Sphincter Control, Self-Car e, Communication, and Endurance.Currently, he has deficits of Balance, Locomotion, Safety Awareness, Transfers Control, and Endurance.Pt. is now referred to [facility] for acute i n-patient rehabilitation in order to maximize patient's functional independence in activities of keshia y living, strength, ROM, and mobility.- Rehab Goal Patient has realistic goal of being discharged at assistance level 6-Sangita to reside at Home with Fam otilio/Relatives. Joselyn Barajas is a 44 year old gentleman who lives in a single story house with 3 steps to enter. He came into the hospital with left side weakness and aphasia. Patient went to sleep and woke up unable to move his left side effectively. He woke up his sister who lives in the house with him and she significant elevated blood pressure. Patient has not been taking his blood pressure medication. Patient has been admitted at [facility] and tends to have very high BP with diastolic greater than 100s, routinely. He is now medically stable but in need of 24 hour nursing, doctor supervision and oversight while receiving active and ongoing participate in 3 hours of therapy a day/15 hours per week and receive care with intensive interdisciplinary approach.REHAB PLAN: for Dementia, TBI, Stroke, or others - Physical Therapy Gait dysfunction - to improve, our physical therapists will perform initial evaluation of pt's status upon admission and devise an individualized program for Gait Training, and Wheel Chair mobility Inability to transfer - to improve, our physical therapists will perform initial evaluation of pt's s tatus upon admission and devise an individualized program for Bed mobility Need for home safety evaluation - to improve, our physical therapists will perform initial evaluation of pt's status upon admission and devise an individualized program for Home Evaluation Need in caregiver upon discharge - to improve, our physical therapists will perform initial evaluatio n of pt's status upon admission and devise an individualized program for Caregiver Training New precaution - to improve, our physical therapists will perform initial evaluation of pt's status u sherrie admission and devise an individualized program for Patient precaution education Edema - to improve, our physical therapists will perform initial evaluation of pt's status upon admi ssion and devise an individualized program for Elevation Training, and Lymphedema Therapy Poor balance - to improve, our physical therapists will perform initial evaluation of pt's status upo n admission and devise an individualized program for Balance Training Poor endurance - to improve, our physical therapists will perform initial evaluation of pt's status u sherrie admission and devise an individualized program for Endurance Training Weakness - to improve, our physical therapists will perform initial evaluation of pt's status upon ad mission and devise an individualized program for Aquatic Therapy, Neuromuscular Reeducation, and Stre ngthening Achieving independence - to improve, our physical therapists will perform initial evaluation of pt's status upon admission and devise an individualized program for Community Reintegration Activities - Occupational Therapy Need for child care associate teacher - to improve, our occupation therapists will perform initial evaluation of pt's s tatus upon admission and devise an individualized program for Caregiver Training Weakness - to improve, our occupation therapists will perform initial evaluation of pt's status upon admission and devise an individualized program for Aquatic Therapy, Balance, Endurance, UE ROM, and U E strengthening MEDICAL PLAN: - Diet Type Start Regular - Diet - Liquid Texture Start Regular - Tube Feed Start N/A - Bladder care per protocol - Weight Bearing Precaution WBAT left LE - Skin care per protocol - Other See attached MAR (Medication Administration Record) - Diet - Solid Texture Regular - Shower shower DISCHARGE PLAN: - Estimated Length of Stay (days) 17. - Consensus on plan Discharge plan has been discussed with primary caregiver. Patient/Family is in agreement with the tiff n. Primary caregiver is in agreement with the plan. - Patient/Family Goals Return home with assistance. - Planned Living Setting Upon Discharge Home, to live with Family/Relatives. Home. SIGNATURE PANEL: (RECRUITMENT INTERNSHIP)
--- NOTE | 2019-03-06 22:08 | PAPE ---
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 Ervin Olivas M.D. ADMISSION DIAGNOSIS: right basal ganglia infarct ONSET DATE 03/01/2019 SECONDARY/COMORBID DIAGNOSES TIERED: - N/A Uncontrolled HTN gout Appendectomy Cholecystectomy POST-ADMISSION FUNCTIONAL/MEDICAL STATUS: - Bladder Same accident frequency: Ind - No accidents in the past 7 days - Bowel Same accident frequency: Ind - No accidents in the past 7 days - Walking Same score based on distance walked: 3(>=150ft) - Wheelchair Same score based on distance traveled: 0(N/A) STATUS CHANGE EVALUATION: No change in Functional or Medical Status is identified compared with Pre-Admission screening. PATIENT NEEDS CLOSE MEDICAL SUPERVISION BY A REHABILITATION PHYSICIAN FOR: Coordination of Treatment Team Medical and Co-Morbidity Management PATIENT REQUIRES 24X7 REHAB NURSING FOR MEDICAL AND FUNCTIONAL MGT. OF THE FOLLOWING DEFICITS: Disease Management Medication Management Patient/Family Education Providing Safe Environment PATIENT REQUIRES INTENSIVE, COORDINATED INTERDISCIPLINARY APPROACH TO REHAB: Arranging Home Equipment/Services Discharge Planning Family Intervention/Training Diving Fisher/Case Management LIST OF IDENTIFIED AND POTENTIAL PROBLEMS: Alteration in leisure activities Bladder, Incontinence Bowel, Incontinence Infection, Actual or Potential Mobility Impaired Pain, Alteration in Comfort Self Care Deficit Skin Integrity, Actual or Potential Urinary Tract Infection (UTI), Actual or Potential PATIENT COULD BE AT RISK FOR COMPLICATIONS FROM ADVERSE MEDICAL CONDITIONS DUE TO HIS/HER COMORBIDITI ES AND THE RIGORS OF THE INTENSIVE REHABILLITATION PROGRAM. METHODS OR INTERVENTIONS TO AVOID COMPLIC ATIONS INCLUDE: - Bleeding Stroke patients assessed for lethargy or change in status. - Infection Clinical staff to assess and manage the signs and symptoms of infection including fever, redness, war mth, etc. - Urinary Tract Infection - Aspiration Clinical staff will assess and manage coughing, drooling, congestion. - Falls Patient will be evaluated for Fall Precautions and will be placed on Fall Precautions as indicated pe r protocol. - Skin Breakdown Nursing will assess skin daily using assessment tool and will place on Skin Breakdown Precautions as indicated per protocol. - Pain Clinical staff may employ non-medication methods such as massage, distraction, decrease stimulus, etc . as needed. Clinical staff will assess patient's pain level every shift per protocol to assess and e nsure pain management effectiveness. Medications will be given and the pain level re-assessed. PRELIMINARY PLAN OF CARE: - Physical Therapy Patient needs Physical Therapy for a daily minimum of 1.5 hours at least 5 out of 7 days, to improve: Mobility, Strengthening, Transfers, Stretching, ROM, Endurance, Ability to manage stairs, Gait, and Balance. - Speech Therapy Patient needs Speech Therapy for a daily minimum of 0.5 hours at least 5 out of 7 days, to improve: S wallowing, Cognition, Language Skills, and Compensatory Strategies. - Rehabilitation Nursing Patient requires 24x7 Rehabilitation Nursing for: Pain Issues, Identifying and preventing risk factor s, Monitoring and reporting current medical conditions, Assisting with ambulation and transfer, Fran ting with all ADL-s, Teaching patients about disease process and medications, Family teaching, Provid ing safe environment, Bowel and Bladder Issues, Skin Integrity, and Medication Management. Patient needs Diving Fisher and/or Case Management for: Discharge Planning, Arranging Home Equipmen t or Services, and Family Interventions. - Dietary and Nutrition Services Patient needs Dietary and Nutrition Services for: Adequate Nutrition, Nutritional Supplements, and Nu tritional Education. - Occupational Therapy Patient needs Occupational Therapy for a daily minimum of 1.5 hours at least 5 out of 7 days, to impr ove Activities of Daily Living, including: Eating, Grooming, Bathing, Dressing, Toileting, Toilet Tra nsfers, Community Reintegration, Higher functional activities, Adaptive Equipment, Splinting, Househo ld Tasks, and Other activities as determined. QI SCORES: - Self-Care A. Eating 06-Independent B. Oral hygiene 06-Independent C. Toileting hygiene 06-Independent E. Shower/bathe self 04-Supervision or touching assistance F. Upper body dressing 04-Supervision or touching assistance G. Lower body dressing 03-Partial/moderate assistance H. Putting on/taking off footwear 04-Supervision or touching assistance - Mobility A. Roll left and right 04-Supervision or touching assistance B. Sit to lying 04-Supervision or touching assistance C. Lying to sitting on side of bed 04-Supervision or touching assistance D. Sit to stand 04-Supervision or touching assistance E. Chair/fui-sm-oglis transfer 04-Supervision or touching assistance F. Toilet transfer 04-Supervision or touching assistance G. Car transfer 88-Not attempted due to medical condition or safety concerns I. Walk 10 feet 04-Supervision or touching assistance J. Walk 50 feet with two turns 04-Supervision or touching assistance K. Walk 150 feet 04-Supervision or touching assistance L. Walking 10 feet on uneven surfaces 88-Not attempted due to medical condition or safety concerns M. 1 step (curb) 88-Not attempted due to medical condition or safety concerns N. 4 steps 88-Not attempted due to medical condition or safety concerns O. 12 steps 88-Not attempted due to medical condition or safety concerns P. Picking up object 04-Supervision or touching assistance R. Wheel 50 feet with two turns 88-Not attempted due to medical condition or safety concerns S. Wheel 150 feet 88-Not attempted due to medical condition or safety concerns - Bladder and Bowel Bladder continence 0-Always continent Bowel continence 0-Always continent - Endurance Fair - Balance Fair - Safety Awareness Fair POTENTIAL FUNCTIONAL GOALS FOR PATIENT TO ACHIEVE BY DISCHARGE: - Safety Precaution Patient will remain free from falls or injury at time of discharge. - Bed Mobility Patient will perform bed mobility at 4-Jack level of assistance. - Transfers Patient will complete transfers from bed to chair at 4-Jack level of assistance. - Mobility Patient will ambulate 150 ft with 4-Jack level of assistance with RW. PATIENT REHAB POTENTIAL Velia BARAJAS is able and expected to receive 3 hours of individualized therapy daily on at least 5 of ev steffi 7 days Velia BARAJAS's prognosis for significant practical improvement within a reasonable period of time appear s Good Expected level of measurable improvement will be of a practical value to Velia BARAJAS's functional capac ity or adaptations to impairments Has a viable Discharge Plan Medically appropriate; condition is sufficiently stable to participate in intensive rehab program DISCHARGE PLAN: - Estimated Length of Stay (days) 17. - Consensus on plan Discharge plan has been discussed with primary caregiver. Patient/Family is in agreement with the tiff n. Primary caregiver is in agreement with the plan. - Patient/Family Goals Return home with assistance. - Planned Living Setting Upon Discharge Home, to live with Family/Relatives. Home. CONCLUSION ON REHABILITATION NECESSITY: I have evaluated patient's pre-admission functional status and, comparing it to the patient's post-ad mission functional status now, I conclude that the pre-admission assessment was accurate. Patient's c ondition on admission supports the medical necessity of admission to IRF. It is safe to proceed with patient's therapy program. 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
--- NOTE | 2019-03-07 02:07 | FAST ---
SHIFT START DATE/TIME: 03/06/2019 19:00 (MEDICAL RECORDS ASSISTANT) SHIFT END DATE/TIME: 03/07/2019 07:00 (MEDICAL RECORDS ASSISTANT) NAME AARON BARAJAS DATE OF : 1975 DATE OF ADMISSION: 03/05/2019 16:44 (MEDICAL RECORDS ASSISTANT) PHONE: AGE: 44 N# [id number] GENDER: Male ENCOUNTER PHYSICIAN: Dr. Ervin Olivas M.D. ADMISSION DIAGNOSIS: - Stroke 01 - Left Body (Right Brain) (01.1) right basal ganglia infarct. EATING: Not assessed/no information CODE: - ORAL HYGIENE: Not assessed/no information CODE: - TOILETING HYGIENE: TOILETING HYGIENE - STEP 1: Does the patient complete the activity by him/herself with no assistance (physical, verbal/nonverbal cueing, setup/clean-up)? No. TOILETING HYGIENE - STEP 2: Does the patient need only setup/clean-up assistance from one helper? Yes. 1. [id number] ADMISSION PERFORMANCE: Setup or clean-up assistance CODE: 05 BATHING: Not assessed/no information CODE: - DRESSING - UPPER BODY: Not assessed/no information CODE: - DRESSING - LOWER BODY: Not assessed/no information CODE: - PUTTING ON/TAKING OFF FOOTWEAR: Not assessed/no information CODE: - ROLL LEFT AND RIGHT: ROLL LEFT AND RIGHT - STEP 1: Does the patient complete the activity by him/herself with no assistance (physical, verbal/nonverbal cueing, setup/clean-up)? No. ROLL LEFT AND RIGHT - STEP 2: Does the patient need only setup/clean-up assistance from one helper? Yes. 1. [id number] ADMISSION PERFORMANCE: Setup or clean-up assistance CODE: 05 SIT TO LYING: SIT TO LYING - STEP 1: Does the patient complete the activity by him/herself with no assistance (physical, verbal/nonverbal cueing, setup/clean-up)? No. SIT TO LYING - STEP 2: Does the patient need only setup/clean-up assistance from one helper? Yes. 1. [id number] ADMISSION PERFORMANCE: Setup or clean-up assistance CODE: 05 LYING TO SITTING: LYING TO SITTING ON SIDE OF BED - STEP 1: Does the patient complete the activity by him/herself with no assistance (physical, verbal/nonverbal cueing, setup/clean-up)? No. LYING TO SITTING ON SIDE OF BED - STEP 2: Does the patient need only setup/clean-up assistance from one helper? Yes. 1. [id number] ADMISSION PERFORMANCE: Setup or clean-up assistance CODE: 05 SIT TO STAND: SIT TO STAND - STEP 1: Does the patient complete the activity by him/herself with no assistance (physical, verbal/nonverbal cueing, setup/clean-up)? No. SIT TO STAND - STEP 2: Does the patient need only setup/clean-up assistance from one helper? Yes. 1. [id number] ADMISSION PERFORMANCE: Setup or clean-up assistance CODE: 05 TRANSFERS: BED, CHAIR: CHAIR/[id number] TRANSFER - STEP 1: Does the patient complete the activity by him/herself with no assistance (physical, verbal/nonverbal cueing, setup/clean-up)? No. CHAIR/[id number] TRANSFER - STEP 2: Does the patient need only setup/clean-up assistance from one helper? Yes. 1. [id number] ADMISSION PERFORMANCE: Setup or clean-up assistance CODE: 05 TRANSFER TOILET: TOILET TRANSFER - STEP 1: Does the patient complete the activity by him/herself with no assistance (physical, verbal/nonverbal cueing, setup/clean-up)? No. TOILET TRANSFER - STEP 2: Does the patient need only setup/clean-up assistance from one helper? Yes. 1. [id number] ADMISSION PERFORMANCE: Setup or clean-up assistance CODE: 05 TRANSFERS: CAR: Not assessed/no information CODE: - WALK 10 FEET: Not assessed/no information CODE: - 1 STEP (CURB): Not assessed/no information CODE: - PICKING UP OBJECT: Not assessed/no information CODE: - DOES THE PATIENT USE A WHEELCHAIR/SCOOTER? CODE: EXPR WHEEL 50 FEET WITH TWO TURNS: Not assessed/no information CODE: - INDICATE THE TYPE OF WHEELCHAIR/SCOOTER USED: CODE: EXPR WHEEL 150 FEET: Not assessed/no information CODE: - INDICATE THE TYPE OF WHEELCHAIR/SCOOTER USED: CODE: EXPR BLADDER AND BOWEL: H350. BLADDER CONTINENCE (3-DAY ASSESSMENT PERIOD): Always continent (no documented incontinence) CODE: 0 H400. BOWEL CONTINENCE (3-DAY ASSESSMENT PERIOD): Always continent CODE: 0
[2019-03-07] MEDS: INSULIN -REGULAR HUMAN 50 UNIT/0.5 ML ML SQ SCH ×4 (07:30→19:36)
[2019-03-07] MEDS: ENOXAPARIN 40 MG/0.4 ML SQ SCH (07:43)
[2019-03-07] MEDS: METOPROLOL TAR 50 MG TAB PO SCH ×2 (08:33→19:03)
[2019-03-07] MEDS: allopurinoL 100 MG TAB PO SCH (08:34)
[2019-03-07] MEDS: lisinopriL 5 MG TAB PO SCH ×2 (08:34→19:03)
[2019-03-07] MEDS: ASPIRIN EC 81 MG TAB PO SCH (08:35)
[2019-03-07] MEDS: CLOPIDOGREL 75 MG TABLET PO SCH (08:35)
[2019-03-07] MEDS: PROMOD 30 ML DOSE PO SCH ×2 (08:36→19:05)
[2019-03-07] MEDS: HYDRALAZINE HCL 10 MG TABLET PO PRN (16:38)
--- NOTE | 2019-03-07 16:48 | FAST ---
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 Ervin Olivas M.D. ADMISSION DIAGNOSIS: - Stroke 01 - Left Body (Right Brain) (01.1) right basal ganglia infarct. EATING: Not assessed/no information CODE: - ORAL HYGIENE: Not assessed/no information CODE: - TOILETING HYGIENE: Not assessed/no information CODE: - BATHING: Not assessed/no information CODE: - DRESSING - UPPER BODY: DRESSING - UPPER BODY - STEP 1: Does the patient complete the activity by him/herself with no assistance (physical, verbal/nonverbal cueing, setup/clean-up)? No. DRESSING - UPPER BODY - STEP 2: Does the patient need only setup/clean-up assistance from one helper? No. DRESSING - UPPER BODY - STEP 3: Does the patient need only verbal/nonverbal cueing or touching/steadying/contact guard assistance fro m one helper? Yes. 1. [id number] ADMISSION PERFORMANCE: Supervision or touching assistance CODE: 04 DRESSING - LOWER BODY: Not assessed/no information CODE: - PUTTING ON/TAKING OFF FOOTWEAR: Not assessed/no information CODE: - DOES THE PATIENT USE A WHEELCHAIR/SCOOTER? CODE: EXPR INDICATE THE TYPE OF WHEELCHAIR/SCOOTER USED: CODE: EXPR INDICATE THE TYPE OF WHEELCHAIR/SCOOTER USED: CODE: EXPR BLADDER AND BOWEL: CODE: EXPR CODE: EXPR SIGNATURE PANEL: The following modified sections: 1. [id number] Admission Performance were [electronically] signed by All bolivar Sandy OT on Sat Mar 07 2019 16:47:05 GMT-0600 (Central Standard Time)
--- NOTE | 2019-03-07 17:08 | PN ---
Date of Progress Note: 03/07/2019 Subjective: Patient is seen and examined. Chart reviewed and case discussed with RN. Patient's blo od pressure now better after adding clonidine. Medications: List reviewed. Physical Examination: Vital Signs: Temperature 97.4, heart rate 78, blood pressure 168/98, respirations 16, O2 of 97% on r oom air. General: Awake, alert, oriented x3, not in any acute distress. CV: S1, S2. Regular rate and rhythm. Respiratory: Moving air well bilaterally. No wheezing or stridor. Gastrointestinal: Abdomen is soft, nontender, nondistended. Positive bowel sounds. Extremities: No clubbing or cyanosis. Left upper extremity edema. Neuro: Left upper extremity weakness. Laboratory Data: Blood glucose level 260. Assessment And Plan: 1.Acute cerebrovascular accident, right basal ganglia. We will continue with aspirin and statin. C ontinue with PT. 2.Hypertriglyceridemia. Continue statin. 3.Fever. Patient has now been afebrile greater than 24 hours. We will discontinue IV antibiotics. Appreciate Dr. Fitzgerald's input. Cultures did not show any growth to date. 4.Hypertensive emergency. Blood pressure still spiking up in the 200s, improved with clonidine. Hy dralazine dose adjusted. May need to place on clonidine patch. 5.Chronic kidney disease, stage 3. 6.Diabetes mellitus type 2 with hyperglycemia. We will switch over to moderate sliding scale. Tova tor blood glucose levels. 7.Obesity, BMI 36. 8.Left wrist pain, stable. 9.Arthritis. 10.Gout. Continue allopurinol. SA/MODL Voice ID: [id number] Report ID: [id number]
[2019-03-07] MEDS: FENOFIBRATE 48 MG TAB PO SCH (19:04)
[2019-03-07] MEDS: ATORVASTATIN 40 MG TAB PO SCH (19:04)
[2019-03-08 06:32] LABS: Potassium 3.9 mmol/L (3.5-5.1)
[2019-03-08] MEDS: ENOXAPARIN 40 MG/0.4 ML SQ SCH (06:41)
[2019-03-08] MEDS: INSULIN -REGULAR HUMAN 50 UNIT/0.5 ML ML SQ SCH ×4 (07:09→19:36)
[2019-03-08] MEDS: allopurinoL 100 MG TAB PO SCH (08:32)
[2019-03-08] MEDS: lisinopriL 5 MG TAB PO SCH ×2 (08:32→19:36)
[2019-03-08] MEDS: ASPIRIN EC 81 MG TAB PO SCH (08:32)
[2019-03-08] MEDS: CLOPIDOGREL 75 MG TABLET PO SCH (08:32)
[2019-03-08] MEDS: METOPROLOL TAR 50 MG TAB PO SCH ×2 (08:34→19:36)
[2019-03-08] MEDS: PROMOD 30 ML DOSE PO SCH ×2 (08:36→19:37)
--- NOTE | 2019-03-08 17:05 | PN ---
Date of Progress Note: 03/08/2019 Subjective: Patient seen and examined. Chart reviewed and case discussed with RN. Patient is doing significantly better. He is participating in rehab. Swelling of his arm has gone down. Medications: List reviewed. Physical Examination: Vital Signs: Temperature 97.5, heart rate 80, blood pressure 153/90, respirations 18, O2 saturation 98% on room air. General: Awake, alert, oriented x3, obese male. CV: S1, S2. Respiratory: Moving air well bilaterally. Abdomen: Soft, nontender, nondistended. Positive bowel sounds. Extremities: No clubbing, cyanosis. Left upper extremity swelling. Neurologic: Patient has left upper extremity weakness. Laboratory Data: Sodium 138, potassium 3.9, chloride 104, CO2 of 26, BUN 27, creatinine 1.86, glucos e of 124, calcium 8.8. Assessment And Plan: A 44-year-old male with: 1.Acute cerebrovascular accident, right basal ganglia. Continue with aspirin and statin. 2.Hypertriglyceridemia. Continue statin. 3.Fever. Afebrile for over 48 hours. IV antibiotics discontinued. Cultures studies from recent ad mission did not show any growth. 4.Hypertensive emergency. Blood pressure was still not well controlled, still in the 180s to 190s. Hydralazine dose was adjusted. Clonidine given, now in the 150s. We will continue to monitor. 5.Chronic kidney disease stage 3. 6.Diabetes mellitus type 2 with hyperglycemia. We will continue with sliding scale insulin and franko tor blood glucose levels. 7.Obesity, BMI of 36. 8.Left wrist pain, stable. Continue with splint when not having PT. 9.Generalized arthritis. Patient needs further workup to rule out rheumatoid arthritis. 10.Gout. Continue allopurinol. 11.Deep vein thrombosis prophylaxis, addressed. Continue with Lovenox. SA/MODL Voice ID: [id number] Report ID: [id number]
[2019-03-08] MEDS: ATORVASTATIN 40 MG TAB PO SCH (19:37)
[2019-03-08] MEDS: FENOFIBRATE 48 MG TAB PO SCH (19:37)
[2019-03-08] MEDS: TRAMADOL HCL 50 MG TAB PO PRN (19:39)
[2019-03-08] MEDS: HYDRALAZINE HCL 10 MG TABLET PO PRN (21:29)
[2019-03-09] MEDS: ENOXAPARIN 40 MG/0.4 ML SQ SCH (07:05)
[2019-03-09] MEDS: INSULIN -REGULAR HUMAN 50 UNIT/0.5 ML ML SQ SCH ×5 (07:08→18:53)
[2019-03-09] MEDS: CLOPIDOGREL 75 MG TABLET PO SCH (08:32)
[2019-03-09] MEDS: allopurinoL 100 MG TAB PO SCH (08:32)
[2019-03-09] MEDS: METOPROLOL TAR 50 MG TAB PO SCH ×2 (08:32→18:51)
[2019-03-09] MEDS: lisinopriL 5 MG TAB PO SCH ×2 (08:32→18:52)
[2019-03-09] MEDS: ASPIRIN EC 81 MG TAB PO SCH (08:33)
[2019-03-09] MEDS: PROMOD 30 ML DOSE PO SCH ×2 (08:34→18:52)
[2019-03-09 10:54] LABS: Absolute Lymphocytes (CBC) 1.1 K/uL (0.7-4.9); Basophils % 0.8 % (0-1.3); Hematocrit 36.3 % (39.6-49.0); Lymphocytes % 10.3 % (15.3-44.8); RBC Red Blood Cell Count 4.33 M/uL (4.33-5.43)
[2019-03-09 11:09] LABS: Albumin 3.4 g/dL (3.4-5.0); Bilirubin Total 1.7 mg/dL (0.2-1.0); Potassium 4.3 mmol/L (3.5-5.1); Protein, Total 8.9 g/dL (6.4-8.2)
--- NOTE | 2019-03-09 13:51 | FAST ---
SHIFT START DATE/TIME: 03/09/2019 07:00 (COMMERCIAL LEASE ADMINISTRATOR) SHIFT END DATE/TIME: 03/09/2019 19:00 (COMMERCIAL LEASE ADMINISTRATOR) NAME AARON BARAJAS DATE OF : 1975 DATE OF ADMISSION: 03/05/2019 16:44 (COMMERCIAL LEASE ADMINISTRATOR) PHONE: AGE: 44 N# [id number] GENDER: Male ENCOUNTER PHYSICIAN: Dr. Ervin Olivas M.D. ADMISSION DIAGNOSIS: - Stroke 01 - Left Body (Right Brain) (01.1) right basal ganglia infarct. EATING: EATING - STEP 1: Does the patient complete the activity by him/herself with no assistance (physical, verbal/nonverbal cueing, setup/clean-up)? Yes. 1. [id number] ADMISSION PERFORMANCE: Independent CODE: 06 ORAL HYGIENE: ORAL HYGIENE - STEP 1: Does the patient complete the activity by him/herself with no assistance (physical, verbal/nonverbal cueing, setup/clean-up)? Yes. 1. [id number] ADMISSION PERFORMANCE: Independent CODE: 06 TOILETING HYGIENE: TOILETING HYGIENE - STEP 1: Does the patient complete the activity by him/herself with no assistance (physical, verbal/nonverbal cueing, setup/clean-up)? Yes. 1. [id number] ADMISSION PERFORMANCE: Independent CODE: 06 BATHING: Not assessed/no information CODE: - DRESSING - UPPER BODY: DRESSING - UPPER BODY - STEP 1: Does the patient complete the activity by him/herself with no assistance (physical, verbal/nonverbal cueing, setup/clean-up)? No. DRESSING - UPPER BODY - STEP 2: Does the patient need only setup/clean-up assistance from one helper? No. DRESSING - UPPER BODY - STEP 3: Does the patient need only verbal/nonverbal cueing or touching/steadying/contact guard assistance fro m one helper? Yes. 1. [id number] ADMISSION PERFORMANCE: Supervision or touching assistance CODE: 04 DRESSING - LOWER BODY: DRESSING - LOWER BODY - STEP 1: Does the patient complete the activity by him/herself with no assistance (physical, verbal/nonverbal cueing, setup/clean-up)? No. DRESSING - LOWER BODY - STEP 2: Does the patient need only setup/clean-up assistance from one helper? No. DRESSING - LOWER BODY - STEP 3: Does the patient need only verbal/nonverbal cueing or touching/steadying/contact guard assistance fro m one helper? Yes. 1. [id number] ADMISSION PERFORMANCE: Supervision or touching assistance CODE: 04 PUTTING ON/TAKING OFF FOOTWEAR: FOOTWEAR - STEP 1: Does the patient complete the activity by him/herself with no assistance (physical, verbal/nonverbal cueing, setup/clean-up)? No. FOOTWEAR - STEP 2: Does the patient need only setup/clean-up assistance from one helper? No. FOOTWEAR - STEP 3: Does the patient need only verbal/nonverbal cueing or touching/steadying/contact guard assistance fro m one helper? Yes. 1. [id number] ADMISSION PERFORMANCE: Supervision or touching assistance CODE: 04 ROLL LEFT AND RIGHT: ROLL LEFT AND RIGHT - STEP 1: Does the patient complete the activity by him/herself with no assistance (physical, verbal/nonverbal cueing, setup/clean-up)? No. ROLL LEFT AND RIGHT - STEP 2: Does the patient need only setup/clean-up assistance from one helper? Yes. 1. [id number] ADMISSION PERFORMANCE: Setup or clean-up assistance CODE: 05 SIT TO LYING: SIT TO LYING - STEP 1: Does the patient complete the activity by him/herself with no assistance (physical, verbal/nonverbal cueing, setup/clean-up)? No. SIT TO LYING - STEP 2: Does the patient need only setup/clean-up assistance from one helper? Yes. 1. [id number] ADMISSION PERFORMANCE: Setup or clean-up assistance CODE: 05 LYING TO SITTING: LYING TO SITTING ON SIDE OF BED - STEP 1: Does the patient complete the activity by him/herself with no assistance (physical, verbal/nonverbal cueing, setup/clean-up)? No. LYING TO SITTING ON SIDE OF BED - STEP 2: Does the patient need only setup/clean-up assistance from one helper? Yes. 1. [id number] ADMISSION PERFORMANCE: Setup or clean-up assistance CODE: 05 SIT TO STAND: SIT TO STAND - STEP 1: Does the patient complete the activity by him/herself with no assistance (physical, verbal/nonverbal cueing, setup/clean-up)? No. SIT TO STAND - STEP 2: Does the patient need only setup/clean-up assistance from one helper? Yes. 1. [id number] ADMISSION PERFORMANCE: Setup or clean-up assistance CODE: 05 TRANSFERS: BED, CHAIR: CHAIR/[id number] TRANSFER - STEP 1: Does the patient complete the activity by him/herself with no assistance (physical, verbal/nonverbal cueing, setup/clean-up)? No. CHAIR/[id number] TRANSFER - STEP 2: Does the patient need only setup/clean-up assistance from one helper? Yes. 1. [id number] ADMISSION PERFORMANCE: Setup or clean-up assistance CODE: 05 TRANSFER TOILET: TOILET TRANSFER - STEP 1: Does the patient complete the activity by him/herself with no assistance (physical, verbal/nonverbal cueing, setup/clean-up)? No. TOILET TRANSFER - STEP 2: Does the patient need only setup/clean-up assistance from one helper? Yes. 1. [id number] ADMISSION PERFORMANCE: Setup or clean-up assistance CODE: 05 TRANSFERS: CAR: Not assessed/no information CODE: - WALK 10 FEET: WALK 10 FEET - STEP 1: Does the patient complete the activity by him/herself with no assistance (physical, verbal/nonverbal cueing, setup/clean-up)? No. WALK 10 FEET - STEP 2: Does the patient need only setup/clean-up assistance from one helper? Yes. 1. [id number] ADMISSION PERFORMANCE: Setup or clean-up assistance CODE: 05 WALK 50 FEET: WALK 50 FEET - STEP 1: Does the patient complete the activity by him/herself with no assistance (physical, verbal/nonverbal cueing, setup/clean-up)? No. WALK 50 FEET - STEP 2: Does the patient need only setup/clean-up assistance from one helper? Yes. 1. [id number] ADMISSION PERFORMANCE: Setup or clean-up assistance CODE: 05 WALK 150 FEET: Not assessed/no information CODE: - WALK 10 FEET UNEVEN: Not assessed/no information CODE: - 1 STEP (CURB): Not assessed/no information CODE: - PICKING UP OBJECT: Not assessed/no information CODE: - DOES THE PATIENT USE A WHEELCHAIR/SCOOTER? Q1. DOES THE PATIENT USE A WHEELCHAIR/SCOOTER?: No CODE: 0 INDICATE THE TYPE OF WHEELCHAIR/SCOOTER USED: CODE: EXPR INDICATE THE TYPE OF WHEELCHAIR/SCOOTER USED: CODE: EXPR BLADDER AND BOWEL: H350. BLADDER CONTINENCE (3-DAY ASSESSMENT PERIOD): Always continent (no documented incontinence) CODE: 0 H400. BOWEL CONTINENCE (3-DAY ASSESSMENT PERIOD): Always continent CODE: 0 SIGNATURE PANEL: The following modified sections: 1. [id number] Admission Performance, 1. [id number] Admission Performance, 1. [id number] Admission Performance, 1. BC2673c Admission Performance, 1. [id number] Admission Performance, 1. [id number] Admission Performance, 1. [id number] Admission Performance, 1. [id number] Admission Performance , 1. [id number] Admission Performance, 1. [id number] Admission Performance, 1. [id number] Admission Performanc e, 1. [id number] Admission Performance, 1. [id number] Admission Performance, 1. [id number] Admission Performan ce, Q1. Does the patient use a wheelchair/scooter?, Q1. Does the patient use a wheelchair/scooter?, H 350. Bladder Continence (3-day assessment period), H400. Bowel Continence (3-day assessment period) w ere [electronically] signed by Minnie Carrasco C.N.A. on SatMar 09 2019 13:51:05 GMT-0600 ([place])
--- NOTE | 2019-03-09 14:41 | FAST ---
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 Ervin Olivas M.D. ADMISSION DIAGNOSIS: - Stroke 01 - Left Body (Right Brain) (01.1) right basal ganglia infarct. EATING: Not assessed/no information CODE: - ORAL HYGIENE: ORAL HYGIENE - STEP 1: Does the patient complete the activity by him/herself with no assistance (physical, verbal/nonverbal cueing, setup/clean-up)? No. ORAL HYGIENE - STEP 2: Does the patient need only setup/clean-up assistance from one helper? No. ORAL HYGIENE - STEP 3: Does the patient need only verbal/nonverbal cueing or touching/steadying/contact guard assistance fro m one helper? Yes. 1. [id number] ADMISSION PERFORMANCE: Supervision or touching assistance CODE: 04 TOILETING HYGIENE: Not assessed/no information CODE: - BATHING: SHOWER/BATHE SELF - STEP 1: Does the patient complete the activity by him/herself with no assistance (physical, verbal/nonverbal cueing, setup/clean-up)? No. SHOWER/BATHE SELF - STEP 2: Does the patient need only setup/clean-up assistance from one helper? No. SHOWER/BATHE SELF - STEP 3: Does the patient need only verbal/nonverbal cueing or touching/steadying/contact guard assistance fro m one helper? Yes. 1. [id number] ADMISSION PERFORMANCE: Supervision or touching assistance CODE: 04 DRESSING - UPPER BODY: DRESSING - UPPER BODY - STEP 1: Does the patient complete the activity by him/herself with no assistance (physical, verbal/nonverbal cueing, setup/clean-up)? No. DRESSING - UPPER BODY - STEP 2: Does the patient need only setup/clean-up assistance from one helper? No. DRESSING - UPPER BODY - STEP 3: Does the patient need only verbal/nonverbal cueing or touching/steadying/contact guard assistance fro m one helper? Yes. 1. [id number] ADMISSION PERFORMANCE: Supervision or touching assistance CODE: 04 DRESSING - LOWER BODY: DRESSING - LOWER BODY - STEP 1: Does the patient complete the activity by him/herself with no assistance (physical, verbal/nonverbal cueing, setup/clean-up)? No. DRESSING - LOWER BODY - STEP 2: Does the patient need only setup/clean-up assistance from one helper? No. DRESSING - LOWER BODY - STEP 3: Does the patient need only verbal/nonverbal cueing or touching/steadying/contact guard assistance fro m one helper? Yes. 1. [id number] ADMISSION PERFORMANCE: Supervision or touching assistance CODE: 04 PUTTING ON/TAKING OFF FOOTWEAR: FOOTWEAR - STEP 1: Does the patient complete the activity by him/herself with no assistance (physical, verbal/nonverbal cueing, setup/clean-up)? No. FOOTWEAR - STEP 2: Does the patient need only setup/clean-up assistance from one helper? No. FOOTWEAR - STEP 3: Does the patient need only verbal/nonverbal cueing or touching/steadying/contact guard assistance fro m one helper? Yes. 1. [id number] ADMISSION PERFORMANCE: Supervision or touching assistance CODE: 04 DOES THE PATIENT USE A WHEELCHAIR/SCOOTER? CODE: EXPR INDICATE THE TYPE OF WHEELCHAIR/SCOOTER USED: CODE: EXPR INDICATE THE TYPE OF WHEELCHAIR/SCOOTER USED: CODE: EXPR BLADDER AND BOWEL: CODE: EXPR CODE: EXPR SIGNATURE PANEL: The following modified sections: 1. [id number] Admission Performance, 1. [id number] Admission Performance, 1. [id number] Admission Performance, 1. [id number] Admission Performance, 1. [id number] Admission Performance were [electronically] signed by GWEN Nino on SatMar 09 2019 14:40:45 GMT-0600 (Central Standard Time)
[2019-03-09] MEDS: METFORMIN HCL 500 MG TAB PO SCH (16:41)
--- NOTE | 2019-03-09 16:53 | P.PN ---
Subjective Date of Service: 03/09/19 Subjective: Working w/ PT Patient seen and examined chart reviewed and case discussed with RN. Patient having difficulty sleeping. Also seems to be anxious and somewhat depressed due to his stroke Review of Systems 10-point ROS is otherwise unremarkable Neurological: As per HPI Physical Examination - Vital Signs Temperature: 99.6 F Blood Pressure: 159/97 Pulse: 95 Respirations: 16 Pulse Ox (%): 94 - Physical Exam General: Alert, In no apparent distress, Oriented x3, Obese HEENT: Atraumatic, PERRLA, EOMI Neck: Supple, JVD not distended Respiratory: Clear to auscultation bilaterally, Normal air movement Cardiovascular: Normal pulses, Regular rate/rhythm, Normal S1 S2, Edema (Left upper extremity) Gastrointestinal: Normal bowel sounds, Soft and benign, Non-distended, No tenderness Musculoskeletal: No tenderness Integumentary: No rashes Neurological: Normal speech, Normal tone, Normal affect, Abnormal strength ( Left upper extremity weakness) - Studies Laboratory Data (last 24 hrs) 03/09/19 10:39: Sodium 135 L, Potassium 4.3, BUN 29 H, Creatinine 2.04 H, Glucose 243 H, Total Bilirubin 1.7 H, AST 59 H, ALT 56, Alkaline Phosphatase 320 H 03/09/19 10:39: WBC 10.4 D, Hgb 12.4 L, Hct 36.3 L, Plt Count 310 D Medications List Reviewed: Yes Assessment And Plan - Plan Assessment And Plan: A 44-year-old male with: 1. Acute cerebrovascular accident, right basal ganglia. Continue with aspirin and statin. 2. Hypertriglyceridemia. Continue statin. 3. Fever. Afebrile now. IV antibiotics discontinued. Cultures studies from recent admission did not show any growth. Resolved 4. Hypertensive emergency. Blood pressure now better controlled in the 150 is 160s. Hydralazine dose was adjusted. We will continue to monitor. 5. Chronic kidney disease stage 3. Monitor creatinine level 6. Diabetes mellitus type 2 with hyperglycemia. Adjust to aggressive sliding scale insulin and monitor blood glucose levels. Has been started on metformin. A1c is only 5.7%. 7. Obesity, BMI of 32. 8. Left wrist pain, stable. Continue with splint when not having PT. 9. Generalized arthritis. Patient needs further workup to rule out rheumatoid arthritis. 10. Gout. Continue allopurinol. 11. Adjustment disorder with depressed mood. Started on SSRI 12. Deep vein thrombosis prophylaxis, addressed. Continue with Lovenox.
[2019-03-09] MEDS: FENOFIBRATE 48 MG TAB PO SCH (18:52)
[2019-03-09] MEDS: ATORVASTATIN 40 MG TAB PO SCH (18:52)
[2019-03-09] MEDS: MELATONIN 3 MG TABLET PO SCH (18:53)
[2019-03-09] MEDS ORDERED: DOCUSATE NA/SENNA CONC 1 TAB PO PRN (19:30)
--- NOTE | 2019-03-09 20:14 | R.PN ---
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 SUBJECTIVE: Pt denied any depression. Pt denied any Shortness of Breath. He had a low grade fever. His procalcitonin and lactate were normal. He is doing well with physical, occupational and speech therapy. Blood work shows chronic renal insufficiency and uncontrolled diabet es mellitus. Low dosage metformin 250 mg twice daily, aspirin 81 mg, plavix 75 mg and lipitor 40 mg d aily. Ambulated 750' with standby assistance using a rolling walker. VITAL SIGNS Temperature: 99.6 F SBP/DBP: 136/82 Pulse: 82 Resp: 16 MEDICATION ALLERGIES: acetaminophen hydrocodone ENVIRONMENTAL ALLERGIES: - Substance Allergies None Known - Other Allergies None Known NURSING: - Shower allowing shower - Bladder care per protocol - Skin care per protocol PRECAUTIONS: - Weight Bearing Precaution WBAT left LE ACTIVITIES OOB only with supervision THERAPIES: - Occupational Therapy Cognitive Retraining. Visual Perceptual Training. - Dietary and Nutrition Adequate Nutrition. Nutritional Education. Nutritional Supplements. - Speech Therapy Cognitive Training. Expressive Language Skills. Memory Strategies. Receptive Language Skills. Speech Intelligibility Training. PHYSICAL EXAM - Gen Alert and awake Sitting edge of bed In distress secondary to pain Oriented to: person, time, and place - Skin No skin breakdown. Normacephalic - Eyes No abnormalities - ENMT No abnormalities - Neck No abnormalities - CVS RRR - Chest No abnormalities - Resp Clear to auscultation - Abd Soft - GI Non distended Deferred - No abnormalities - Ext Mild left upper extremity edema. - MSK 1-2/5 weakness in left upper and 4/5 weakness in left lower extremity. - Neuro 1-2/5 weakness in left upper and 4/5 weakness in left lower extremity. - Psych No abnormalities ASSESSMENT: Pt. is a 44 yo Right-handed male.On 03/01/2019 Pt. presented to [facility] with sudden onset of left-side weakness.On 03/01/2019 he was admitted to [facility] with jessica gnosis right basal ganglia infarct.His impairment category is Stroke 01 - Left Body (Right Brain) (0 1.1).Pre-morbidly, Pt. was independent/mod-I in Balance, Safety Awareness, Self-Care, Locomotion, Tra nsfers Control, Sphincter Control, Communication, Endurance, and Social Cognition; and he had good Lo comotion, Safety Awareness, Balance, Social Cognition, Transfers Control, Sphincter Control, Self-Car e, Communication, and Endurance.Currently, he has deficits of Balance, Locomotion, Safety Awareness, Transfers Control, and Endurance.Pt. is now referred to [facility] for acute i n-patient rehabilitation in order to maximize patient's functional independence in activities of keshia y living, strength, ROM, and mobility.- Rehab Goal Patient has realistic goal of being discharged at assistance level 6-Sangita to reside at Home with Fam otilio/Relatives. MDM/PLAN: - Physical Therapy Gait dysfunction - to improve, our physical therapists will perform initial evaluation of pt's statu s upon admission and devise an individualized program for Gait Training, and Wheel Chair mobility Inability to transfer - to improve, our physical therapists will perform initial evaluation of pt's status upon admission and devise an individualized program for Bed mobility Need for home safety evaluation - to improve, our physical therapists will perform initial evaluatio n of pt's status upon admission and devise an individualized program for Home Evaluation Need in caregiver upon discharge - to improve, our physical therapists will perform initial evaluati on of pt's status upon admission and devise an individualized program for Caregiver Training New precaution - to improve, our physical therapists will perform initial evaluation of pt's status upon admission and devise an individualized program for Patient precaution education Edema - to improve, our physical therapists will perform initial evaluation of pt's status upon admis raza and devise an individualized program for Elevation Training, and Lymphedema Therapy Poor balance - to improve, our physical therapists will perform initial evaluation of pt's status up on admission and devise an individualized program for Balance Training Poor endurance - to improve, our physical therapists will perform initial evaluation of pt's status upon admission and devise an individualized program for Endurance Training Weakness - to improve, our physical therapists will perform initial evaluation of pt's status upon a dmission and devise an individualized program for Aquatic Therapy, Neuromuscular Reeducation, and Str engthening Achieving independence - to improve, our physical therapists will perform initial evaluation of pt's status upon admission and devise an individualized program for Community Reintegration Activities - Occupational Therapy Need for team primary care physician - to improve, our occupation therapists will perform initial evaluation of pt's status upon admission and devise an individualized program for Caregiver Training Weakness - to improve, our occupation therapists will perform initial evaluation of pt's status upon admission and devise an individualized program for Aquatic Therapy, Balance, Endurance, UE ROM, and UE strengthening - Other See attached MAR (Medication Administration Record) - Diet Type Continue Regular - Diet - Liquid Texture Continue Regular - Tube Feed Continue N/A - Bladder care per protocol - Weight Bearing Precaution WBAT left LE - Skin care per protocol - Diet - Solid Texture Continue Regular - Shower allowing shower for Dementia, TBI, Stroke, or others FUNCTIONAL STATUS: UPDATED AT WEEKLY TEAM CONFERENCE - Bladder Same accident frequency: 7-Ind - No accidents in the past 7 days - Bowel Same accident frequency: 7-Ind - No accidents in the past 7 days - Walking Same score based on distance walked: 3(>=150ft) - Wheelchair Same score based on distance traveled: 0(N/A) FUNCTIONAL STATUS: - Self-Care A. Eating Ind B. Grooming Sang[place] C. Bathing sup D. Dressing - Upper sup E. Dressing - Lower sup F. Toileting Sang[place] - Sphincter Control G. Bladder control Sangita H. Bowel control Sang[place] - Transfers Control I. Bed/Chair/Wheelchair sup J. Toilet sup K. Tub/Shower sup - Locomotion L. Walk/Wheelchair (B) Ind M. Stairs sup - Communication N. Comprehension (B) Ind O. Expression (B) Ind - Social Cognition P. Social Interaction Ind Q. Problem Solving Ind R. Memory Ind - Endurance Good - Balance Good - Safety Awareness Good QI SCORES: - Self-Care A. Eating 06-Independent B. Oral hygiene 06-Independent C. Toileting hygiene 06-Independent E. Shower/bathe self 04-Supervision or touching assistance F. Upper body dressing 04-Supervision or touching assistance G. Lower body dressing 03-Partial/moderate assistance H. Putting on/taking off footwear 04-Supervision or touching assistance - Mobility A. Roll left and right 04-Supervision or touching assistance B. Sit to lying 04-Supervision or touching assistance C. Lying to sitting on side of bed 04-Supervision or touching assistance D. Sit to stand 04-Supervision or touching assistance E. Chair/kcv-le-osull transfer 04-Supervision or touching assistance F. Toilet transfer 04-Supervision or touching assistance G. Car transfer 88-Not attempted due to medical condition or safety concerns I. Walk 10 feet 04-Supervision or touching assistance J. Walk 50 feet with two turns 04-Supervision or touching assistance K. Walk 150 feet 04-Supervision or touching assistance L. Walking 10 feet on uneven surfaces 88-Not attempted due to medical condition or safety concerns M. 1 step (curb) 88-Not attempted due to medical condition or safety concerns N. 4 steps 88-Not attempted due to medical condition or safety concerns O. 12 steps 88-Not attempted due to medical condition or safety concerns P. Picking up object 04-Supervision or touching assistance R. Wheel 50 feet with two turns 88-Not attempted due to medical condition or safety concerns S. Wheel 150 feet 88-Not attempted due to medical condition or safety concerns - Bladder and Bowel Bladder continence 0-Always continent Bowel continence 0-Always continent - Endurance Fair - Balance Fair - Safety Awareness Fair [facility]RENT [facility]. 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
[2019-03-09] MEDS ORDERED: SENOSIDES 8.6 MG TAB PO SCH (21:00)
[2019-03-10] MEDS: ENOXAPARIN 40 MG/0.4 ML SQ SCH (06:59)
[2019-03-10] MEDS: INSULIN -REGULAR HUMAN 50 UNIT/0.5 ML ML SQ SCH ×4 (07:30→20:46)
[2019-03-10] MEDS: PROMOD 30 ML DOSE PO SCH ×2 (08:00→20:46)
[2019-03-10] MEDS: TRAMADOL HCL 50 MG TAB PO PRN (09:03)
[2019-03-10] MEDS: CLOPIDOGREL 75 MG TABLET PO SCH (09:04)
[2019-03-10] MEDS: allopurinoL 100 MG TAB PO SCH (09:04)
[2019-03-10] MEDS: ASPIRIN EC 81 MG TAB PO SCH (09:04)
[2019-03-10] MEDS: DULOXETINE 20 MG CAP PO SCH (09:04)
[2019-03-10] MEDS: METOPROLOL TAR 50 MG TAB PO SCH ×2 (09:05→20:45)
[2019-03-10] MEDS: METFORMIN HCL 500 MG TAB PO SCH ×2 (09:06→17:08)
[2019-03-10] MEDS: lisinopriL 5 MG TAB PO SCH ×2 (09:07→20:45)
--- NOTE | 2019-03-10 13:40 | P.PN ---
Subjective Date of Service: 03/11/19 Subjective: No new changes Remains in good spirit. Limited ROM on LUE Review of Systems 10-point ROS is otherwise unremarkable Physical Examination - Vital Signs Temperature: 98.3 F Blood Pressure: 130/83 Pulse: 74 Respirations: 16 Pulse Ox (%): 98 - Physical Exam General: Alert, In no apparent distress HEENT: Atraumatic, PERRLA, EOMI Neck: Supple, JVD not distended Respiratory: Clear to auscultation bilaterally, Normal air movement Cardiovascular: Regular rate/rhythm, Normal S1 S2 Gastrointestinal: Normal bowel sounds, No tenderness Musculoskeletal: No tenderness Integumentary: No rashes Neurological: Normal speech, Normal affect, Abnormal tone Lymphatics: No axilla or inguinal lymphadenopathy - Studies Reviewed Medications List Reviewed: Yes Assessment And Plan - Plan Assessment And Plan: A 44-year-old male with: 1. Acute cerebrovascular accident, right basal ganglia. Continue with aspirin and statin. 2. Hypertriglyceridemia. Continue statin. 3. Fever. Afebrile now. IV antibiotics discontinued. Cultures studies from recent admission did not show any growth. Resolved 4. Hypertensive emergency. Blood pressure now better controlled. Hydralazine dose was adjusted. We will continue to monitor. 5. Chronic kidney disease stage 3. Monitor creatinine level 6. Diabetes mellitus type 2 with hyperglycemia. Adjust to aggressive sliding scale insulin and monitor blood glucose levels. Has been started on metformin. A1c is only 5.7%. 7. Obesity, BMI of 32. 8. Left wrist pain, stable. Continue with splint when not having PT. 9. Generalized arthritis. Patient needs further workup to rule out rheumatoid arthritis. 10. Gout. Continue allopurinol. 11. Adjustment disorder with depressed mood. Started on SSRI 12. Deep vein thrombosis prophylaxis, addressed. Continue with Lovenox.
[2019-03-10] MEDS ORDERED: FOLIC ACID 1 MG TABLET PO ONE (13:45)
[2019-03-10] MEDS ORDERED: THIAMINE HCL 100 MG TABLET PO ONE (13:45)
--- NOTE | 2019-03-10 16:41 | R.PN ---
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 SUBJECTIVE: Pt denied any depression. Pt denied any Shortness of Breath. He had a low grade fever. His procalcitonin and lactate were normal. He is doing well with physical, occupational and speech therapy. Blood work shows chronic renal insufficiency and uncontrolled diabet es mellitus. Low dosage metformin 250 mg twice daily, aspirin 81 mg, plavix 75 mg and lipitor 40 mg d aily. Ambulated 1500' with independence using a rolling walker. His left arm, forearm and hand strength is improving slowly but is still moderately to severely weak. Glucose 173 to 254. He is on metformin 250 mg bid and mild insulin sliding scale. VITAL SIGNS Temperature: 98.3 F SBP/DBP: 130/83 Pulse: 74 Resp: 16 MEDICATION ALLERGIES: acetaminophen hydrocodone ENVIRONMENTAL ALLERGIES: - Substance Allergies None Known - Other Allergies None Known NURSING: - Shower allowing shower - Bladder care per protocol - Skin care per protocol PRECAUTIONS: - Weight Bearing Precaution WBAT left LE ACTIVITIES OOB only with supervision THERAPIES: - Occupational Therapy Cognitive Retraining. Visual Perceptual Training. - Dietary and Nutrition Adequate Nutrition. Nutritional Education. Nutritional Supplements. - Speech Therapy Cognitive Training. Expressive Language Skills. Memory Strategies. Receptive Language Skills. Speech Intelligibility Training. PHYSICAL EXAM - Gen Alert and awake Sitting edge of bed In distress secondary to pain Oriented to: person, time, and place - Skin No skin breakdown. Normacephalic - Eyes No abnormalities - ENMT No abnormalities - Neck No abnormalities - CVS RRR - Chest No abnormalities - Resp Clear to auscultation - Abd Soft - GI Non distended Deferred - No abnormalities - Ext Mild left upper extremity edema. - MSK 1-2/5 weakness in left upper and 4/5 weakness in left lower extremity. - Neuro 1-2/5 weakness in left upper and 4/5 weakness in left lower extremity. - Psych No abnormalities ASSESSMENT: Pt. is a 44 yo Right-handed male.On 03/01/2019 Pt. presented to [facility] with sudden onset of left-side weakness.On 03/01/2019 he was admitted to [facility] with jessica gnosis right basal ganglia infarct.His impairment category is Stroke 01 - Left Body (Right Brain) (0 1.1).Pre-morbidly, Pt. was independent/mod-I in Balance, Safety Awareness, Self-Care, Locomotion, Tra nsfers Control, Sphincter Control, Communication, Endurance, and Social Cognition; and he had good Lo comotion, Safety Awareness, Balance, Social Cognition, Transfers Control, Sphincter Control, Self-Car e, Communication, and Endurance.Currently, he has deficits of Balance, Locomotion, Safety Awareness, Transfers Control, and Endurance.Pt. is now referred to [facility] for acute i n-patient rehabilitation in order to maximize patient's functional independence in activities of keshia y living, strength, ROM, and mobility.- Rehab Goal Patient has realistic goal of being discharged at assistance level 6-Sangita to reside at Home with Fam otilio/Relatives. MDM/PLAN: - Physical Therapy Gait dysfunction - to improve, our physical therapists will perform initial evaluation of pt's statu s upon admission and devise an individualized program for Gait Training, and Wheel Chair mobility Inability to transfer - to improve, our physical therapists will perform initial evaluation of pt's status upon admission and devise an individualized program for Bed mobility Need for home safety evaluation - to improve, our physical therapists will perform initial evaluatio n of pt's status upon admission and devise an individualized program for Home Evaluation Need in caregiver upon discharge - to improve, our physical therapists will perform initial evaluati on of pt's status upon admission and devise an individualized program for Caregiver Training New precaution - to improve, our physical therapists will perform initial evaluation of pt's status upon admission and devise an individualized program for Patient precaution education Edema - to improve, our physical therapists will perform initial evaluation of pt's status upon admi ssion and devise an individualized program for Elevation Training, and Lymphedema Therapy Poor balance - to improve, our physical therapists will perform initial evaluation of pt's status up on admission and devise an individualized program for Balance Training Poor endurance - to improve, our physical therapists will perform initial evaluation of pt's status upon admission and devise an individualized program for Endurance Training Weakness - to improve, our physical therapists will perform initial evaluation of pt's status upon a dmission and devise an individualized program for Aquatic Therapy, Neuromuscular Reeducation, and Str engthening Achieving independence - to improve, our physical therapists will perform initial evaluation of pt's status upon admission and devise an individualized program for Community Reintegration Activities - Occupational Therapy Need for congregational care pastor - to improve, our occupation therapists will perform initial evaluation of pt's status upon admission and devise an individualized program for Caregiver Training Weakness - to improve, our occupation therapists will perform initial evaluation of pt's status upon admission and devise an individualized program for Aquatic Therapy, Balance, Endurance, UE ROM, and UE strengthening - Other See attached MAR (Medication Administration Record) - Diet Type Continue Regular - Diet - Liquid Texture Continue Regular - Tube Feed Continue N/A - Bladder care per protocol - Weight Bearing Precaution WBAT left LE - Skin care per protocol - Diet - Solid Texture Continue Regular - Shower allowing shower for Dementia, TBI, Stroke, or others FUNCTIONAL STATUS: UPDATED AT WEEKLY TEAM CONFERENCE - Bladder Same accident frequency: 7-Ind - No accidents in the past 7 days - Bowel Same accident frequency: 7-Ind - No accidents in the past 7 days - Walking Same score based on distance walked: 3(>=150ft) - Wheelchair Same score based on distance traveled: 0(N/A) FUNCTIONAL STATUS: - Self-Care A. Eating Ind B. Grooming Sangita C. Bathing sup D. Dressing - Upper sup E. Dressing - Lower sup F. Toileting Sangita - Sphincter Control G. Bladder control Sangita H. Bowel control Sangita - Transfers Control I. Bed/Chair/Wheelchair sup J. Toilet sup K. Tub/Shower sup - Locomotion L. Walk/Wheelchair (B) Ind M. Stairs sup - Communication N. Comprehension (B) Ind O. Expression (B) Ind - Social Cognition P. Social Interaction Ind Q. Problem Solving Ind R. Memory Ind - Endurance Good - Balance Good - Safety Awareness Good QI SCORES: - Self-Care A. Eating 06-Independent B. Oral hygiene 06-Independent C. Toileting hygiene 06-Independent E. Shower/bathe self 04-Supervision or touching assistance F. Upper body dressing 04-Supervision or touching assistance G. Lower body dressing 03-Partial/moderate assistance H. Putting on/taking off footwear 04-Supervision or touching assistance - Mobility A. Roll left and right 04-Supervision or touching assistance B. Sit to lying 04-Supervision or touching assistance C. Lying to sitting on side of bed 04-Supervision or touching assistance D. Sit to stand 04-Supervision or touching assistance E. Chair/[id number] transfer 04-Supervision or touching assistance F. Toilet transfer 04-Supervision or touching assistance G. Car transfer 88-Not attempted due to medical condition or safety concerns I. Walk 10 feet 04-Supervision or touching assistance J. Walk 50 feet with two turns 04-Supervision or touching assistance K. Walk 150 feet 04-Supervision or touching assistance L. Walking 10 feet on uneven surfaces 88-Not attempted due to medical condition or safety concerns M. 1 step (curb) 88-Not attempted due to medical condition or safety concerns N. 4 steps 88-Not attempted due to medical condition or safety concerns O. 12 steps 88-Not attempted due to medical condition or safety concerns P. Picking up object 04-Supervision or touching assistance R. Wheel 50 feet with two turns 88-Not attempted due to medical condition or safety concerns S. Wheel 150 feet 88-Not attempted due to medical condition or safety concerns - Bladder and Bowel Bladder continence 0-Always continent Bowel continence 0-Always continent - Endurance Fair - Balance Fair - Safety Awareness Fair CURRENT FUNC. 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
[2019-03-10] MEDS: FENOFIBRATE 48 MG TAB PO SCH (20:44)
[2019-03-10] MEDS: ATORVASTATIN 40 MG TAB PO SCH (20:44)
[2019-03-10] MEDS: MELATONIN 3 MG TABLET PO SCH (20:46)
[2019-03-11] MEDS: INSULIN -REGULAR HUMAN 50 UNIT/0.5 ML ML SQ SCH ×4 (07:30→20:21)
[2019-03-11] MEDS: PROMOD 30 ML DOSE PO SCH ×2 (08:00→20:00)
[2019-03-11] MEDS: ASPIRIN EC 81 MG TAB PO SCH (08:15)
[2019-03-11] MEDS: ENOXAPARIN 40 MG/0.4 ML SQ SCH (08:15)
[2019-03-11] MEDS: allopurinoL 100 MG TAB PO SCH (08:16)
[2019-03-11] MEDS: lisinopriL 5 MG TAB PO SCH ×2 (08:16→20:16)
[2019-03-11] MEDS: CLOPIDOGREL 75 MG TABLET PO SCH (08:16)
[2019-03-11] MEDS: DULOXETINE 20 MG CAP PO SCH (08:16)
[2019-03-11] MEDS: FOLIC ACID 1 MG TABLET PO SCH (08:16)
[2019-03-11] MEDS: METOPROLOL TAR 50 MG TAB PO SCH ×2 (08:18→20:17)
[2019-03-11] MEDS: THIAMINE HCL 100 MG TABLET PO SCH (08:18)
[2019-03-11] MEDS: METFORMIN HCL 500 MG TAB PO SCH ×2 (08:19→17:39)
[2019-03-11 10:54] LABS: Absolute Lymphocytes (CBC) 1.4 K/uL (0.7-4.9); Basophils % 0.7 % (0-1.3); Hematocrit 35.7 % (39.6-49.0); Lymphocytes % 11.2 % (15.3-44.8); RBC Red Blood Cell Count 4.28 M/uL (4.33-5.43)
[2019-03-11 11:09] LABS: Potassium 4.7 mmol/L (3.5-5.1)
--- NOTE | 2019-03-11 16:22 | FAST ---
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 Ervin Olivas M.D. ADMISSION DIAGNOSIS: - Stroke 01 - Left Body (Right Brain) (01.1) right basal ganglia infarct. EATING: Not assessed/no information CODE: - ORAL HYGIENE: ORAL HYGIENE - STEP 1: Does the patient complete the activity by him/herself with no assistance (physical, verbal/nonverbal cueing, setup/clean-up)? Yes. 1. [id number] ADMISSION PERFORMANCE: Independent CODE: 06 TOILETING HYGIENE: Not assessed/no information CODE: - BATHING: SHOWER/BATHE SELF - STEP 1: Does the patient complete the activity by him/herself with no assistance (physical, verbal/nonverbal cueing, setup/clean-up)? Yes. 1. [id number] ADMISSION PERFORMANCE: Independent CODE: 06 DRESSING - UPPER BODY: DRESSING - UPPER BODY - STEP 1: Does the patient complete the activity by him/herself with no assistance (physical, verbal/nonverbal cueing, setup/clean-up)? Yes. 1. ADMISSION PERFORMANCE: Independent CODE: 06 DRESSING - LOWER BODY: DRESSING - LOWER BODY - STEP 1: Does the patient complete the activity by him/herself with no assistance (physical, verbal/nonverbal cueing, setup/clean-up)? Yes. 1. [id number] ADMISSION PERFORMANCE: Independent CODE: 06 PUTTING ON/TAKING OFF FOOTWEAR: FOOTWEAR - STEP 1: Does the patient complete the activity by him/herself with no assistance (physical, verbal/nonverbal cueing, setup/clean-up)? Yes. 1. [id number] ADMISSION PERFORMANCE: Independent CODE: 06 DOES THE PATIENT USE A WHEELCHAIR/SCOOTER? CODE: EXPR INDICATE THE TYPE OF WHEELCHAIR/SCOOTER USED: CODE: EXPR INDICATE THE TYPE OF WHEELCHAIR/SCOOTER USED: CODE: EXPR BLADDER AND BOWEL: CODE: EXPR CODE: EXPR SIGNATURE PANEL: The following modified sections: 1. [id number] Admission Performance, 1. [id number] Admission Performance, 1. [id number] Admission Performance, 1. [id number] Admission Performance, 1. [id number] Admission Performance were [electronically] signed by GWEN Nino on SatMar 11 2019 16:21:12 GMT-0600 (Central Standard Time)
[2019-03-11] MEDS: ATORVASTATIN 40 MG TAB PO SCH (20:16)
[2019-03-11] MEDS: MELATONIN 3 MG TABLET PO SCH (20:18)
[2019-03-11] MEDS: FENOFIBRATE 48 MG TAB PO SCH (20:21)
--- NOTE | 2019-03-11 21:34 | R.PN ---
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 SUBJECTIVE: Pt denied any depression. Pt denied any Shortness of Breath. He had a low grade fever. His procalcitonin and lactate were normal. He is doing well with physical, occupational and speech therapy. Blood work shows chronic renal insufficiency and uncontrolled diabet es mellitus. Low dosage metformin 250 mg twice daily, aspirin 81 mg, plavix 75 mg and lipitor 40 mg d aily. Ambulated 1250' with independence using a rolling walker. Up and down 25 steps with independence. His left arm, forearm and hand strength is improving slowly but is still moderately to severely weak. Glucose 173 to 254. He is on metformin 250 mg bid and mild insulin sliding scale. VITAL SIGNS Temperature: 98.3 F SBP/DBP: 163/94 Pulse: 76 Resp: 16 MEDICATION ALLERGIES: acetaminophen hydrocodone ENVIRONMENTAL ALLERGIES: - Substance Allergies None Known - Other Allergies None Known NURSING: - Shower allowing shower - Bladder care per protocol - Skin care per protocol PRECAUTIONS: - Weight Bearing Precaution WBAT left LE ACTIVITIES OOB only with supervision THERAPIES: - Occupational Therapy Cognitive Retraining. Visual Perceptual Training. - Dietary and Nutrition Adequate Nutrition. Nutritional Education. Nutritional Supplements. - Speech Therapy Cognitive Training. Expressive Language Skills. Memory Strategies. Receptive Language Skills. Speech Intelligibility Training. PHYSICAL EXAM - Gen Alert and awake Sitting edge of bed In distress secondary to pain Oriented to: person, time, and place - Skin No skin breakdown. Normacephalic - Eyes No abnormalities - ENMT No abnormalities - Neck No abnormalities - CVS RRR - Chest No abnormalities - Resp Clear to auscultation - Abd Soft - GI Non distended Deferred - No abnormalities - Ext Mild left upper extremity edema. - MSK 1-2/5 weakness in left upper and 4/5 weakness in left lower extremity. - Neuro 1-2/5 weakness in left upper and 4/5 weakness in left lower extremity. - Psych No abnormalities ASSESSMENT: Pt. is a 44 yo Right-handed male.On 03/01/2019 Pt. presented to [facility] with sudden onset of left-side weakness.On 03/01/2019 he was admitted to [facility] with jessica gnosis right basal ganglia infarct.His impairment category is Stroke 01 - Left Body (Right Brain) (0 1.1).Pre-morbidly, Pt. was independent/mod-I in Balance, Safety Awareness, Self-Care, Locomotion, Tra nsfers Control, Sphincter Control, Communication, Endurance, and Social Cognition; and he had good Lo comotion, Safety Awareness, Balance, Social Cognition, Transfers Control, Sphincter Control, Self-Car e, Communication, and Endurance.Currently, he has deficits of Balance, Locomotion, Safety Awareness, Transfers Control, and Endurance.Pt. is now referred to [facility] for acute i n-patient rehabilitation in order to maximize patient's functional independence in activities of keshia y living, strength, ROM, and mobility.- Rehab Goal Patient has realistic goal of being discharged at assistance level 6-Sangita to reside at Home with Fam otilio/Relatives. MDM/PLAN: - Physical Therapy Gait dysfunction - to improve, our physical therapists will perform initial evaluation of pt's statu s upon admission and devise an individualized program for Gait Training, and Wheel Chair mobility Inability to transfer - to improve, our physical therapists will perform initial evaluation of pt's status upon admission and devise an individualized program for Bed mobility Need for home safety evaluation - to improve, our physical therapists will perform initial evaluatio n of pt's status upon admission and devise an individualized program for Home Evaluation Need in caregiver upon discharge - to improve, our physical therapists will perform initial evaluati on of pt's status upon admission and devise an individualized program for Caregiver Training New precaution - to improve, our physical therapists will perform initial evaluation of pt's status upon admission and devise an individualized program for Patient precaution education Edema - to improve, our physical therapists will perform initial evaluation of pt's status upon admi ssion and devise an individualized program for Elevation Training, and Lymphedema Therapy Poor balance - to improve, our physical therapists will perform initial evaluation of pt's status up on admission and devise an individualized program for Balance Training Poor endurance - to improve, our physical therapists will perform initial evaluation of pt's status upon admission and devise an individualized program for Endurance Training Weakness - to improve, our physical therapists will perform initial evaluation of pt's status upon a dmission and devise an individualized program for Aquatic Therapy, Neuromuscular Reeducation, and Str engthening Achieving independence - to improve, our physical therapists will perform initial evaluation of pt's status upon admission and devise an individualized program for Community Reintegration Activities - Occupational Therapy Need for director of medicare - to improve, our occupation therapists will perform initial evaluation of pt's status upon admission and devise an individualized program for Caregiver Training Weakness - to improve, our occupation therapists will perform initial evaluation of pt's status upon admission and devise an individualized program for Aquatic Therapy, Balance, Endurance, UE ROM, and UE strengthening - Other See attached MAR (Medication Administration Record) - Diet Type Continue Regular - Diet - Liquid Texture Continue Regular - Tube Feed Continue N/A - Bladder care per protocol - Weight Bearing Precaution WBAT left LE - Skin care per protocol - Diet - Solid Texture Continue Regular - Shower allowing shower for Dementia, TBI, Stroke, or others FUNCTIONAL STATUS: UPDATED AT WEEKLY TEAM CONFERENCE - Bladder Same accident frequency: 7-Ind - No accidents in the past 7 days - Bowel Same accident frequency: 7-Ind - No accidents in the past 7 days - Walking Same score based on distance walked: 3(>=150ft) - Wheelchair Same score based on distance traveled: 0(N/A) FUNCTIONAL STATUS: - Self-Care A. Eating Ind B. Grooming Sangita C. Bathing sup D. Dressing - Upper sup E. Dressing - Lower sup F. Toileting Sangita - Sphincter Control G. Bladder control Sangita H. Bowel control Sangita - Transfers Control I. Bed/Chair/Wheelchair sup J. Toilet sup K. Tub/Shower sup - Locomotion L. Walk/Wheelchair (B) Ind M. Stairs sup - Communication N. Comprehension (B) Ind O. Expression (B) Ind - Social Cognition P. Social Interaction Ind Q. Problem Solving Ind R. Memory Ind - Endurance Good - Balance Good - Safety Awareness Good QI SCORES: - Self-Care A. Eating 06-Independent B. Oral hygiene 06-Independent C. Toileting hygiene 06-Independent E. Shower/bathe self 04-Supervision or touching assistance F. Upper body dressing 04-Supervision or touching assistance G. Lower body dressing 03-Partial/moderate assistance H. Putting on/taking off footwear 04-Supervision or touching assistance - Mobility A. Roll left and right 04-Supervision or touching assistance B. Sit to lying 04-Supervision or touching assistance C. Lying to sitting on side of bed 04-Supervision or touching assistance D. Sit to stand 04-Supervision or touching assistance E. Chair/[id number] transfer 04-Supervision or touching assistance F. Toilet transfer 04-Supervision or touching assistance G. Car transfer 88-Not attempted due to medical condition or safety concerns I. Walk 10 feet 04-Supervision or touching assistance J. Walk 50 feet with two turns 04-Supervision or touching assistance K. Walk 150 feet 04-Supervision or touching assistance L. Walking 10 feet on uneven surfaces 88-Not attempted due to medical condition or safety concerns M. 1 step (curb) 88-Not attempted due to medical condition or safety concerns N. 4 steps 88-Not attempted due to medical condition or safety concerns O. 12 steps 88-Not attempted due to medical condition or safety concerns P. Picking up object 04-Supervision or touching assistance R. Wheel 50 feet with two turns 88-Not attempted due to medical condition or safety concerns S. Wheel 150 feet 88-Not attempted due to medical condition or safety concerns - Bladder and Bowel Bladder continence 0-Always continent Bowel continence 0-Always continent - Endurance Fair - Balance Fair - Safety Awareness Fair [facility] 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
[2019-03-12] MEDS: ENOXAPARIN 40 MG/0.4 ML SQ SCH (06:46)
[2019-03-12] MEDS: INSULIN -REGULAR HUMAN 50 UNIT/0.5 ML ML SQ SCH ×4 (07:30→21:00)
[2019-03-12] MEDS: FOLIC ACID 1 MG TABLET PO SCH (07:53)
[2019-03-12] MEDS: ASPIRIN EC 81 MG TAB PO SCH (07:53)
[2019-03-12] MEDS: allopurinoL 100 MG TAB PO SCH (07:54)
[2019-03-12] MEDS: METFORMIN HCL 500 MG TAB PO SCH ×2 (07:54→17:41)
[2019-03-12] MEDS: lisinopriL 5 MG TAB PO SCH ×2 (07:54→20:24)
[2019-03-12] MEDS: METOPROLOL TAR 50 MG TAB PO SCH ×2 (07:54→20:25)
[2019-03-12] MEDS: CLOPIDOGREL 75 MG TABLET PO SCH (07:54)
[2019-03-12] MEDS: DULOXETINE 20 MG CAP PO SCH (07:55)
[2019-03-12] MEDS: PROMOD 30 ML DOSE PO SCH ×2 (07:55→20:00)
[2019-03-12] MEDS: THIAMINE HCL 100 MG TABLET PO SCH (07:56)
--- NOTE | 2019-03-12 12:59 | P.PN ---
Subjective Date of Service: 03/12/19 Remains in good spirit. Limited ROM on LUE In therapy. Physical Examination - Vital Signs Temperature: 97.6 F Blood Pressure: 146/90 Pulse: 67 Respirations: 16 Pulse Ox (%): 98 - Physical Exam General: Alert, In no apparent distress HEENT: Atraumatic, PERRLA, EOMI Neck: Supple, JVD not distended Respiratory: Clear to auscultation bilaterally, Normal air movement Cardiovascular: Regular rate/rhythm, Normal S1 S2 Gastrointestinal: Normal bowel sounds, No tenderness Musculoskeletal: No tenderness Integumentary: No rashes Neurological: Normal speech, Normal affect, Abnormal tone Lymphatics: No axilla or inguinal lymphadenopathy - Studies Medications List Reviewed: Yes Assessment And Plan - Plan Assessment And Plan: A 44-year-old male with: 1. Acute cerebrovascular accident, right basal ganglia. Continue with aspirin and statin. 2. Hypertriglyceridemia. Continue statin. 3. Fever. Afebrile now. IV antibiotics discontinued. Cultures studies from recent admission did not show any growth. Resolved -now with leukocytosis, no acute infection. monitor VS. -repeat lab in a.m 4. Hypertensive emergency. Blood pressure now better controlled. Hydralazine dose was adjusted. We will continue to monitor. 5. Chronic kidney disease stage 3. Monitor creatinine level 6. Diabetes mellitus type 2 with hyperglycemia. Adjust to aggressive sliding scale insulin and monitor blood glucose levels. Has been started on metformin. A1c is only 5.7%. 7. Obesity, BMI of 32. 8. Left wrist pain, stable. Continue with splint when not having PT. 9. Generalized arthritis. Patient needs further workup to rule out rheumatoid arthritis. 10. Gout. Continue allopurinol. 11. Adjustment disorder with depressed mood. Started on SSRI 12. Deep vein thrombosis prophylaxis, addressed. Continue with Lovenox.
[2019-03-12 13:27] LABS: Basophils % 0.6 % (0-1.3); Hematocrit 33.4 % (39.6-49.0); Lymphocytes % 11.3 % (15.3-44.8); MPV 8.6 fL (7.6-11.3); RBC Red Blood Cell Count 4.01 M/uL (4.33-5.43)
--- NOTE | 2019-03-12 13:51 | FAST ---
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 Ervin Olivas M.D. ADMISSION DIAGNOSIS: - Stroke 01 - Left Body (Right Brain) (01.1) right basal ganglia infarct. ROLL LEFT AND RIGHT: ROLL LEFT AND RIGHT - STEP 1: Does the patient complete the activity by him/herself with no assistance (physical, verbal/nonverbal cueing, setup/clean-up)? Yes. 1. [id number] ADMISSION PERFORMANCE: Independent CODE: 06 SIT TO LYING: SIT TO LYING - STEP 1: Does the patient complete the activity by him/herself with no assistance (physical, verbal/nonverbal cueing, setup/clean-up)? Yes. 1. [id number] ADMISSION PERFORMANCE: Independent CODE: 06 LYING TO SITTING: LYING TO SITTING ON SIDE OF BED - STEP 1: Does the patient complete the activity by him/herself with no assistance (physical, verbal/nonverbal cueing, setup/clean-up)? Yes. 1. [id number] ADMISSION PERFORMANCE: Independent CODE: 06 SIT TO STAND: SIT TO STAND - STEP 1: Does the patient complete the activity by him/herself with no assistance (physical, verbal/nonverbal cueing, setup/clean-up)? Yes. 1. [id number] ADMISSION PERFORMANCE: Independent CODE: 06 TRANSFERS: BED, CHAIR: CHAIR/[id number] TRANSFER - STEP 1: Does the patient complete the activity by him/herself with no assistance (physical, verbal/nonverbal cueing, setup/clean-up)? Yes. 1. [id number] ADMISSION PERFORMANCE: Independent CODE: 06 TRANSFER TOILET: TOILET TRANSFER - STEP 1: Does the patient complete the activity by him/herself with no assistance (physical, verbal/nonverbal cueing, setup/clean-up)? Yes. 1. [id number] ADMISSION PERFORMANCE: Independent CODE: 06 TRANSFERS: CAR: Not assessed/no information CODE: - WALK 10 FEET: WALK 10 FEET - STEP 1: Does the patient complete the activity by him/herself with no assistance (physical, verbal/nonverbal cueing, setup/clean-up)? Yes. 1. [id number] ADMISSION PERFORMANCE: Independent CODE: 06 WALK 50 FEET: WALK 50 FEET - STEP 1: Does the patient complete the activity by him/herself with no assistance (physical, verbal/nonverbal cueing, setup/clean-up)? Yes. 1. [id number] ADMISSION PERFORMANCE: Independent CODE: 06 WALK 150 FEET: WALK 150 FEET - STEP 1: Does the patient complete the activity by him/herself with no assistance (physical, verbal/nonverbal cueing, setup/clean-up)? Yes. 1. [id number] ADMISSION PERFORMANCE: Independent CODE: 06 WALK 10 FEET UNEVEN: Not attempted due to medical condition or safety concerns CODE: 88 1 STEP (CURB): Not assessed/no information CODE: - PICKING UP OBJECT: Not assessed/no information CODE: - DOES THE PATIENT USE A WHEELCHAIR/SCOOTER? Q1. DOES THE PATIENT USE A WHEELCHAIR/SCOOTER?: No CODE: 0 INDICATE THE TYPE OF WHEELCHAIR/SCOOTER USED: CODE: EXPR INDICATE THE TYPE OF WHEELCHAIR/SCOOTER USED: CODE: EXPR BLADDER AND BOWEL: CODE: EXPR CODE: EXPR SIGNATURE PANEL: The following modified sections: 1. [id number] Admission Performance, 1. [id number] Admission Performance, 1. [id number] Admission Performance, 1. [id number] Admission Performance, 1. [id number] Admission Performance, 1. [id number] Admission Performance, 1. MA6207C Admission Performance, 1. [id number] Admission Performance , 1. [id number] Admission Performance, Q1. Does the patient use a wheelchair/scooter? were [electronical ly] signed by Diana Rizvi PTA on SatMar 12 2019 13:50:03 GMT-0600 (Central Standard Time)
[2019-03-12] MEDS: FENOFIBRATE 48 MG TAB PO SCH (20:24)
[2019-03-12] MEDS: ATORVASTATIN 40 MG TAB PO SCH (20:25)
[2019-03-12] MEDS: MELATONIN 3 MG TABLET PO SCH (20:25)
--- NOTE | 2019-03-12 22:14 | R.PN ---
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 SUBJECTIVE: Pt denied any depression. Pt denied any Shortness of Breath. He had a low grade fever. His procalcitonin and lactate were normal. He is doing well with physical, occupational and speech therapy. Blood work shows chronic renal insufficiency and uncontrolled diabet es mellitus. Low dosage metformin 250 mg twice daily, aspirin 81 mg, plavix 75 mg and lipitor 40 mg d aily. Ambulated 400' with independence using a rolling walker. Up and down 25 steps with independence. His left arm, forearm and hand strength is improving slowly but is still moderately to severely weak. Glucose 173 to 254. He is on metformin 250 mg bid and mild insulin sliding scale. VITAL SIGNS Temperature: 97.2 F SBP/DBP: 146/90 Pulse: 73 Resp: 14 Temperature: 97.6 F MEDICATION ALLERGIES: acetaminophen hydrocodone ENVIRONMENTAL ALLERGIES: - Substance Allergies None Known - Other Allergies None Known NURSING: - Shower allowing shower - Bladder care per protocol - Skin care per protocol PRECAUTIONS: - Weight Bearing Precaution WBAT left LE ACTIVITIES OOB only with supervision THERAPIES: - Occupational Therapy Cognitive Retraining. Visual Perceptual Training. - Dietary and Nutrition Adequate Nutrition. Nutritional Education. Nutritional Supplements. - Speech Therapy Cognitive Training. Expressive Language Skills. Memory Strategies. Receptive Language Skills. Speech Intelligibility Training. PHYSICAL EXAM - Gen Alert and awake Sitting edge of bed In distress secondary to pain Oriented to: person, time, and place - Skin No skin breakdown. Normacephalic - Eyes No abnormalities - ENMT No abnormalities - Neck No abnormalities - CVS RRR - Chest No abnormalities - Resp Clear to auscultation - Abd Soft - GI Non distended Deferred - No abnormalities - Ext Mild left upper extremity edema. - MSK 1-2/5 weakness in left upper and 4/5 weakness in left lower extremity. - Neuro 1-2/5 weakness in left upper and 4/5 weakness in left lower extremity. - Psych No abnormalities ASSESSMENT: Pt. is a 44 yo Right-handed male.On 03/01/2019 Pt. presented to [facility] with sudden onset of left-side weakness.On 03/01/2019 he was admitted to [facility] with jessica gnosis right basal ganglia infarct.His impairment category is Stroke 01 - Left Body (Right Brain) (0 1.1).Pre-morbidly, Pt. was independent/mod-I in Balance, Safety Awareness, Self-Care, Locomotion, Tra nsfers Control, Sphincter Control, Communication, Endurance, and Social Cognition; and he had good Lo comotion, Safety Awareness, Balance, Social Cognition, Transfers Control, Sphincter Control, Self-Car e, Communication, and Endurance.Currently, he has deficits of Balance, Locomotion, Safety Awareness, Transfers Control, and Endurance.Pt. is now referred to [facility] for acute i n-patient rehabilitation in order to maximize patient's functional independence in activities of keshia y living, strength, ROM, and mobility.- Rehab Goal Patient has realistic goal of being discharged at assistance level 6-Sangita to reside at Home with Fam otilio/Relatives. MDM/PLAN: - Physical Therapy Gait dysfunction - to improve, our physical therapists will perform initial evaluation of pt's statu s upon admission and devise an individualized program for Gait Training, and Wheel Chair mobility Inability to transfer - to improve, our physical therapists will perform initial evaluation of pt's status upon admission and devise an individualized program for Bed mobility Need for home safety evaluation - to improve, our physical therapists will perform initial evaluatio n of pt's status upon admission and devise an individualized program for Home Evaluation Need in caregiver upon discharge - to improve, our physical therapists will perform initial evaluati on of pt's status upon admission and devise an individualized program for Caregiver Training New precaution - to improve, our physical therapists will perform initial evaluation of pt's status upon admission and devise an individualized program for Patient precaution education Edema - to improve, our physical therapists will perform initial evaluation of pt's status upon admi ssion and devise an individualized program for Elevation Training, and Lymphedema Therapy Poor balance - to improve, our physical therapists will perform initial evaluation of pt's status up on admission and devise an individualized program for Balance Training Poor endurance - to improve, our physical therapists will perform initial evaluation of pt's status upon admission and devise an individualized program for Endurance Training Weakness - to improve, our physical therapists will perform initial evaluation of pt's status upon a dmission and devise an individualized program for Aquatic Therapy, Neuromuscular Reeducation, and Str engthening Achieving independence - to improve, our physical therapists will perform initial evaluation of pt's status upon admission and devise an individualized program for Community Reintegration Activities - Occupational Therapy Need for landcare facilitator - to improve, our occupation therapists will perform initial evaluation of pt's status upon admission and devise an individualized program for Caregiver Training Weakness - to improve, our occupation therapists will perform initial evaluation of pt's status upon admission and devise an individualized program for Aquatic Therapy, Balance, Endurance, UE ROM, and UE strengthening - Other See attached MAR (Medication Administration Record) - Diet Type Continue Regular - Diet - Liquid Texture Continue Regular - Tube Feed Continue N/A - Bladder care per protocol - Weight Bearing Precaution WBAT left LE - Skin care per protocol - Diet - Solid Texture Continue Regular - Shower allowing shower for Dementia, TBI, Stroke, or others FUNCTIONAL STATUS: UPDATED AT WEEKLY TEAM CONFERENCE - Bladder Same accident frequency: 7-Ind - No accidents in the past 7 days - Bowel Same accident frequency: 7-Ind - No accidents in the past 7 days - Walking Same score based on distance walked: 3(>=150ft) - Wheelchair Same score based on distance traveled: 0(N/A) FUNCTIONAL STATUS: - Self-Care A. Eating Ind B. Grooming Sangita C. Bathing sup D. Dressing - Upper sup E. Dressing - Lower sup F. Toileting Sangita - Sphincter Control G. Bladder control Sangita H. Bowel control Sangita - Transfers Control I. Bed/Chair/Wheelchair sup J. Toilet sup K. Tub/Shower sup - Locomotion L. Walk/Wheelchair (B) Ind M. Stairs sup - Communication N. Comprehension (B) Ind O. Expression (B) Ind - Social Cognition P. Social Interaction Ind Q. Problem Solving Ind R. Memory Ind - Endurance Good - Balance Good - Safety Awareness Good QI SCORES: - Self-Care A. Eating 06-Independent B. Oral hygiene 06-Independent C. Toileting hygiene 06-Independent E. Shower/bathe self 04-Supervision or touching assistance F. Upper body dressing 04-Supervision or touching assistance G. Lower body dressing 03-Partial/moderate assistance H. Putting on/taking off footwear 04-Supervision or touching assistance - Mobility A. Roll left and right 04-Supervision or touching assistance B. Sit to lying 04-Supervision or touching assistance C. Lying to sitting on side of bed 04-Supervision or touching assistance D. Sit to stand 04-Supervision or touching assistance E. Chair/oid-nt-kmxir transfer 04-Supervision or touching assistance F. Toilet transfer 04-Supervision or touching assistance G. Car transfer 88-Not attempted due to medical condition or safety concerns I. Walk 10 feet 04-Supervision or touching assistance J. Walk 50 feet with two turns 04-Supervision or touching assistance K. Walk 150 feet 04-Supervision or touching assistance L. Walking 10 feet on uneven surfaces 88-Not attempted due to medical condition or safety concerns M. 1 step (curb) 88-Not attempted due to medical condition or safety concerns N. 4 steps 88-Not attempted due to medical condition or safety concerns O. 12 steps 88-Not attempted due to medical condition or safety concerns P. Picking up object 04-Supervision or touching assistance R. Wheel 50 feet with two turns 88-Not attempted due to medical condition or safety concerns S. Wheel 150 feet 88-Not attempted due to medical condition or safety concerns - Bladder and Bowel Bladder continence 0-Always continent Bowel continence 0-Always continent - Endurance Fair - Balance Fair - Safety Awareness Fair CURRENT [facility]. 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
[2019-03-13 06:12] LABS: Absolute Lymphocytes (CBC) 1.1 K/uL (0.7-4.9); Hematocrit 32.6 % (39.6-49.0); Lymphocytes % 12.9 % (15.3-44.8); MPV 8.4 fL (7.6-11.3); RBC Red Blood Cell Count 3.94 M/uL (4.33-5.43)
[2019-03-13 06:33] LABS: Magnesium 2.6 mg/dL (1.8-2.4); Potassium 4.8 mmol/L (3.5-5.1); Prealbumin 10.7 mg/dL (20-40); Uric Acid 7.5 mg/dL (3.5-7.2)
[2019-03-13] MEDS: INSULIN -REGULAR HUMAN 50 UNIT/0.5 ML ML SQ SCH ×4 (07:30→20:24)
[2019-03-13] MEDS: ENOXAPARIN 40 MG/0.4 ML SQ SCH (08:00)
[2019-03-13] MEDS: PROMOD 30 ML DOSE PO SCH ×2 (08:00→19:29)
[2019-03-13] MEDS: METFORMIN HCL 500 MG TAB PO SCH ×2 (08:44→17:08)
[2019-03-13] MEDS: allopurinoL 100 MG TAB PO SCH ×2 (08:45→19:28)
[2019-03-13] MEDS: FOLIC ACID 1 MG TABLET PO SCH (08:45)
[2019-03-13] MEDS: DULOXETINE 20 MG CAP PO SCH (08:45)
[2019-03-13] MEDS: CLOPIDOGREL 75 MG TABLET PO SCH (08:46)
[2019-03-13] MEDS: ASPIRIN EC 81 MG TAB PO SCH (08:46)
[2019-03-13] MEDS: THIAMINE HCL 100 MG TABLET PO SCH (08:46)
[2019-03-13] MEDS: METOPROLOL TAR 50 MG TAB PO SCH ×2 (08:47→19:29)
[2019-03-13] MEDS: lisinopriL 5 MG TAB PO SCH (08:47)
--- NOTE | 2019-03-13 09:55 | P.RH.PN ---
Estimated Length of Stay: 12 Expected Discharge Date: 03/16/19 Discharge Disposition Plan: Home Family Support: Yes Snf Goal: Mobility, Transfers, Self Care Vital Signs: Last Vital Signs Temp 98.9 F 03/13/19 07:24 Pulse 70 03/13/19 08:47 Resp 16 03/13/19 07:24 BP 147/88 H 03/13/19 08:47 Pulse Ox 94 03/13/19 07:24 Laboratory: Laboratory Last Values WBC 8.8 K/uL (4.3-10.9) 03/13/19 05:55 RBC 3.94 M/uL (4.33-5.43) L 03/13/19 05:55 Hgb 11.2 g/dL (13.6-17.9) L 03/13/19 05:55 Hct 32.6 % (39.6-49.0) L 03/13/19 05:55 MCV 82.8 fL (80-100) 03/13/19 05:55 MCH 28.5 pg (27.0-35.0) 03/13/19 05:55 MCHC 34.4 g/dL (32.0-36.0) 03/13/19 05:55 RDW 13.5 % (12.1-15.2) 03/13/19 05:55 Plt Count 385 K/uL (152-406) 03/13/19 05:55 MPV 8.4 fL (7.6-11.3) 03/13/19 05:55 Neutrophils % 75.3 % (41.7-73.7) H 03/13/19 05:55 Lymphocytes % 12.9 % (15.3-44.8) L 03/13/19 05:55 Monocytes % 9.6 % (3.3-12.3) 03/13/19 05:55 Eosinophils % 1.2 % (0-4.4) 03/13/19 05:55 Basophils % 1.0 % (0-1.3) 03/13/19 05:55 Absolute Neutrophils 6.6 K/uL (1.8-8.0) 03/13/19 05:55 Absolute Lymphocytes 1.1 K/uL (0.7-4.9) 03/13/19 05:55 Absolute Monocytes 0.8 K/uL (0.1-1.3) 03/13/19 05:55 Absolute Eosinophils 0.1 K/uL (0-0.5) 03/13/19 05:55 Absolute Basophils 0.1 K/uL (0-0.5) 03/13/19 05:55 Sodium 141 mmol/L (136-145) 03/13/19 05:55 Potassium 4.8 mmol/L (3.5-5.1) 03/13/19 05:55 Chloride 109 mmol/L (98-107) H 03/13/19 05:55 Carbon Dioxide 26 mmol/L (21-32) 03/13/19 05:55 BUN 30 mg/dL (7-18) H 03/13/19 05:55 Creatinine 1.67 mg/dL (0.55-1.3) H 03/13/19 05:55 Estimated GFR 45 mL/min (=/>90) L 03/13/19 05:55 Glucose 122 mg/dL (74-106) H 03/13/19 05:55 POC Glucose 111 mg/dl (65-120) 03/13/19 07:05 Lactic Acid 1.2 mmol/L (0.4-2.0) 03/09/19 10:39 Uric Acid 7.5 mg/dL (3.5-7.2) H 03/13/19 05:55 Calcium 9.1 mg/dL (8.5-10.1) 03/13/19 05:55 Magnesium 2.6 mg/dL (1.8-2.4) H 03/13/19 05:55 Total Bilirubin 1.7 mg/dL (0.2-1.0) H 03/09/19 10:39 AST 59 U/L (15-37) H 03/09/19 10:39 ALT 56 U/L (12-78) 03/09/19 10:39 Alkaline Phosphatase 320 U/L (45-117) H 03/09/19 10:39 Serum Total Protein 8.9 g/dL (6.4-8.2) H 03/09/19 10:39 Albumin 3.0 g/dL (3.4-5.0) L 03/13/19 05:55 Globulin 5.5 g/dL (2.3-3.5) H 03/09/19 10:39 Albumin/Globulin Ratio 0.6 (1.1-1.8) L 03/09/19 10:39 Prealbumin 10.7 mg/dL (20-40) L 03/13/19 05:55 Procalcitonin 0.28 ng/mL (<0.50) 03/09/19 10:39 Vancomycin Trough 9.7 ug/mL (5.0-20.0) 03/06/19 12:09 Weight: 213 lb 6.4 oz Wound Present: No Closed Surgical Incision Present: No Negative Pressure Wound Therapy Present: No Physician Update: Labs reviewed and has chronic renal insufficiency. His has slowly improving left arm strength. His uric acid level is increased to 7.5. Will increase allopurinol to 100 mg twice daily. Medical Issues: Patient is always continent with bladder and bowel Summary: Patient's care plan and fci goals have been reviewed and revised as necessary. Please see the Rehabilitation Signature page for all necessary signatures.
[2019-03-13] MEDS ORDERED: lisinopriL 5 MG TAB PO ONE (11:00)
[2019-03-13] MEDS: APIXABAN 2.5 MG TABLET PO SCH ×2 (11:05→19:27)
--- NOTE | 2019-03-13 15:13 | FAST ---
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 Ervin Olivas M.D. ADMISSION DIAGNOSIS: - Stroke 01 - Left Body (Right Brain) (01.1) right basal ganglia infarct. EATING: Not assessed/no information CODE: - ORAL HYGIENE: ORAL HYGIENE - STEP 1: Does the patient complete the activity by him/herself with no assistance (physical, verbal/nonverbal cueing, setup/clean-up)? Yes. 1. [id number] ADMISSION PERFORMANCE: Independent CODE: 06 TOILETING HYGIENE: Not assessed/no information CODE: - BATHING: SHOWER/BATHE SELF - STEP 1: Does the patient complete the activity by him/herself with no assistance (physical, verbal/nonverbal cueing, setup/clean-up)? Yes. 1. [id number] ADMISSION PERFORMANCE: Independent CODE: 06 DRESSING - UPPER BODY: DRESSING - UPPER BODY - STEP 1: Does the patient complete the activity by him/herself with no assistance (physical, verbal/nonverbal cueing, setup/clean-up)? Yes. 1. ADMISSION PERFORMANCE: Independent CODE: 06 DRESSING - LOWER BODY: DRESSING - LOWER BODY - STEP 1: Does the patient complete the activity by him/herself with no assistance (physical, verbal/nonverbal cueing, setup/clean-up)? Yes. 1. [id number] ADMISSION PERFORMANCE: Independent CODE: 06 PUTTING ON/TAKING OFF FOOTWEAR: FOOTWEAR - STEP 1: Does the patient complete the activity by him/herself with no assistance (physical, verbal/nonverbal cueing, setup/clean-up)? Yes. 1. [id number] ADMISSION PERFORMANCE: Independent CODE: 06 DOES THE PATIENT USE A WHEELCHAIR/SCOOTER? CODE: EXPR INDICATE THE TYPE OF WHEELCHAIR/SCOOTER USED: CODE: EXPR INDICATE THE TYPE OF WHEELCHAIR/SCOOTER USED: CODE: EXPR BLADDER AND BOWEL: CODE: EXPR CODE: EXPR SIGNATURE PANEL: The following modified sections: 1. [id number] Admission Performance, 1. [id number] Admission Performance, 1. [id number] Admission Performance, 1. [id number] Admission Performance, 1. [id number] Admission Performance were [electronically] signed by GWEN Nino on SatMar 13 2019 15:12:50 GMT-0600 (Central Standard Time)
[2019-03-13] MEDS: lisinopriL 10 MG TAB PO SCH (19:27)
[2019-03-13] MEDS: ATORVASTATIN 40 MG TAB PO SCH (20:24)
[2019-03-13] MEDS: MELATONIN 3 MG TABLET PO SCH (20:24)
[2019-03-13] MEDS: FENOFIBRATE 48 MG TAB PO SCH (20:26)
[2019-03-13] MEDS: TRAMADOL HCL 50 MG TAB PO PRN (23:27)
--- NOTE | 2019-03-14 02:20 | FAST ---
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 Ervin Olivas M.D. ADMISSION DIAGNOSIS: - Stroke 01 - Left Body (Right Brain) (01.1) right basal ganglia infarct. EATING: Not assessed/no information CODE: - ORAL HYGIENE: ORAL HYGIENE - STEP 1: Does the patient complete the activity by him/herself with no assistance (physical, verbal/nonverbal cueing, setup/clean-up)? Yes. 1. [id number] ADMISSION PERFORMANCE: Independent CODE: 06 TOILETING HYGIENE: TOILETING HYGIENE - STEP 1: Does the patient complete the activity by him/herself with no assistance (physical, verbal/nonverbal cueing, setup/clean-up)? Yes. 1. [id number] ADMISSION PERFORMANCE: Independent CODE: 06 BATHING: Not assessed/no information CODE: - DRESSING - UPPER BODY: Not assessed/no information CODE: - DRESSING - LOWER BODY: Not assessed/no information CODE: - PUTTING ON/TAKING OFF FOOTWEAR: Not assessed/no information CODE: - ROLL LEFT AND RIGHT: ROLL LEFT AND RIGHT - STEP 1: Does the patient complete the activity by him/herself with no assistance (physical, verbal/nonverbal cueing, setup/clean-up)? Yes. 1. [id number] ADMISSION PERFORMANCE: Independent CODE: 06 SIT TO LYING: SIT TO LYING - STEP 1: Does the patient complete the activity by him/herself with no assistance (physical, verbal/nonverbal cueing, setup/clean-up)? Yes. 1. [id number] ADMISSION PERFORMANCE: Independent CODE: 06 LYING TO SITTING: LYING TO SITTING ON SIDE OF BED - STEP 1: Does the patient complete the activity by him/herself with no assistance (physical, verbal/nonverbal cueing, setup/clean-up)? Yes. 1. [id number] ADMISSION PERFORMANCE: Independent CODE: 06 SIT TO STAND: SIT TO STAND - STEP 1: Does the patient complete the activity by him/herself with no assistance (physical, verbal/nonverbal cueing, setup/clean-up)? Yes. 1. [id number] ADMISSION PERFORMANCE: Independent CODE: 06 TRANSFERS: BED, CHAIR: CHAIR/[id number] TRANSFER - STEP 1: Does the patient complete the activity by him/herself with no assistance (physical, verbal/nonverbal cueing, setup/clean-up)? Yes. 1. [id number] ADMISSION PERFORMANCE: Independent CODE: 06 TRANSFER TOILET: TOILET TRANSFER - STEP 1: Does the patient complete the activity by him/herself with no assistance (physical, verbal/nonverbal cueing, setup/clean-up)? Yes. 1. [id number] ADMISSION PERFORMANCE: Independent CODE: 06 TRANSFERS: CAR: Not assessed/no information CODE: - WALK 10 FEET: Not assessed/no information CODE: - 1 STEP (CURB): Not assessed/no information CODE: - PICKING UP OBJECT: Not assessed/no information CODE: - DOES THE PATIENT USE A WHEELCHAIR/SCOOTER? CODE: EXPR WHEEL 50 FEET WITH TWO TURNS: Not assessed/no information CODE: - INDICATE THE TYPE OF WHEELCHAIR/SCOOTER USED: CODE: EXPR WHEEL 150 FEET: Not assessed/no information CODE: - INDICATE THE TYPE OF WHEELCHAIR/SCOOTER USED: CODE: EXPR BLADDER AND BOWEL: H350. BLADDER CONTINENCE (3-DAY ASSESSMENT PERIOD): Always continent (no documented incontinence) CODE: 0 H400. BOWEL CONTINENCE (3-DAY ASSESSMENT PERIOD): Always continent CODE: 0
[2019-03-14 05:37] VITALS: BMI 34.5
[2019-03-14] MEDS: INSULIN -REGULAR HUMAN 50 UNIT/0.5 ML ML SQ SCH ×4 (06:53→19:36)
[2019-03-14] MEDS: PROMOD 30 ML DOSE PO SCH ×2 (08:00→19:22)
[2019-03-14] MEDS: METFORMIN HCL 500 MG TAB PO SCH ×2 (08:19→16:30)
[2019-03-14] MEDS: CLOPIDOGREL 75 MG TABLET PO SCH (08:19)
[2019-03-14] MEDS: THIAMINE HCL 100 MG TABLET PO SCH (08:20)
[2019-03-14] MEDS: FOLIC ACID 1 MG TABLET PO SCH (08:20)
[2019-03-14] MEDS: APIXABAN 2.5 MG TABLET PO SCH ×2 (08:20→19:21)
[2019-03-14] MEDS: METOPROLOL TAR 50 MG TAB PO SCH ×2 (08:21→19:20)
[2019-03-14] MEDS: lisinopriL 10 MG TAB PO SCH ×2 (08:22→19:21)
[2019-03-14] MEDS: DULOXETINE 20 MG CAP PO SCH (08:22)
[2019-03-14] MEDS: allopurinoL 100 MG TAB PO SCH ×2 (08:22→19:21)
[2019-03-14] MEDS: ASPIRIN EC 81 MG TAB PO SCH (08:22)
--- NOTE | 2019-03-14 10:53 | P.PN ---
Subjective Date of Service: 03/14/19 Remains in good spirit. Limited ROM on LUE No new complaints Physical Examination - Vital Signs Temperature: 97.6 F Blood Pressure: 141/88 Pulse: 65 Respirations: 18 Pulse Ox (%): 99 - Physical Exam General: Alert, In no apparent distress HEENT: Atraumatic, PERRLA, EOMI Neck: Supple, JVD not distended Respiratory: Clear to auscultation bilaterally, Normal air movement Cardiovascular: Regular rate/rhythm, Normal S1 S2 Gastrointestinal: Normal bowel sounds, No tenderness Musculoskeletal: No tenderness Integumentary: No rashes Neurological: Normal speech, Normal affect, Other (Decrease ROM on L), Abnormal tone Lymphatics: No axilla or inguinal lymphadenopathy - Studies Microbiology Data (last 24 hrs): 03/09/19 10:39 Blood - Blood Aerobic Blood Culture - Final No growth in 5 days. 03/09/19 10:39 Blood - Blood Anaerobic Blood Culture - Final No growth in 5 days. Medications List Reviewed: Yes Assessment And Plan - Plan Assessment And Plan: A 44-year-old male with: 1. Acute cerebrovascular accident, right basal ganglia. Continue with aspirin and statin. 2. Hypertriglyceridemia. Continue statin. 3. Fever. Afebrile now. IV antibiotics discontinued. Cultures studies from recent admission did not show any growth. Resolved -now with leukocytosis, no acute infection. monitor VS. -repeat lab is stable 4. Hypertensive emergency. Blood pressure meds still being adjusted to optimize BP - Monitor BP closelu 5. Chronic kidney disease stage 3. Monitor creatinine level 6. Diabetes mellitus type 2 with hyperglycemia. Adjust to aggressive sliding scale insulin and monitor blood glucose levels. Has been started on metformin. A1c is only 5.7%. 7. Obesity, BMI of 32. 8. Left wrist pain, stable. Continue with splint when not having PT. 9. Generalized arthritis. Patient needs further workup to rule out rheumatoid arthritis. 10. Gout. Continue allopurinol. 11. Adjustment disorder with depressed mood. Started on SSRI 12. Deep vein thrombosis prophylaxis, addressed. Continue with Lovenox. Thank you for the consult.
[2019-03-14] MEDS: TRAMADOL HCL 50 MG TAB PO PRN ×2 (16:44→23:08)
[2019-03-14] MEDS: ATORVASTATIN 40 MG TAB PO SCH (19:21)
[2019-03-14] MEDS: FENOFIBRATE 48 MG TAB PO SCH (19:21)
[2019-03-14] MEDS: MELATONIN 3 MG TABLET PO SCH (19:22)
[2019-03-15] MEDS: INSULIN -REGULAR HUMAN 50 UNIT/0.5 ML ML SQ SCH ×4 (06:54→19:47)
[2019-03-15] MEDS: PROMOD 30 ML DOSE PO SCH ×2 (08:00→19:26)
[2019-03-15] MEDS: ASPIRIN EC 81 MG TAB PO SCH (08:16)
[2019-03-15] MEDS: FOLIC ACID 1 MG TABLET PO SCH (08:16)
[2019-03-15] MEDS: allopurinoL 100 MG TAB PO SCH ×2 (08:16→19:26)
[2019-03-15] MEDS: METFORMIN HCL 500 MG TAB PO SCH ×2 (08:17→16:44)
[2019-03-15] MEDS: METOPROLOL TAR 50 MG TAB PO SCH ×2 (08:17→19:25)
[2019-03-15] MEDS: CLOPIDOGREL 75 MG TABLET PO SCH (08:17)
[2019-03-15] MEDS: APIXABAN 2.5 MG TABLET PO SCH ×2 (08:18→19:26)
[2019-03-15] MEDS: THIAMINE HCL 100 MG TABLET PO SCH (08:18)
[2019-03-15] MEDS: lisinopriL 10 MG TAB PO SCH ×2 (08:18→19:26)
[2019-03-15] MEDS: DULOXETINE 20 MG CAP PO SCH (08:18)
[2019-03-15] MEDS: FENOFIBRATE 48 MG TAB PO SCH (19:26)
[2019-03-15] MEDS: ATORVASTATIN 40 MG TAB PO SCH (19:26)
[2019-03-15] MEDS: MELATONIN 3 MG TABLET PO SCH (19:27)
[2019-03-15] MEDS: TRAMADOL HCL 50 MG TAB PO PRN (19:28)
[2019-03-16] MEDS: INSULIN -REGULAR HUMAN 50 UNIT/0.5 ML ML SQ SCH ×4 (07:30→20:47)
[2019-03-16] MEDS: PROMOD 30 ML DOSE PO SCH ×2 (08:00→19:50)
[2019-03-16] MEDS: allopurinoL 100 MG TAB PO SCH ×2 (08:13→19:50)
[2019-03-16] MEDS: FOLIC ACID 1 MG TABLET PO SCH (08:13)
[2019-03-16] MEDS: METOPROLOL TAR 50 MG TAB PO SCH ×2 (08:13→19:49)
[2019-03-16] MEDS: APIXABAN 2.5 MG TABLET PO SCH ×2 (08:14→19:49)
[2019-03-16] MEDS: THIAMINE HCL 100 MG TABLET PO SCH (08:14)
[2019-03-16] MEDS: METFORMIN HCL 500 MG TAB PO SCH ×2 (08:14→16:57)
[2019-03-16] MEDS: lisinopriL 10 MG TAB PO SCH ×2 (08:14→19:49)
[2019-03-16] MEDS: CLOPIDOGREL 75 MG TABLET PO SCH (08:14)
[2019-03-16] MEDS: ASPIRIN EC 81 MG TAB PO SCH (08:14)
[2019-03-16] MEDS: DULOXETINE 20 MG CAP PO SCH (08:14)
[2019-03-16 14:00] VITALS: TEMP 97.5
--- NOTE | 2019-03-16 14:39 | FAST ---
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 Ervin Olivas M.D. ADMISSION DIAGNOSIS: - Stroke 01 - Left Body (Right Brain) (01.1) right basal ganglia infarct. EATING: Not assessed/no information CODE: - ORAL HYGIENE: ORAL HYGIENE - STEP 1: Does the patient complete the activity by him/herself with no assistance (physical, verbal/nonverbal cueing, setup/clean-up)? Yes. 1. [id number] ADMISSION PERFORMANCE: Independent CODE: 06 TOILETING HYGIENE: Not assessed/no information CODE: - BATHING: SHOWER/BATHE SELF - STEP 1: Does the patient complete the activity by him/herself with no assistance (physical, verbal/nonverbal cueing, setup/clean-up)? Yes. 1. [id number] ADMISSION PERFORMANCE: Independent CODE: 06 DRESSING - UPPER BODY: DRESSING - UPPER BODY - STEP 1: Does the patient complete the activity by him/herself with no assistance (physical, verbal/nonverbal cueing, setup/clean-up)? Yes. 1. ADMISSION PERFORMANCE: Independent CODE: 06 DRESSING - LOWER BODY: DRESSING - LOWER BODY - STEP 1: Does the patient complete the activity by him/herself with no assistance (physical, verbal/nonverbal cueing, setup/clean-up)? Yes. 1. [id number] ADMISSION PERFORMANCE: Independent CODE: 06 PUTTING ON/TAKING OFF FOOTWEAR: FOOTWEAR - STEP 1: Does the patient complete the activity by him/herself with no assistance (physical, verbal/nonverbal cueing, setup/clean-up)? Yes. 1. [id number] ADMISSION PERFORMANCE: Independent CODE: 06 DOES THE PATIENT USE A WHEELCHAIR/SCOOTER? CODE: EXPR INDICATE THE TYPE OF WHEELCHAIR/SCOOTER USED: CODE: EXPR INDICATE THE TYPE OF WHEELCHAIR/SCOOTER USED: CODE: EXPR BLADDER AND BOWEL: CODE: EXPR CODE: EXPR SIGNATURE PANEL: The following modified sections: 1. [id number] Admission Performance, 1. [id number] Admission Performance, 1. [id number] Admission Performance, 1. YZ6015e Admission Performance, 1. [id number] Admission Performance were [electronically] signed by GWEN Nino on SatMar 16 2019 14:38:08 GMT-0600 (Central Standard Time)
[2019-03-16] MEDS: ATORVASTATIN 40 MG TAB PO SCH (19:49)
[2019-03-16] MEDS: FENOFIBRATE 48 MG TAB PO SCH (19:49)
[2019-03-16] MEDS: MELATONIN 3 MG TABLET PO SCH (19:50)
[2019-03-17] MEDS: INSULIN -REGULAR HUMAN 50 UNIT/0.5 ML ML SQ SCH ×2 (07:30→11:30)
[2019-03-17] MEDS: PROMOD 30 ML DOSE PO SCH (08:00)
[2019-03-17] MEDS: CLOPIDOGREL 75 MG TABLET PO SCH (08:07)
[2019-03-17] MEDS: ASPIRIN EC 81 MG TAB PO SCH (08:07)
[2019-03-17] MEDS: THIAMINE HCL 100 MG TABLET PO SCH (08:10)
[2019-03-17] MEDS: allopurinoL 100 MG TAB PO SCH (08:10)
[2019-03-17] MEDS: APIXABAN 2.5 MG TABLET PO SCH (08:10)
[2019-03-17] MEDS: DULOXETINE 20 MG CAP PO SCH (08:10)
[2019-03-17] MEDS: METOPROLOL TAR 50 MG TAB PO SCH (08:11)
[2019-03-17] MEDS: METFORMIN HCL 500 MG TAB PO SCH (08:11)
[2019-03-17] MEDS: FOLIC ACID 1 MG TABLET PO SCH (08:12)
[2019-03-17] MEDS: lisinopriL 10 MG TAB PO SCH (10:01)
[2019-03-17 10:04] VITALS: BP 144/92
--- NOTE | 2019-03-17 14:21 | FAST ---
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 Ervin Olivas M.D. ADMISSION DIAGNOSIS: - Stroke 01 - Left Body (Right Brain) (01.1) right basal ganglia infarct. ROLL LEFT AND RIGHT: ROLL LEFT AND RIGHT - STEP 1: Does the patient complete the activity by him/herself with no assistance (physical, verbal/nonverbal cueing, setup/clean-up)? Yes. 1. [id number] ADMISSION PERFORMANCE: Independent CODE: 06 SIT TO LYING: SIT TO LYING - STEP 1: Does the patient complete the activity by him/herself with no assistance (physical, verbal/nonverbal cueing, setup/clean-up)? Yes. 1. [id number] ADMISSION PERFORMANCE: Independent CODE: 06 LYING TO SITTING: LYING TO SITTING ON SIDE OF BED - STEP 1: Does the patient complete the activity by him/herself with no assistance (physical, verbal/nonverbal cueing, setup/clean-up)? Yes. 1. [id number] ADMISSION PERFORMANCE: Independent CODE: 06 SIT TO STAND: SIT TO STAND - STEP 1: Does the patient complete the activity by him/herself with no assistance (physical, verbal/nonverbal cueing, setup/clean-up)? Yes. 1. [id number] ADMISSION PERFORMANCE: Independent CODE: 06 TRANSFERS: BED, CHAIR: CHAIR/[id number] TRANSFER - STEP 1: Does the patient complete the activity by him/herself with no assistance (physical, verbal/nonverbal cueing, setup/clean-up)? Yes. 1. [id number] ADMISSION PERFORMANCE: Independent CODE: 06 TRANSFER TOILET: TOILET TRANSFER - STEP 1: Does the patient complete the activity by him/herself with no assistance (physical, verbal/nonverbal cueing, setup/clean-up)? Yes. 1. [id number] ADMISSION PERFORMANCE: Independent CODE: 06 TRANSFERS: CAR: CAR TRANSFER - STEP 1: Does the patient complete the activity by him/herself with no assistance (physical, verbal/nonverbal cueing, setup/clean-up)? Yes. 1. [id number] ADMISSION PERFORMANCE: Independent CODE: 06 WALK 10 FEET: WALK 10 FEET - STEP 1: Does the patient complete the activity by him/herself with no assistance (physical, verbal/nonverbal cueing, setup/clean-up)? Yes. 1. [id number] ADMISSION PERFORMANCE: Independent CODE: 06 WALK 50 FEET: WALK 50 FEET - STEP 1: Does the patient complete the activity by him/herself with no assistance (physical, verbal/nonverbal cueing, setup/clean-up)? Yes. 1. [id number] ADMISSION PERFORMANCE: Independent CODE: 06 WALK 150 FEET: WALK 150 FEET - STEP 1: Does the patient complete the activity by him/herself with no assistance (physical, verbal/nonverbal cueing, setup/clean-up)? Yes. 1. [id number] ADMISSION PERFORMANCE: Independent CODE: 06 WALK 10 FEET UNEVEN: WALKING 10 FEET ON UNEVEN SURFACES - STEP 1: Does the patient complete the activity by him/herself with no assistance (physical, verbal/nonverbal cueing, setup/clean-up)? Yes. 1. [id number] ADMISSION PERFORMANCE: Independent CODE: 06 1 STEP (CURB): 1 STEP CURB - STEP 1: Does the patient complete the activity by him/herself with no assistance (physical, verbal/nonverbal cueing, setup/clean-up)? Yes. 1. [id number] ADMISSION PERFORMANCE: Independent CODE: 06 4 STEPS: 4 STEPS - STEP 1: Does the patient complete the activity by him/herself with no assistance (physical, verbal/nonverbal cueing, setup/clean-up)? Yes. 1. [id number] ADMISSION PERFORMANCE: Independent CODE: 06 12 STEPS: 12 STEPS - STEP 1: Does the patient complete the activity by him/herself with no assistance (physical, verbal/nonverbal cueing, setup/clean-up)? Yes. 1. [id number] ADMISSION PERFORMANCE: Independent CODE: 06 PICKING UP OBJECT: PICKING UP OBJECT - STEP 1: Does the patient complete the activity by him/herself with no assistance (physical, verbal/nonverbal cueing, setup/clean-up)? Yes. 1. [id number] ADMISSION PERFORMANCE: Independent CODE: 06 DOES THE PATIENT USE A WHEELCHAIR/SCOOTER? Q1. DOES THE PATIENT USE A WHEELCHAIR/SCOOTER?: No CODE: 0 INDICATE THE TYPE OF WHEELCHAIR/SCOOTER USED: CODE: EXPR INDICATE THE TYPE OF WHEELCHAIR/SCOOTER USED: CODE: EXPR BLADDER AND BOWEL: CODE: EXPR CODE: EXPR SIGNATURE PANEL: The following modified sections: 1. [id number] Admission Performance, 1. [id number] Admission Performance, 1. [id number] Admission Performance, 1. FM9018C Admission Performance, 1. [id number] Admission Performance, 1. [id number] Admission Performance, 1. TK2747F Admission Performance, 1. YD1744G Admission Performance , 1. [id number] Admission Performance, 1. GL1392X Admission Performance, 1. DE2740X Admission Performanc e, 1. RA3279J Admission Performance, 1. MA0244M Admission Performance, 1. [id number] Admission Performan ce, 1. JR3479A Admission Performance, Q1. Does the patient use a wheelchair/scooter? were [electronic ally] signed by Diana Rizvi PTA on SatMar 17 2019 14:20:45 T-0600 (Central Standard Time)
--- NOTE | 2019-03-17 18:36 | R.PN ---
ENCOUNTER DATE AND TIME: 03/17/2019 18:29 (REIMBURSEMENT REP) NAME AARON BARAJAS DATE OF : 1975 DATE OF ADMISSION: 03/05/2019 16:44 (REIMBURSEMENT REP) right basal ganglia infarctCHIEF COMPLAINT: Stroke with left arm weakness. SUBJECTIVE: Pt denied any depression. Pt denied any Shortness of Breath. He had a low grade fever. His procalcitonin and lactate were normal. He is doing well with physical, occupational and speech therapy. Blood work shows chronic renal insufficiency and uncontrolled diabet es mellitus. Low dosage metformin 250 mg twice daily, aspirin 81 mg, plavix 75 mg and lipitor 40 mg d aily. Ambulated multiple 1000' with independence without an assistive device. Up and down 25 steps with ind ependence. His left arm, forearm and hand strength is improving slowly but is still moderately to sev erely weak. He will be discharged home today with outpatient rehabilitation. Glucose 95 to 152. He is on metformin 250 mg bid and mild insulin sliding scale. VITAL SIGNS Temperature: 97.5 F SBP/DBP: 139/83 Pulse: 71 Resp: 16 MEDICATION ALLERGIES: acetaminophen hydrocodone ENVIRONMENTAL ALLERGIES: - Substance Allergies None Known - Other Allergies None Known NURSING: - Shower allowing shower - Bladder care per protocol - Skin care per protocol PRECAUTIONS: - Weight Bearing Precaution WBAT left LE ACTIVITIES OOB only with supervision THERAPIES: - Occupational Therapy Cognitive Retraining. Visual Perceptual Training. - Dietary and Nutrition Adequate Nutrition. Nutritional Education. Nutritional Supplements. - Speech Therapy Cognitive Training. Expressive Language Skills. Memory Strategies. Receptive Language Skills. Speech Intelligibility Training. PHYSICAL EXAM - Gen Alert and awake Sitting edge of bed In distress secondary to pain Oriented to: person, time, and place - Skin No skin breakdown. Normacephalic - Eyes No abnormalities - ENMT No abnormalities - Neck No abnormalities - CVS RRR - Chest No abnormalities - Resp Clear to auscultation - Abd Soft - GI Non distended Deferred - No abnormalities - Ext Mild left upper extremity edema. - MSK 1-2/5 weakness in left upper and 4/5 weakness in left lower extremity. - Neuro 1-2/5 weakness in left upper and 4/5 weakness in left lower extremity. - Psych No abnormalities ASSESSMENT: Pt. is a 44 yo Right-handed male.On 03/01/2019 Pt. presented to [facility] with sudden onset of left-side weakness.On 03/01/2019 he was admitted to [facility] with jessica gnosis right basal ganglia infarct.His impairment category is Stroke 01 - Left Body (Right Brain) (0 1.1).Pre-morbidly, Pt. was independent/mod-I in Balance, Safety Awareness, Self-Care, Locomotion, Tra nsfers Control, Sphincter Control, Communication, Endurance, and Social Cognition; and he had good Lo comotion, Safety Awareness, Balance, Social Cognition, Transfers Control, Sphincter Control, Self-Car e, Communication, and Endurance.Currently, he has deficits of Balance, Locomotion, Safety Awareness, Transfers Control, and Endurance.Pt. is now referred to [facility] for acute i n-patient rehabilitation in order to maximize patient's functional independence in activities of keshia y living, strength, ROM, and mobility.- Rehab Goal Patient has realistic goal of being discharged at assistance level 6-Sangita to reside at Home with Fam otilio/Relatives. MDM/PLAN: - Physical Therapy Gait dysfunction - to improve, our physical therapists will perform initial evaluation of pt's statu s upon admission and devise an individualized program for Gait Training, and Wheel Chair mobility Inability to transfer - to improve, our physical therapists will perform initial evaluation of pt's status upon admission and devise an individualized program for Bed mobility Need for home safety evaluation - to improve, our physical therapists will perform initial evaluatio n of pt's status upon admission and devise an individualized program for Home Evaluation Need in caregiver upon discharge - to improve, our physical therapists will perform initial evaluati on of pt's status upon admission and devise an individualized program for Caregiver Training New precaution - to improve, our physical therapists will perform initial evaluation of pt's status upon admission and devise an individualized program for Patient precaution education Edema - to improve, our physical therapists will perform initial evaluation of pt's status upon admi ssion and devise an individualized program for Elevation Training, and Lymphedema Therapy Poor balance - to improve, our physical therapists will perform initial evaluation of pt's status up on admission and devise an individualized program for Balance Training Poor endurance - to improve, our physical therapists will perform initial evaluation of pt's status upon admission and devise an individualized program for Endurance Training Weakness - to improve, our physical therapists will perform initial evaluation of pt's status upon a dmission and devise an individualized program for Aquatic Therapy, Neuromuscular Reeducation, and Str engthening Achieving independence - to improve, our physical therapists will perform initial evaluation of pt's status upon admission and devise an individualized program for Community Reintegration Activities - Occupational Therapy 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 - to improve, our occupation therapists will perform initial evaluation of pt's status upon admission and devise an individualized program for Caregiver Training Weakness - to improve, our occupation therapists will perform initial evaluation of pt's status upon admission and devise an individualized program for Aquatic Therapy, Balance, Endurance, UE ROM, and UE strengthening - Other See attached MAR (Medication Administration Record) - Diet Type Continue Regular - Diet - Liquid Texture Continue Regular - Tube Feed Continue N/A - Bladder care per protocol - Weight Bearing Precaution WBAT left LE - Skin care per protocol - Diet - Solid Texture Continue Regular - Shower allowing shower for Dementia, TBI, Stroke, or others FUNCTIONAL STATUS: UPDATED AT WEEKLY TEAM CONFERENCE - Bladder Same accident frequency: 7-Ind - No accidents in the past 7 days - Bowel Same accident frequency: 7-Ind - No accidents in the past 7 days - Walking Same score based on distance walked: 3(>=150ft) - Wheelchair Same score based on distance traveled: 0(N/A) FUNCTIONAL STATUS: - Self-Care A. Eating Ind B. Grooming Sangita C. Bathing sup D. Dressing - Upper sup E. Dressing - Lower sup F. Toileting Sangita - Sphincter Control G. Bladder control Sangita H. Bowel control Sangita - Transfers Control I. Bed/Chair/Wheelchair sup J. Toilet sup K. Tub/Shower sup - Locomotion L. Walk/Wheelchair (B) Ind M. Stairs sup - Communication N. Comprehension (B) Ind O. Expression (B) Ind - Social Cognition P. Social Interaction Ind Q. Problem Solving Ind R. Memory Ind - Endurance Good - Balance Good - Safety Awareness Good QI SCORES: - Self-Care A. Eating 06-Independent B. Oral hygiene 06-Independent C. Toileting hygiene 06-Independent E. Shower/bathe self 04-Supervision or touching assistance F. Upper body dressing 04-Supervision or touching assistance G. Lower body dressing 03-Partial/moderate assistance H. Putting on/taking off footwear 04-Supervision or touching assistance - Mobility A. Roll left and right 04-Supervision or touching assistance B. Sit to lying 04-Supervision or touching assistance C. Lying to sitting on side of bed 04-Supervision or touching assistance D. Sit to stand 04-Supervision or touching assistance E. Chair/gym-ub-swnuy transfer 04-Supervision or touching assistance F. Toilet transfer 04-Supervision or touching assistance G. Car transfer 88-Not attempted due to medical condition or safety concerns I. Walk 10 feet 04-Supervision or touching assistance J. Walk 50 feet with two turns 04-Supervision or touching assistance K. Walk 150 feet 04-Supervision or touching assistance L. Walking 10 feet on uneven surfaces 88-Not attempted due to medical condition or safety concerns M. 1 step (curb) 88-Not attempted due to medical condition or safety concerns N. 4 steps 88-Not attempted due to medical condition or safety concerns O. 12 steps 88-Not attempted due to medical condition or safety concerns P. Picking up object 04-Supervision or touching assistance R. Wheel 50 feet with two turns 88-Not attempted due to medical condition or safety concerns S. Wheel 150 feet 88-Not attempted due to medical condition or safety concerns - Bladder and Bowel Bladder continence 0-Always continent Bowel continence 0-Always continent - Endurance Fair - Balance Fair - Safety Awareness Fair CURRENT FUNC. DEFICITS: Mobility, Endurance, Balance, Safety Awareness, and Self-Care SIGNATURE PANEL: (REIMBURSEMENT REP)
--- NOTE | 2019-03-17 19:59 | P.PN ---
Date of Service: 03/17/19 Patient being discharged today. He is doing well. No complaints. A/P Acute CVA HTN DM2
[2019-03-18] MEDS ORDERED: ASPIRIN EC 81 MG TAB PO SCH (08:00)
== END 2019-03-17 17:00 | disposition home or self-care (01) | DRG 57 ==
LOC: 5TH 16:44
PROVIDERS: ADMIT Psychiatry & Neurology Neurology with Special Qualifications in Child Neurology; ATTEND Psychiatry & Neurology Neurology with Special Qualifications in Child Neurology
DX: I69.354 Hemiplegia and hemiparesis following cerebral infarction affecting left non-dominant side (principal); I16.1 Hypertensive emergency; E78.1 Pure hyperglyceridemia; N18.3 Chronic kidney disease, stage 3 (moderate); E11.65 Type 2 diabetes mellitus with hyperglycemia; I12.9 Hypertensive chronic kidney disease with stage 1 through stage 4 chronic kidney disease, or unspecified chronic kidney disease; E66.9 Obesity, unspecified; M25.532 Pain in left wrist; M10.9 Gout, unspecified; M06.9 Rheumatoid arthritis, unspecified; Z68.36 Body mass index [BMI] 36.0-36.9, adult; R50.9 Fever, unspecified
CPT/HCPCS: 36415; 80048; 80053; 80202; 82040; 82947; 83605; 83735; 84134; 84145; 84550; 85025; 87040; 97110; 97112; 97116; 97161; 97167; 97530; 97542; J0360; J0692; J1200; J1650; J7040

== ENCOUNTER 2019-11-16 12:48 | Emergency (ER) | payer OTHER ==
--- NOTE | 2019-11-16 14:19 | ER ---
Nurse's Notes [facility] Name: Joselyn Lerner Jr Age: 44 yrs Sex: Male : 1975 Arrival Date: 11/16/2019 Time: 12:52 Bed 16 Private MD: Diagnosis: Sprain of other specified parts of left knee;Avulsion fracture of tibia Presentation: 11/15 13:04 Chief complaint: Patient states: left knee pain and swelling since Saturday, knee iw buckled while getting out of the shower. 13:05 Coronavirus screen: Client denies travel out of the [place] in the last 14 days. At this ll1 time, the client does not indicate any symptoms associated with coronavirus-19. Ebola Screen: Patient denies travel to an Ebola-affected area in the 21 days before illness onset. Initial Sepsis Screen: Does the patient meet any 2 criteria? No. Patient's initial sepsis screen is negative. Initial Sepsis Screen: Does the patient have a suspected source of infection? No. Patient's initial sepsis screen is negative. Risk Assessment: Do you want to hurt yourself or someone else? Patient reports no desire to harm self or others. Onset of symptoms was November 12, 2019. 13:05 Method Of Arrival: Wheelchair ll1 13:05 Acuity: DANIELLE 4 ll1 Historical: - Allergies: 13:05 Hydrocodone-Acetaminophen; ll1 13:05 Tylenol; ll1 - Home Meds: 13:16 amlodipine 5 mg tab 1 tab once daily [Active]; metoprolol tartrate 50 mg Oral tab 1 tab iw 2 times per day [Active]; fenofibrate oral 48 mg oral once daily [Active]; allopurinol 100 mg Oral tab [Active]; clopidogrel 75 mg oral tab 1 tab once daily [Active]; lisinopril 40 mg Oral tab 1 tab once daily [Active]; atorvastatin 40 mg oral tab 1 tab once daily [Active]; - PMHx: 13:05 Hypertension; Gout; stroke; ll1 - PSHx: 13:05 Cholecystectomy; Appendectomy; ll1 - Immunization history:: Adult Immunizations up to date. - Family history:: not pertinent. - Social history:: Smoking status: Patient denies any tobacco usage or history of. - Hospitalizations: : No recent hospitalization is reported. Screenin:20 Abuse screen: Denies threats or abuse. Nutritional screening: No deficits noted. ll1 Tuberculosis screening: No symptoms or risk factors identified. Fall Risk Ambulatory Aid- Crutches/Cane/Walker (15 pts). Gait- Impaired (20 pts.). Total Roberson Fall Scale indicates Low Risk Score (25-44 pts). Fall prevention measures have been instituted. Placed close to Nursing Station Frequent Obs/Assesments occuring As available Patient and Family Educated on Fall Prevention Program and strategies. Assessment: 13:19 General: Appears in no apparent distress. Behavior is calm, cooperative. Pain: ll1 Complains of pain in left knee Quality of pain is described as aching, Pain began 5 days ago. Neuro: No deficits noted. Cardiovascular: No deficits noted. Respiratory: No deficits noted. GI: No deficits noted. Musculoskeletal: Circulation, motion, and sensation intact. Capillary refill < 3 seconds, Range of motion: intact in all extremities, Tenderness present in left knee Reports pain in left knee. 13:45 Reassessment: Patient is alert, oriented x 3, equal unlabored respirations, skin ll1 warm/dry/pink. Informed of delay in x-ray. Verbalized understanding. 14:40 Reassessment: Patient and/or family updated on plan of care and expected duration. Pain ll1 level reassessed. Patient is alert, oriented x 3, equal unlabored respirations, skin warm/dry/pink. 14:59 Musculoskeletal: Circulation, motion, and sensation intact. Capillary refill < 3 ll1 seconds, Swelling present in left knee. Vital Signs: 14:45 BP 148 / 99; Pulse 80; Resp 18; Pulse Ox 98% ; ll1 15:02 Temp 98.0; dh3 ED Course: 12:52 Patient arrived in ED. mr 12:57 Tay Berumen MD is Attending Physician. rn 12:58 Phil Flores, CRISTELA is Primary Nurse. ll1 13:04 Arm band placed on Patient placed in an exam room, on a stretcher. ll1 13:05 Triage completed. ll1 13:21 Bed in low position. Call light in reach. Side rails up X 1. Cardiac monitoring not ll1 applicable on this patient. 14:17 Dustin Morgan MD is Referral Physician. rn 14:18 XRAY Knee LEFT 3 view In Process Unspecified. EDMS 14:59 No provider procedures requiring assistance completed. Patient did not have IV access ll1 during this emergency room visit. 14:59 Knee immobilizer applied on left knee. ll1 Administered Medications: No medications were administered Outcome: 14:18 Discharge ordered by . rn 15:00 Discharged to home via wheelchair. ll1 15:00 Condition: stable 15:00 Discharge instructions given to patient, Instructed on discharge instructions, follow up and referral plans. Demonstrated understanding of instructions, follow-up care, splint care. 15:01 Patient left the ED. ll1 Signatures: Dispatcher [employer] [facility] HaroJossy danielle Irene, RN RN Tay Moser MD MD rn Herrera, [facility] Phil Flores RN RN ll1
--- NOTE | 2019-11-16 14:19 | EDPHYS ---
Physician Documentation [facility] Name: Joselyn Lerner Jr Age: 44 yrs Sex: Male : 1975 Arrival Date: 11/16/2019 Time: 12:52 Bed 16 Private MD: ED Physician Tay Berumen HPI: 11/15 13:11 This 44 yrs old Male presents to ER via Wheelchair with complaints of Knee rn Pain. 13:11 The patient presents with decreased range of motion, an injury, pain. The complaints rn affect the left knee. Onset: The symptoms/episode began/occurred 1 week(s) ago. Modifying factors: The symptoms are alleviated by remaining still, the symptoms are aggravated by movement, weight bearing, bending knee. Severity of symptoms: At their worst the symptoms were moderate, in the emergency department the symptoms are unchanged. The patient has not experienced similar symptoms in the past. REports getting out of shower, hyperextended left knee, hurting since then, limping, knee did not strike floor. . Historical: - Allergies: 13:05 Hydrocodone-Acetaminophen; ll1 13:05 Tylenol; ll1 - Home Meds: 13:16 amlodipine 5 mg tab 1 tab once daily [Active]; metoprolol tartrate 50 mg Oral tab 1 tab iw 2 times per day [Active]; fenofibrate oral 48 mg oral once daily [Active]; allopurinol 100 mg Oral tab [Active]; clopidogrel 75 mg oral tab 1 tab once daily [Active]; lisinopril 40 mg Oral tab 1 tab once daily [Active]; atorvastatin 40 mg oral tab 1 tab once daily [Active]; - PMHx: 13:05 Hypertension; Gout; stroke; ll1 - PSHx: 13:05 Cholecystectomy; Appendectomy; ll1 - Immunization history:: Adult Immunizations up to date. - Family history:: not pertinent. - Social history:: Smoking status: Patient denies any tobacco usage or history of. - Hospitalizations: : No recent hospitalization is reported. ROS: 13:11 Constitutional: Negative for fever, chills, and weight loss, Eyes: Negative for injury, rn pain, redness, and discharge, Neck: Negative for injury, pain, and swelling, Cardiovascular: Negative for chest pain, palpitations, and edema, Respiratory: Negative for shortness of breath, cough, wheezing, and pleuritic chest pain, Abdomen/GI: Negative for abdominal pain, nausea, vomiting, diarrhea, and constipation, MS/Extremity: + left knee injury and pain with decreased ROM Skin: Negative for injury, rash, and discoloration, Neuro: Negative for headache, weakness, numbness, tingling, and seizure. Exam: 13:11 Constitutional: This is a well developed, well nourished patient who is awake, alert, rn and in no acute distress. MS/ Extremity: Pulses equal, no cyanosis. Neurovascular intact. + left suprapatellar effusion with mild painful flexion. No warmth/erythema/wounds. Vital Signs: 14:45 BP 148 / 99; Pulse 80; Resp 18; Pulse Ox 98% ; ll1 15:02 Temp 98.0; dh3 MDM: 12:57 Patient medically screened. rn 14:17 Differential diagnosis: closed fracture, contusion. Data reviewed: vital signs, nurses rn notes, radiologic studies, plain films, and as a result, I will discharge patient. Counseling: I had a detailed discussion with the patient and/or guardian regarding: the historical points, exam findings, and any diagnostic results supporting the discharge/admit diagnosis, radiology results, the need for outpatient follow up, to return to the emergency department if symptoms worsen or persist or if there are any questions or concerns that arise at home. Special discussion: I discussed with the patient/guardian in detail that at this point there is no indication for admission to the hospital. It is understood, however, that if the symptoms persist or worsen the patient needs to return immediately for re-evaluation. Based on the history and exam findings, there is no indication for further emergent testing or inpatient evaluation. I discussed with the patient/guardian the need to see the orthopedic surgeon for further evaluation of the symptoms. ED course: Xray appears to show avulsion fracture, will place in knee immobilizer and have f/u with ortho.. 11/15 13:10 Order name: XRAY Knee LEFT 3 view rn 11/15 13:19 Order name: Knee Immobilizer; Complete Time: 14:45 rn Administered Medications: No medications were administered Disposition: 11/16/19 14:18 Discharged to Home. Impression: Sprain of other specified parts of left knee, Avulsion fracture of tibia. - Condition is Stable. - Discharge Instructions: Knee Effusion, Knee Immobilizer, Knee Sprain, Tibial Fracture, Adult. - Work release form, Medication Reconciliation Form, Thank You Letter, Antibiotic Education, Prescription Opioid Use form. - Follow up: Dr. Dustin Morgan; When: As needed; Reason: Recheck today's complaints, Re-evaluation by your physician. - Problem is new. - Symptoms are unchanged. Signatures: Dispatcher [employer] EDObdulia Romero RN RN iw Nieto, Roman, MD MD rn Lewis, Lynsay, RN RN ll1 Corrections: (The following items were deleted from the chart) 15:01 14:18 11/16/2019 14:18 Discharged to Home. Impression: Sprain of other specified parts ll1 of left knee; Avulsion fracture of tibia. Condition is Stable. Discharge Instructions: Knee Effusion, Knee Immobilizer, Knee Sprain. Forms are Medication Reconciliation Form, Thank You Letter, Antibiotic Education, Prescription Opioid Use. Follow up: Dr. Dustin Morgan; When: As needed; Reason: Recheck today's complaints, Re-evaluation by your physician. Problem is new. Symptoms are unchanged. rn
[2019-11-16 15:06] VITALS: BP 148/99; O2SAT 98
--- NOTE | 2019-11-16 15:31 | RAD REPORT ---
EXAM DESCRIPTION: RAD - Knee Left 3 View - 11/16/2019 2:18 pm CLINICAL HISTORY: Pain;Swelling COMPARISON: No comparisons FINDINGS: No fracture, dislocation or periosteal reaction.Small a moderate joint effusion is present . No fat fluid level seen. No joint space narrowing. Calcifications at the tibial tubercle appear chr onic. IMPRESSION: Mild to moderate joint effusion without acute bone finding identifiable. Clinical concerns for internal derangement or occult bony injury could be further assessed with MR im aging.
== END 2019-11-16 15:01 | disposition home or self-care (01) ==
LOC: ER 12:48
DX: S82.202A Unspecified fracture of shaft of left tibia, initial encounter for closed fracture (principal); S83.92XA Sprain of unspecified site of left knee, initial encounter; X58.XXXA Exposure to other specified factors, initial encounter; Y93.9 Activity, unspecified; Y92.012 Bathroom of single-family (private) house as the place of occurrence of the external cause; Z88.6 Allergy status to analgesic agent; I10 Essential (primary) hypertension
CPT/HCPCS: 99283

== ENCOUNTER 2022-11-07 11:12 | Emergency (ER) | payer BC ==
[2022-11-07 11:51] LABS: Absolute Lymphocytes (CBC) 1.5 K/uL (0.7-4.9); Hematocrit 42.9 % (39.6-49.0); Lymphocytes % 19.1 % (15.3-44.8); MPV 8.5 fL (7.6-11.3); Platelets 232 thou/uL (152-406); RBC Red Blood Cell Count 5.17 M/uL (4.33-5.43)
[2022-11-07] MEDS ORDERED: HYDRALAZINE HCL 20 MG/ML VIAL ONE (11:52)
--- NOTE | 2022-11-07 12:03 | RAD REPORT ---
EXAM DESCRIPTION: Kirk Single View11/07/2022 11:48 am CLINICAL HISTORY: Hypertension COMPARISON: 2019 FINDINGS: Small nodule right lung unchanged probably a granuloma The lungs appear clear of acute infiltrate. The heart is normal size IMPRESSION: No acute abnormalities displayed
[2022-11-07 12:11] LABS: Magnesium 2.1 mg/dL (1.6-2.4); Potassium 3.6 mEq/L (3.5-5.1); Troponin High Sensitivity 11.6 pg/mL (<58.9)
--- NOTE | 2022-11-07 13:27 | ER ---
Nurse's Notes [facility] Name: Joselyn Lerner Jr Age: 47 yrs Sex: Male : 1975 Arrival Date: 11/07/2022 Time: 11:12 Bed 5 Private MD: Diagnosis: Essential (primary) hypertension;Renal Insufficiency Presentation: 11/07 11:19 Chief complaint: Patient states: he was sent here from his PCP's office for high blood ap3 pressure. patient states his PCP gave him a dose of clonidine prior to him leaving his office. patient states his systolic blood pressure was in the 210's prior to his departure of his PCP's office. Coronavirus screen: At this time, the client does not indicate any symptoms associated with coronavirus-19. Ebola Screen: No symptoms or risks identified at this time. Initial Sepsis Screen: Does the patient meet any 2 criteria? No. Patient's initial sepsis screen is negative. Does the patient have a suspected source of infection? No. Patient's initial sepsis screen is negative. Risk Assessment: Do you want to hurt yourself or someone else? Patient reports no desire to harm self or others. Onset of symptoms is unknown. 11:19 Method Of Arrival: Ambulatory ap3 11:19 Acuity: DANIELLE 2 ap3 Triage Assessment: 11:21 General: Appears in no apparent distress. Behavior is calm, cooperative, appropriate ap3 for age. Pain: Denies pain. Neuro: Level of Consciousness is awake, alert, obeys commands, Oriented to person, place, time, situation, Appropriate for age. Cardiovascular: Patient's skin is warm and dry. Respiratory: Airway is patent Respiratory effort is even, unlabored, Respiratory pattern is regular, symmetrical. GI: No deficits noted. No signs and/or symptoms were reported involving the gastrointestinal system. : No deficits noted. No signs and/or symptoms were reported regarding the genitourinary system. Historical: - Allergies: 11:20 Hydrocodone-Acetaminophen; ap3 11:20 Tylenol; ap3 - PMHx: 11:20 Gout; Hypertension; stroke; ap3 - Immunization history:: Client reports receiving the 2nd dose of the Covid vaccine. - Social history:: Smoking status: Patient denies any tobacco usage or history of. Screenin:23 [facility] ED Fall Risk Assessment (Adult) History of falling in the last 3 months, ap3 including since admission No falls in past 3 months (0 pts). Abuse screen: Denies threats or abuse. Nutritional screening: No deficits noted. 11:24 Tuberculosis screening: No symptoms or risk factors identified. ap3 Assessment: 11:30 General: Appears in no apparent distress. Behavior is calm, cooperative, appropriate ko1 for age. Pain: Denies pain. Neuro: No deficits noted. Cardiovascular: Reports high blood pressure. Respiratory: No deficits noted. GI: No deficits noted. : No deficits noted. EENT: No deficits noted. Derm: No deficits noted. Musculoskeletal: No deficits noted. 13:34 Reassessment: Patient appears in no apparent distress at this time. No changes from ld1 previously documented assessment. Patient and/or family updated on plan of care and expected duration. Pain level reassessed. Patient is alert, oriented x 3, equal unlabored respirations, skin warm/dry/pink. Vital Signs: 11:19 BP 229 / 131; Pulse 66; Resp 18; Temp 97.9; Pulse Ox 100% ; Weight 104.78 kg; ap3 11:25 BP 208 / 129; ap3 11:40 BP 182 / 114; Pulse 68; Resp 16; Pulse Ox 99% ; ko1 13:07 BP 149 / 100; Pulse 60; Resp 18; Pulse Ox 100% on R/A; mb9 13:34 BP 155 / 89; Pulse 64; Resp 18; Pulse Ox 99% on R/A; ld1 ED Course: 11:13 Patient arrived in ED. rg4 11:19 Andrés Dunbar DO is Attending Physician. ms3 11:20 Triage completed. ap3 11:24 Arm band placed on right wrist. ap3 11:30 Inserted saline lock: 20 gauge in right antecubital area, using aseptic technique. ko1 Blood collected. 11:40 Patient has correct armband on for positive identification. Bed in low position. Call ko1 light in reach. Side rails up X 1. Provided Education on: na. Pulse ox on. NIBP on. Door closed. Noise minimized. Warm blanket given. 11:40 Troponin HS Sent. ko1 11:40 Magnesium Sent. ko1 11:40 CBC with Diff Sent. ko1 11:40 Basic Metabolic Panel Sent. ko1 11:43 Dunbar, Anastacia, RN is Primary Nurse. ld1 11:49 XRAY Chest (1 view) In Process Unspecified. EDMS 13:21 Mervin Randall MD is Referral Physician. ms3 13:29 No provider procedures requiring assistance completed. IV discontinued, intact, ko1 bleeding controlled, No redness/swelling at site. Pressure dressing applied. Administered Medications: 11:43 Drug: hydrALAZINE IVP 10 mg Route: IVP; Site: right antecubital; ld1 Medication: 13:29 VIS not applicable for this client. ko1 Outcome: 13:27 Discharge ordered by . ms3 13:34 Discharged to home ambulatory. ld1 13:34 Condition: stable 13:34 Discharge instructions given to patient, Instructed on discharge instructions, follow up and referral plans. Demonstrated understanding of instructions, follow-up care. 13:35 Patient left the ED. ld1 Signatures: Dispatcher [employer] EDMS Olga Lerner rg4 Drea Pate RN RN ap3 Andrés Dunbar, DO DO ms3 Anastacia Dunbar RN RN ld1 Milagros Aguilar RN RN ko1 Jossy Barry RN RN mb9
--- NOTE | 2022-11-07 13:27 | EDPHYS ---
Physician Documentation [facility] Name: Joselyn Lerner Jr Age: 47 yrs Sex: Male : 1975 Arrival Date: 11/07/2022 Time: 11:12 Bed 5 Private MD: ED Physician Andrés Dunbar HPI: 11/07 11:28 This 47 yrs old Male presents to ER via Ambulatory with complaints of High ms3 Blood Pressure. 11:28 47-year-old male with past medical history of gout, stroke, hypertension presents from [facility] Randall's office for hypertension. Patient states in Dr. Randall's office he was given clonidine, and unknown dose. Patient states he has not taken his blood pressure medications in 1 year due to financial constraints. Patient denies headache, vision changes, chest pain, shortness of breath, nausea, vomiting. Historical: - Allergies: 11:20 Hydrocodone-Acetaminophen; ap3 11:20 Tylenol; ap3 - PMHx: 11:20 Gout; Hypertension; stroke; ap3 - Immunization history:: Client reports receiving the 2nd dose of the Covid vaccine. - Social history:: Smoking status: Patient denies any tobacco usage or history of. ROS: 11:28 Constitutional: Negative for fever, and chills. Neck: Negative for injury, pain, and ms3 swelling, Cardiovascular: Negative for chest pain, and palpitations. Respiratory: Negative for shortness of breath, cough, wheezing, and pleuritic chest pain, Abdomen/GI: Negative for abdominal pain, nausea, vomiting, diarrhea, and constipation, MS/Extremity: Negative for injury and deformity, Skin: Negative for injury, rash, and discoloration. 11:28 All other systems are negative. Exam: 11:28 Constitutional: This is a well developed, well nourished patient who is awake, alert, ms3 and in no acute distress. Head/Face: Normocephalic, atraumatic. Neck: Trachea midline, no cervical lymphadenopathy. Supple, full range of motion without nuchal rigidity, or vertebral point tenderness. No Meningismus. Chest/axilla: Normal chest wall appearance and motion. Nontender with no deformity. Cardiovascular: Regular rate and rhythm with a normal S1 and S2. No gallops, murmurs, or rubs. Normal PMI, no JVD. No pulse deficits. Respiratory: Lungs have equal breath sounds bilaterally, clear to auscultation and percussion. No rales, rhonchi or wheezes noted. No increased work of breathing, no retractions or nasal flaring. Abdomen/GI: Soft, non-tender, with normal bowel sounds. No distension or tympany. No guarding or rebound. No evidence of tenderness throughout. Skin: Warm, dry with normal turgor. Normal color with no rashes, no lesions, and no evidence of cellulitis. 11:47 ECG was reviewed by the Attending Physician. ms3 Vital Signs: 11:19 BP 229 / 131; Pulse 66; Resp 18; Temp 97.9; Pulse Ox 100% ; Weight 104.78 kg; ap3 11:25 BP 208 / 129; ap3 11:40 BP 182 / 114; Pulse 68; Resp 16; Pulse Ox 99% ; ko1 13:07 BP 149 / 100; Pulse 60; Resp 18; Pulse Ox 100% on R/A; mb9 13:34 BP 155 / 89; Pulse 64; Resp 18; Pulse Ox 99% on R/A; ld1 MDM: 11:28 Differential diagnosis: hypertensive crisis, TONY vs HTN. ms3 11:32 Patient medically screened. ms3 12:49 Data reviewed: vital signs, nurses notes, and as a result, I will discharge patient. I ms3 considered the following discharge prescriptions or medication management in the emergency department Medications were administered in the Emergency Department. See MAR. Independent interpretation of the following test(s) in the Emergency Department X-Ray: My interpretation is CXR image reviewed and does not reveal PNA. Counseling: I had a detailed discussion with the patient and/or guardian regarding the historical points, exam findings, and any diagnostic results supporting the discharge/admit diagnosis, lab results, radiology results, the need for outpatient follow up, to return to the emergency department if symptoms worsen or persist or if there are any questions or concerns that arise at home. Special discussion: I discussed with the patient/guardian in detail that at this point there is no indication for admission to the hospital. It is understood, however, that if the symptoms persist or worsen the patient needs to return immediately for re-evaluation. ED course: Discussed labs, chest x-ray with patient. Patient to follow back up with Dr. Prakash in 2 to 3 days. Discussed recording blood pressure log. Patient started on prior antihypertensive medications. Patient understands and agrees with plan. All questions were answered. On reevaluation patient is alert and oriented x4, no apparent distress, nontoxic-appearing, ambulatory in emergency room, speaking full sentences. 11/07 11:27 Order name: Basic Metabolic Panel; Complete Time: 12:31 ms3 11/07 11:27 Order name: CBC with Diff; Complete Time: 12:3 11/07 11:27 Order name: Magnesium; Complete Time: 12:3 11/07 11:27 Order name: Troponin HS; Complete Time: 12:3 11/07 11:27 Order name: XRAY Chest (1 view); Complete Time: 12:11/07 11:27 Order name: EKG; Complete Time: 11:11/07 11:27 Order name: Cardiac monitoring; Complete Time: 11:40 3 11/07 11:27 Order name: EKG - Nurse/Tech; Complete Time: :11/07 11:27 Order name: IV Saline Lock; Complete Time: 11:11/07 11:27 Order name: Labs collected and sent; Complete Time: 11:11/07 11:27 Order name: O2 Per Protocol; Complete Time: 11/07 11:27 Order name: O2 Sat Monitoring; Complete Time: 11/07 12:49 Order name: Vital Signs; Complete Time: 13:08 ms3 EC:47 Rate is 61 beats/min. Rhythm is regular. QRS [place] is Normal. IN interval is normal. QRS ms3 interval is normal. Clinical impression: NSR w/ Non-specific ST/T Changes. Interpreted by me. Reviewed by me. Administered Medications: 11:43 Drug: hydrALAZINE IVP 10 mg Route: IVP; Site: right antecubital; ld1 Disposition Summary: 11/07/22 13:27 Discharge Ordered Location: Home ms3 Condition: Stable ms3 Diagnosis - Essential (primary) hypertension ms3 - Renal Insufficiency ms3 Followup: ms3 - With: Mervin Randall MD - When: 2 - 3 days - Reason: Re-evaluation by your physician Discharge Instructions: - Discharge Summary Sheet ms3 - Hypertension, Adult ms3 - Chronic Kidney Disease, Adult, [place] ms3 Forms: - Medication Reconciliation Form ms3 - Thank You Letter ms3 - Antibiotic Education ms3 - Prescription Opioid Use ms3 - Patient Portal Instructions ms3 - Leadership Thank You Letter ms3 Prescriptions: - amlodipine 5 mg Oral tablet - take 1 tablet by ORAL route daily; 30 tablet; Refills: 0, Product Selection ms3 Permitted - lisinopril 40 mg Oral tablet - take 1 tablet by ORAL route daily; 30 tablet; Refills: 0, Product Selection ms3 Permitted - Metoprolol Tartrate 50 mg Oral Tablet - take 1 tablet by ORAL route 2 times per day take with meal; 60 tablet; Refills: ms3 0, Product Selection Permitted Signatures: Dispatcher [employer] Drea Zhao RN RN ap3 Andrés Dunbar, DO ms3 Anastacia Dunbar RN RN ld1
[2022-11-07 13:49] VITALS: TEMP 97.9
[2022-11-07 13:56] VITALS: BP 155/89; O2SAT 99
--- NOTE | 2022-11-08 13:03 | EKG ---
Test Date: 2022-11-07 Test Time: 11:37:55 Unpaid Intern: Blas BRIDGES MEASUREMENT RESULTS: Intervals: Rate: 61 MN: 152 QRSD: 86 QT: 418 QTc: 420 [place]: P: 16 MN: 152 QRS: 22 T: -13 INTERPRETIVE STATEMENTS: Normal sinus rhythm Minimal voltage criteria for LVH, may be normal variant Inferior infarct, age undetermined Abnormal ECG Compared to ECG 03/01/2019 04:47:23 Left ventricular hypertrophy now present Myocardial infarct finding now present Electronically Signed On 11-08-22 13:01:15 CDT by Claudy Samuels
== END 2022-11-07 13:35 | disposition home or self-care (01) ==
LOC: ER 11:12
DX: I10 Essential (primary) hypertension (principal); N28.9 Disorder of kidney and ureter, unspecified; Z88.5 Allergy status to narcotic agent; Z88.6 Allergy status to analgesic agent
CPT/HCPCS: 85025; 80048; 36415; 83735; 84484; 71045; J0360; 93005; 96374; 99284

== ENCOUNTER 2023-07-29 08:22 | Inpatient (IN) | payer BC ==
[2023-07-29] MEDS ORDERED: METOPROLOL TAR 50 MG TAB ONE (08:56)
--- NOTE | 2023-07-29 08:56 | RAD REPORT ---
EXAM DESCRIPTION: CT - Head Brain Wo Cont - 07/29/2023 8:51 am CLINICAL HISTORY: DIZZINESS Headache, drowsiness, dizziness, CVA symptomology COMPARISON: Head angio dated 03/01/2019; Ct Stroke Brain Wo Cont dated 03/01/2019 TECHNIQUE: All CT scans are performed using dose optimization technique as appropriate and may inclu de automated exposure control or mA/KV adjustment according to patient size. FINDINGS: No intracranial hemorrhage, hydrocephalus or extra-axial fluid collection.Mild generalized brain atrophy is present with mild periventricular and deep white matter chronic microvascular ische damion changes.No areas of brain edema or evidence of midline shift. The paranasal sinuses and mastoids are clear. The calvarium is intact. IMPRESSION: No acute intracranial abnormality.
[2023-07-29] MEDS ORDERED: lisinopriL 20 MG TAB ONE (08:57)
[2023-07-29] MEDS ORDERED: AMLODIPINE 5 MG TAB ONE (08:57)
--- NOTE | 2023-07-29 09:05 | RAD REPORT ---
EXAM DESCRIPTION: RAD - Chest Single View - 07/29/2023 8:59 am CLINICAL HISTORY: CHEST PAIN Chest pain. COMPARISON: Chest Single View dated 11/07/2022; Chest Single View dated 03/03/2019; Chest Single View d ated 03/01/2019; Chest Single View dated 04/30/2017 FINDINGS: Portable technique limits examination quality. The lungs are grossly clear. The heart is normal in size. No displaced fractures. IMPRESSION: No acute intrathoracic process suspected.
[2023-07-29 09:28] LABS: Absolute Basophils 0.1 K/uL (0-0.5); Absolute Eosinophils 0.1 K/uL (0-0.5); Absolute Lymphocytes (CBC) 1.6 K/uL (0.7-4.9); Absolute Monocytes 0.4 K/uL (0.1-1.3); Absolute Neutrophil 3.4 K/uL (1.8-8.0); Basophils % 1.1 % (0-1.3); Eosinophils % 1.5 % (0-4.4); Hematocrit 41.9 % (39.6-49.0); Hemoglobin 14.5 g/dL (13.6-17.9); MCH 28.4 pg (27.0-35.0); MCHC 34.6 g/dL (32.0-36.0); MCV 82.1 fL (80-100); MPV 8.4 fL (7.6-11.3); Monocytes % 7.9 % (3.3-12.3); Neutrophils % 60.5 % (41.7-73.7); Nucleated Red Blood Cells % 0.2 % (0-0); Platelets 241 thou/uL (152-406); Red Cell Distribution Width 14.2 % (12.1-15.2)
[2023-07-29 09:37] LABS: PT Prothrombin Time 11.1 SECONDS (9.5-12.5); PTT, Activated Partial Thromb 31.4 SECONDS (24.3-36.9); Protime INR 1.01
[2023-07-29 09:52] LABS: Albumin 3.9 g/dL (3.4-5.0); Albumin/Globulin Ratio 0.9 (1.1-1.8); Anion Gap 11.6 mEq/L (5.0-15.0); Bilirubin Direct 0.2 mg/dL (0-0.2); Bilirubin Indirect, Calculated 0.9 mg/dL (0.2-0.8); Bilirubin Total 1.1 mg/dL (0.2-1.0); Globulin 4.2 g/dL (2.3-3.5); Magnesium 2.2 mg/dL (1.6-2.4); Potassium 3.6 mEq/L (3.5-5.1); Protein, Total 8.1 g/dL (6.4-8.2); Troponin High Sensitivity 17.1 pg/mL (<58.9)
[2023-07-29] MEDS ORDERED: HYDRALAZINE HCL 20 MG/ML VIAL ONE (10:08)
[2023-07-29] MEDS ORDERED: NA CHLORIDE 0.9% 1,000 ML ONE (10:08)
[2023-07-29] MEDS ORDERED: cloNIDine HCL 0.1 MG TAB ONE (10:46)
[2023-07-29] MEDS ORDERED: COLCHICINE 0.6 MG TAB ONE (12:09)
--- NOTE | 2023-07-29 12:34 | ER ---
Nurse's Notes [facility] Name: Joselyn Lerner Jr Age: 48 yrs Sex: Male : 1975 Arrival Date: 07/29/2023 Time: 08:22 Bed 17 Private MD: Diagnosis: Cerebral infarction, unspecified Presentation: 07/28 08:32 Chief complaint: Patient states: 1 HOUR SOB AND DIZZINESS. Coronavirus screen: At this bp time, the client does not indicate any symptoms associated with coronavirus-19. Ebola Screen: No symptoms or risks identified at this time. Initial Sepsis Screen: Does the patient meet any 2 criteria? No. Patient's initial sepsis screen is negative. Does the patient have a suspected source of infection? No. Patient's initial sepsis screen is negative. Risk Assessment: Do you want to hurt yourself or someone else? Patient reports no desire to harm self or others. Onset of symptoms was July 29, 2023 at 07:30. 08:32 Method Of Arrival: Ambulatory bp 08:32 Acuity: DANIELLE 3 bp Triage Assessment: 08:33 General: Appears in no apparent distress. Behavior is cooperative, appropriate for age, bp anxious. Pain: Denies pain. Neuro: Reports dizziness. Respiratory: Reports shortness of breath Onset: The symptoms/episode began/occurred this morning, the patient has mild shortness of breath. Historical: - Allergies: 08:33 Hydrocodone-Acetaminophen; bp 08:33 Tylenol; bp - Home Meds: 08:33 Lisinopril Oral [Active]; Metoprolol Tartrate Oral [Active]; bp - PMHx: 08:33 Gout; Hypertension; stroke; bp - Immunization history:: Adult Immunizations up to date. - Infectious Disease History:: Denies. - Social history:: Smoking status: Patient denies any tobacco usage or history of. Screenin:35 [facility] ED Fall Risk Assessment (Adult) History of falling in the last 3 months, bp including since admission No falls in past 3 months (0 pts). Abuse screen: Denies threats or abuse. Denies injuries from another. Nutritional screening: No deficits noted. Tuberculosis screening: No symptoms or risk factors identified. 16:14 [place] Swallow Protocol Exclusion Criteria: Unable to remain alert for testing: No Brief me1 Cognitive Screen What is your name? Normal, Where are you right now? Normal, What year is it? Normal. Oral Mechanism Examination Facial Symmetry: Normal, Motion: Normal, Lip Closure: Normal, 3 oz Water Swallow Challenge: Pt able to drink all water without stopping, coughing, choking or throat clearing: Yes Result: PASS Notified: Monica Orr PA-C. Assessment: 08:35 General: Appears in no apparent distress. uncomfortable, Behavior is cooperative, bp appropriate for age, anxious. Pain: Denies pain. Neuro: Level of Consciousness is awake, alert, obeys commands, Oriented to Appropriate for age Reports dizziness. Cardiovascular: Rhythm is sinus bradycardia. Respiratory: Airway is patent Respiratory effort is even, unlabored, Breath sounds are clear bilaterally. 09:54 Reassessment: Patient appears in no apparent distress at this time. Patient is alert, bp oriented x 3, equal unlabored respirations, skin warm/dry/pink. 13:09 General: Left sided facial droop noted. Code stroke called. Davida ZAMORA informed. . me1 13:15 General: To CT. me1 Vital Signs: 08:32 BP 242 / 128; Pulse 71; Resp 16; Temp 97.9; Pulse Ox 100% ; Weight 108.86 kg; Height 5 bp ft. 8 in. ; 09:54 BP 228 / 130; Pulse 46; Resp 16; Pulse Ox 100% ; bp 12:14 BP 161 / 85; Pulse 54; Resp 16; Pulse Ox 100% ; me1 13:01 BP 160 / 87; Pulse 57; Resp 17; Pulse Ox 99% ; me1 13:20 BP 153 / 101; Pulse 59; Resp 16; Pulse Ox 99% on R/A; me1 14:00 BP 204 / 111; Pulse 48; Resp 14; Pulse Ox 100% on R/A; me1 14:46 Weight 109.7 kg; me1 15:32 BP 222 / 127; Pulse 48; Resp 14; Pulse Ox 100% on R/A; me1 15:40 BP 185 / 107; Pulse 58; Resp 14; Pulse Ox 100% on R/A; me1 15:55 BP 195 / 119; Pulse 52; Resp 15; Pulse Ox 100% on R/A; me1 16:00 BP 171 / 104; Pulse 51; Resp 11; Pulse Ox 99% on R/A; me1 16:15 BP 171 / 103; Pulse 50; Resp 11; Pulse Ox 97% on R/A; me1 16:30 BP 155 / 96; Pulse 47; Resp 11; Pulse Ox 99% on R/A; me1 16:45 BP 158 / 96; Pulse 48; Resp 12; Pulse Ox 100% on R/A; me1 17:00 BP 156 / 94; Pulse 45; Resp 15; Pulse Ox 100% on R/A; me1 17:15 BP 145 / 89; Pulse 47; Resp 11; Pulse Ox 100% on R/A; me1 08:32 Body Mass Index 36.49 (109.70 kg, 172.72 cm) bp NIH Stroke Scale Scores: 13:10 NIHSS Score: 2 me1 13:56 NIHSS Score: 2 sb4 ED Course: 08:26 Patient arrived in ED. im 08:27 Monica Orr PA-C is PHCP. sb4 08:27 Denis English MD is Attending Physician. sb4 08:27 Bryan Wolf, CRISTELA is Primary Nurse. bp 08:33 Triage completed. bp 08:33 Arm band placed on. bp 08:35 Patient has correct armband on for positive identification. Bed in low position. Call bp light in reach. 08:50 CT Head Brain wo Cont Sent. bp 08:52 CT Head Brain wo Cont In Process Unspecified. EDMS 09:01 Chest Single View XRAY In Process Unspecified. EDMS 09:05 Inserted saline lock: 20 gauge in right forearm, using aseptic technique. Blood bp collected. 09:05 Initial lab(s) drawn, by nv, sent to lab. EKG done, by ED staff, reviewed by Monica Orr PA-C. 12:33 Mervin Randall MD is Referral Physician. sb4 13:10 Provided Education on: POC. Verbalized understanding. . Client placed on continuous bp cardiac and pulse oximetry monitoring. NIBP monitoring applied. satellite tv technician on. Pulse ox on. NIBP on. 13:10 No provider procedures requiring assistance completed. bp 13:18 Ct Stroke Brain Wo Cont In Process Unspecified. EDMS 13:28 CT Head Angio In Process Unspecified. EDMS 13:28 CT Neck Angio In Process Unspecified. EDMS 14:53 Mervin Randall MD is Hospitalizing Provider. sb4 15:03 Wesley Flannery MD is Hospitalizing Provider. sb4 15:03 Hospitalizing Provider role handed off by Wesley Flannery MD sb4 15:03 Mario Flannery MD is Hospitalizing Provider. sb4 15:03 Hospitalizing Provider role handed off by Mario Flannery MD sb4 15:03 Wesley Flannery MD is Hospitalizing Provider. sb4 15:03 Hospitalizing Provider role handed off by Wesley Flannery MD sb4 15:03 Mario Flannery MD is Hospitalizing Provider. sb4 15:32 Brain Wo Cont In Process Unspecified. EDMS 15:48 Primary Nurse role handed off by Bryan Wolf, CRISTELA bp 15:49 Ro James, CRISTELA is Primary Nurse. me1 Administered Medications: 09:05 Drug: Metoprolol PO 50 mg PO once Route: PO; bp 13:06 Follow up: Response: No adverse reaction; Blood pressure is lowered bp 09:05 Drug: Lisinopril PO 40 mg PO once Route: PO; bp 13:05 Follow up: Response: No adverse reaction; Blood pressure is lowered bp 09:05 Drug: amLODIPine PO 5 mg PO once Route: PO; bp 13:05 Follow up: Response: No adverse reaction; Blood pressure is lowered bp 10:12 Drug: hydrALAZINE IVP 10 mg IVP once Route: IVP; Site: right forearm; bp 13:05 Follow up: Response: No adverse reaction; Blood pressure is lowered bp 10:12 Drug: NS 0.9% IV 1000 ml IV at 1 bolus Per protocol; 1000 mL bolus Route: IV; Rate: 1 bp bolus; Site: right forearm; 13:05 Follow up: Response: No adverse reaction; IV Status: Completed infusion bp 10:45 Drug: cloNIDine PO 0.2 mg PO once Route: PO; bp 13:04 Follow up: Response: No adverse reaction; Blood pressure is lowered bp 12:11 Drug: Colchicine-Probenecid PO 2 tabs PO once Route: PO; bp 13:05 Follow up: Response: No adverse reaction bp 15:53 Drug: Aspirin PO 162 mg PO once Route: PO; me1 16:53 Follow up: Response: No adverse reaction me1 15:53 Drug: Clopidogrel PO 75 mg PO once Route: PO; me1 16:53 Follow up: Response: No adverse reaction me1 15:53 Drug: foLIC Acid IVPB 1 mg IVPB once Route: IVPB; Site: right antecubital; me1 16:53 Follow up: Response: No adverse reaction; IV Status: Completed infusion me1 17:37 Not Given (Instructed to hold by Elian De La Garza ORDNANCE ARTIFICER per decreasing bpp): cardene5 mg/hr IV me1 at mg/hr continuous; 5mg/hr Medication: 08:35 VIS not applicable for this client. bp Outcome: 12:33 Discharge ordered by MD. sb4 14:53 Decision to Hospitalize by Provider. sb4 17:53 Patient left the ED. bd 18:07 Admitted to ICU accompanied by nurse, room -1, on monitor, with chart, Report called to milton Cross RN 18:07 Condition: stable 18:07 Instructed on the need for admit, NIH Stroke Scale - NIH Stroke Score Date: 07/29/2023 Time: 13:10 Total Score = 2 10. Dysarthria (speech clarity - read or repeat words) - 0(Normal) 11. Extinction and Inattention (visual/tactile/auditory/spatial/personal) - 0(No abnormality) 1a. Level of Consciousness (LOC) - 0(Alert) 1b. Level of Consciousness (LOC) (Month \T\ Age) 1c. LOC Commands (Open \T\ Closes Eyes/Agricultural Equipment Mechanic) - 0(Both) 2. Best Gaze (Lateral Gaze Paresis) - 0(Normal) 3. Visual Field Loss - 0(No visual loss) 4. Facial Palsy - 2(Partial paralysis) 5a. Left Arm: Motor (10-second hold) - 0(No drift) 5b. Right Arm: Motor (10-second hold) - (No drift) 6a. Left Leg: Motor (5-second hold - always test supine) - 0(No drift) 6b. Right Leg: Motor (5-second hold - always test supine) - 0(No drift) 7. Limb Ataxia (finger/nose \T\ heel/tomlinson - test with eyes open) - 0(Absent) 8. Sensory Loss (pinprick arms/legs/face) - 0(Normal) 9. Best Language: Aphasia (description/naming/reading) - 0(No aphasia) Initials: [facility] NIH Stroke Scale - NIH Stroke Score Date: 07/29/2023 Time: 13:56 Total Score = 2 10. Dysarthria (speech clarity - read or repeat words) - 0(Normal) 11. Extinction and Inattention (visual/tactile/auditory/spatial/personal) - 0(No abnormality) 1a. Level of Consciousness (LOC) - 0(Alert) 1b. Level of Consciousness (LOC) (Month \T\ Age) - 0(Both) 1c. LOC Commands (Open \T\ Closes Eyes/Agricultural Equipment Mechanic) - 0(Both) 2. Best Gaze (Lateral Gaze Paresis) - 0(Normal) 3. Visual Field Loss - 0(No visual loss) 4. Facial Palsy - 2(Partial paralysis) 5a. Left Arm: Motor (10-second hold) - 0(No drift) 5b. Right Arm: Motor (10-second hold) - 0(No drift) 6a. Left Leg: Motor (5-second hold - always test supine) - 0(No drift) 6b. Right Leg: Motor (5-second hold - always test supine) - 0(No drift) 7. Limb Ataxia (finger/nose \T\ heel/tomlinson - test with eyes open) - 0(Absent) 8. Sensory Loss (pinprick arms/legs/face) - 0(Normal) 9. Best Language: Aphasia (description/naming/reading) - 0(No aphasia) Initials: sb4 Signatures: Dispatcher [employer] Gabriella Alicia Brian, RN RN Monica Shoemaker, MARJORIEC PAZen sb4 Pina Shaw Michelle, RN RN me1 Corrections: (The following items were deleted from the chart) 13:05 13:04 Response: No adverse reaction; Blood pressure is lowered bp bp 13:41 13:09 General: Left sided facial droop noted. Code stroke called. Davida Orr me1 PA informed. . bp 13:41 13:15 General: To CT. bp me1 13:42 13:10 NIHSS Score: 2 bp me1 13:42 12:14 BP 161 / 85; Pulse 54bpm; Resp 16bpm; Pulse Ox 100%; bp me1 13:42 13:01 BP 160 / 87; Pulse 57bpm; Resp 17bpm; Pulse Ox 99%; bp me1
--- NOTE | 2023-07-29 12:34 | EDPHYS ---
Physician Documentation [facility] Name: Joselyn Lerner Jr Age: 48 yrs Sex: Male : 1975 Arrival Date: 07/29/2023 Time: 08:22 Bed 17 Private MD: ED Physician Denis English HPI: 07/28 08:39 This 48 yrs old Male presents to ER via Ambulatory with complaints of sb4 Shortness Of Breath, Dizziness. 08:45 patient states he started experiencing dizziness and shortness of breath shortly after sb4 waking this morning. denies any chest pain, headache, blurry vision, nausea. states he has not been taking his blood pressure as prescribed, has been stretching it out to make it last longer. Historical: - Allergies: 08:33 Hydrocodone-Acetaminophen; bp 08:33 Tylenol; bp - Home Meds: 08:33 Lisinopril Oral [Active]; Metoprolol Tartrate Oral [Active]; bp - PMHx: 08:33 Gout; Hypertension; stroke; bp - Immunization history:: Adult Immunizations up to date. - Infectious Disease History:: Denies. - Social history:: Smoking status: Patient denies any tobacco usage or history of. ROS: 08:45 Constitutional: Negative for fever, chills, and weight loss, sb4 08:45 Respiratory: Positive for shortness of breath, 08:45 Neuro: Positive for dizziness, 08:45 All other systems are negative, Exam: 08:45 Head/Face: Normocephalic, atraumatic. Eyes: Extra-ocular motions intact. Periorbital sb4 areas with no swelling, redness, or edema. ENT: Mucous membranes moist. Cardiovascular: Regular rate and rhythm with a normal S1 and S2. Respiratory: Lungs have equal breath sounds bilaterally, clear to auscultation and percussion. No rales, rhonchi or wheezes noted. No increased work of breathing, no retractions or nasal flaring. Abdomen/GI: Soft, non-tender, no distension. Skin: Warm, dry with normal turgor. Normal color with no rashes, no lesions, and no evidence of cellulitis. MS/ Extremity: Pulses equal, no cyanosis. Neurovascular intact. Full, normal range of motion. Neuro: Awake and alert, GCS 15, oriented to person, place, time, and situation. Motor strength 5/5 in all extremities. Sensory grossly intact. 08:45 Constitutional: The patient appears alert, awake, obese, Vital Signs: 08:32 BP 242 / 128; Pulse 71; Resp 16; Temp 97.9; Pulse Ox 100% ; Weight 108.86 kg; Height 5 bp ft. 8 in. ; 09:54 BP 228 / 130; Pulse 46; Resp 16; Pulse Ox 100% ; bp 12:14 BP 161 / 85; Pulse 54; Resp 16; Pulse Ox 100% ; me1 13:01 BP 160 / 87; Pulse 57; Resp 17; Pulse Ox 99% ; me1 13:20 BP 153 / 101; Pulse 59; Resp 16; Pulse Ox 99% on R/A; me1 14:00 BP 204 / 111; Pulse 48; Resp 14; Pulse Ox 100% on R/A; me1 14:46 Weight 109.7 kg; me1 15:32 BP 222 / 127; Pulse 48; Resp 14; Pulse Ox 100% on R/A; me1 15:40 BP 185 / 107; Pulse 58; Resp 14; Pulse Ox 100% on R/A; me1 15:55 BP 195 / 119; Pulse 52; Resp 15; Pulse Ox 100% on R/A; me1 16:00 BP 171 / 104; Pulse 51; Resp 11; Pulse Ox 99% on R/A; me1 16:15 BP 171 / 103; Pulse 50; Resp 11; Pulse Ox 97% on R/A; me1 16:30 BP 155 / 96; Pulse 47; Resp 11; Pulse Ox 99% on R/A; me1 16:45 BP 158 / 96; Pulse 48; Resp 12; Pulse Ox 100% on R/A; me1 17:00 BP 156 / 94; Pulse 45; Resp 15; Pulse Ox 100% on R/A; me1 17:15 BP 145 / 89; Pulse 47; Resp 11; Pulse Ox 100% on R/A; me1 08:32 Body Mass Index 36.49 (109.70 kg, 172.72 cm) bp NIH Stroke Scale Scores: 13:10 NIHSS Score: 2 me1 13:56 NIHSS Score: 2 sb4 MDM: 08:27 Patient medically screened. sb4 11:57 ED course: symptoms have resolved as BP has improved. stroke work up is grossly sb4 unremarkable. no evidence of end organ damage. renal function is slightly worse than baseline. discussed elevated blood sugar and the importance of taking his BP medication as prescribed. Provided with good rx card and instructed to follow up with PCP in 2-3 days. 12:32 Data reviewed: vital signs, nurses notes, lab test result(s), EKG, radiologic studies, sb4 I have discussed the patient's presentation/case with the attending Emergency Department Physician; and as a result, I will discharge patient. Consideration of Admission/Observation Escalation of care including admission/observation considered. Historians other than the Patient: Spouse/Significant Other: . Care significantly affected by the following chronic conditions: Hypertension, Obesity, Chronic Kidney Disease. Counseling: I had a detailed discussion with the patient and/or guardian regarding the historical points, exam findings, and any diagnostic results supporting the discharge/admit diagnosis, the presence of at least one elevated blood pressure reading (>120/80) during this emergency department visit, lab results, radiology results, the need for outpatient follow up, for definitive care, a weed controller, to return to the emergency department if symptoms worsen or persist or if there are any questions or concerns that arise at home. 13:21 ED course: RN went to dispo patient, noted facial droop. no facial droop during my sb4 disposition discussion, code stroke called. . 13:56 ED course: discussed TNK with patient. he is unsure. he wants to think about it, he sb4 will wait for results of angiograms before deciding. 14:58 Management of patient was discussed with the following: Turret Punch Press Operator: Dr. boyce, does [facility] NOT recommend TNK due to history of possible aneurysm found on MRI in 2019. recommends medical management with BP lowering medications, aspirin, plavix, statin, folic acid. Primary Care Provider: Prakash, called and left message . 15:06 ED course: Dr. Randall unavailable, hospitalist team accepts. sb4 07/28 08:38 Order name: Basic Metabolic Panel; Complete Time: 09:55 sb4 07/28 08:38 Order name: CBC with Diff; Complete Time: 09:33 sb4 07/28 08:38 Order name: Hepatic Function; Complete Time: 09:55 sb4 07/28 08:38 Order name: Magnesium; Complete Time: 09:55 sb4 07/28 08:38 Order name: Protime (+inr); Complete Time: 09:39 sb4 07/28 08:38 Order name: Ptt, Activated; Complete Time: 09:39 sb4 07/28 08:38 Order name: Troponin High Sensitivity; Complete Time: 09:55 sb4 03 10:07 Order name: UAM; Complete Time: 12:35 sb4 07/28 10:27 Order name: BNP; Complete Time: 10:53 sb4 07/28 08:38 Order name: CT Head Brain wo Cont; Complete Time: 08:57 sb4 07/28 08:38 Order name: Chest Single View XRAY; Complete Time: 09:08 sb4 07/28 13:14 Order name: Ct Stroke Brain Wo Cont; Complete Time: 13:32 EDMS 03 13:17 Order name: CT Head Angio; Complete Time: 14:01 sb4 07/28 13:17 Order name: CT Neck Angio; Complete Time: 14:13 sb4 07/28 14:58 Order name: Brain Wo Cont; Complete Time: 16:26 EDMS 07/28 08:38 Order name: Cardiac monitoring; Complete Time: 08:50 sb4 07/28 08:38 Order name: EKG - Nurse/Tech; Complete Time: 09:21 sb4 07/28 08:38 Order name: IV Saline Lock; Complete Time: 09:21 sb4 07/28 08:38 Order name: Labs collected and sent; Complete Time: 09:21 sb4 07/28 08:38 Order name: NPO; Complete Time: 09:21 sb4 07/28 08:38 Order name: O2 Per Protocol; Complete Time: 08:50 sb4 07/28 08:38 Order name: O2 Sat Monitoring; Complete Time: 08:50 sb4 EC:16 Rate is 59 beats/min. Rhythm is regular, Sinus bradycardia. SD interval is normal at sb4 148 msec. QRS interval is normal at 84 msec. QT interval is normal at 436 msec. No Q waves. T waves are Normal. No ST changes noted. Clinical impression: Normal ECG and No evidence of ischemia. Interpreted by me. Reviewed by me. Administered Medications: 09:05 Drug: Metoprolol PO 50 mg PO once Route: PO; bp 13:06 Follow up: Response: No adverse reaction; Blood pressure is lowered bp 09:05 Drug: Lisinopril PO 40 mg PO once Route: PO; bp 13:05 Follow up: Response: No adverse reaction; Blood pressure is lowered bp 09:05 Drug: amLODIPine PO 5 mg PO once Route: PO; bp 13:05 Follow up: Response: No adverse reaction; Blood pressure is lowered bp 10:12 Drug: hydrALAZINE IVP 10 mg IVP once Route: IVP; Site: right forearm; bp 13:05 Follow up: Response: No adverse reaction; Blood pressure is lowered bp 10:12 Drug: NS 0.9% IV 1000 ml IV at 1 bolus Per protocol; 1000 mL bolus Route: IV; Rate: 1 bp bolus; Site: right forearm; 13:05 Follow up: Response: No adverse reaction; IV Status: Completed infusion bp 10:45 Drug: cloNIDine PO 0.2 mg PO once Route: PO; bp 13:04 Follow up: Response: No adverse reaction; Blood pressure is lowered bp 12:11 Drug: Colchicine-Probenecid PO 2 tabs PO once Route: PO; bp 13:05 Follow up: Response: No adverse reaction bp 15:53 Drug: Aspirin PO 162 mg PO once Route: PO; me1 16:53 Follow up: Response: No adverse reaction me1 15:53 Drug: Clopidogrel PO 75 mg PO once Route: PO; me1 16:53 Follow up: Response: No adverse reaction me1 15:53 Drug: foLIC Acid IVPB 1 mg IVPB once Route: IVPB; Site: right antecubital; me1 16:53 Follow up: Response: No adverse reaction; IV Status: Completed infusion me1 17:37 Not Given (Instructed to hold by Elian De La Garza NP per decreasing bpp): cardene5 mg/hr IV me1 at mg/hr continuous; 5mg/hr Disposition: 13:30 Critical Care:. sb4 Disposition Summary: 07/29/23 14:53 Hospitalization Ordered Notes: Hospitalization Status: Inpatient Admission sb4 Condition: Fair(07/29/23 14:53) sb4 Problem: new(07/29/23 14:53) sb4 Symptoms: are unchanged(07/29/23 14:53) sb4 Bed/Room Type: Standard sb4 Provider: Mario Flannery(07/29/23 15:03) sb4 Location: Intensive Care Unit(07/29/23 17:16) bd Room Assignment: 1-(07/29/23 17:16) bd Diagnosis - Cerebral infarction, unspecified sb4 Forms: - Medication Reconciliation Form sb4 - SBAR form sb4 - Leadership Thank You Letter sb4 Critical care time excluding procedures: 13:30 Critical care time: Bedside Care: 20 minutes, Consultation: 15 minutes, Family sb4 Intervention: 5 minutes. Total time: 40 minutes NIH Stroke Scale - NIH Stroke Score Date: 07/29/2023 Time: 13:10 Total Score = 2 10. Dysarthria (speech clarity - read or repeat words) - 0(Normal) 11. Extinction and Inattention (visual/tactile/auditory/spatial/personal) - 0(No abnormality) 1a. Level of Consciousness (LOC) - 0(Alert) 1b. Level of Consciousness (LOC) (Month \T\ Age) 1c. LOC Commands (Open \T\ Closes Eyes/Last Waxer) - 0(Both) 2. Best Gaze (Lateral Gaze Paresis) - 0(Normal) 3. Visual Field Loss - 0(No visual loss) 4. Facial Palsy - 2(Partial paralysis) 5a. Left Arm: Motor (10-second hold) - 0(No drift) 5b. Right Arm: Motor (10-second hold) - (No drift) 6a. Left Leg: Motor (5-second hold - always test supine) - 0(No drift) 6b. Right Leg: Motor (5-second hold - always test supine) - 0(No drift) 7. Limb Ataxia (finger/nose \T\ heel/tomlinson - test with eyes open) - 0(Absent) 8. Sensory Loss (pinprick arms/legs/face) - 0(Normal) 9. Best Language: Aphasia (description/naming/reading) - 0(No aphasia) Initials: me1 NIH Stroke Scale - NIH Stroke Score Date: 07/29/2023 Time: 13:56 Total Score = 2 10. Dysarthria (speech clarity - read or repeat words) - 0(Normal) 11. Extinction and Inattention (visual/tactile/auditory/spatial/personal) - 0(No abnormality) 1a. Level of Consciousness (LOC) - 0(Alert) 1b. Level of Consciousness (LOC) (Month \T\ Age) - 0(Both) 1c. LOC Commands (Open \T\ Closes Eyes/Last Waxer) - 0(Both) 2. Best Gaze (Lateral Gaze Paresis) - 0(Normal) 3. Visual Field Loss - 0(No visual loss) 4. Facial Palsy - 2(Partial paralysis) 5a. Left Arm: Motor (10-second hold) - 0(No drift) 5b. Right Arm: Motor (10-second hold) - 0(No drift) 6a. Left Leg: Motor (5-second hold - always test supine) - 0(No drift) 6b. Right Leg: Motor (5-second hold - always test supine) - 0(No drift) 7. Limb Ataxia (finger/nose \T\ heel/tomlinson - test with eyes open) - 0(Absent) 8. Sensory Loss (pinprick arms/legs/face) - 0(Normal) 9. Best Language: Aphasia (description/naming/reading) - 0(No aphasia) Initials: sb4 Addendum: 07/30/2023 20:10 I agree with the assessment and plan of care. ec2 Signatures: Dispatcher [employer] EDMS Gabriella Borrego Brian, RN RN Monica Shoemaker, PA-C PA-C sb4 Ro James RN RN me1 Denis English MD MD ec2 Corrections: (The following items were deleted from the chart) 07/28 10:08 10:08 Urinalysis W/Microscopic+U.LAB.BRZ ordered. EDMS EDMS 10:28 10:28 LAB ADD ON+C.LAB.BRZ ordered. EDMS EDMS 12:34 12:33 Unspecified kidney failure sb4 sb4 13:09 12:33 Home sb4 sb4 13:09 12:33 new sb4 sb4 13:09 12:33 have improved sb4 sb4 13:09 12:33 Stable sb4 sb4 13:09 12:33 Essential (primary) hypertension sb4 sb4 13:09 12:33 Hyperglycemia, unspecified sb4 sb4 13:09 12:34 Renal insufficiency sb4 sb4 13:14 13:09 Head Brain Wo Cont+CT.RAD.BRZ ordered. EDMS EDMS 13:17 13:17 Neck Angio+CT.RAD.BRZ ordered. EDMS EDMS 14:56 14:53 Telemetry/MedSurg (Inpatient) sb4 sb4 14:56 14:53 sb4 sb4 14:58 14:53 MR STROKE PROTOCOL+MRI.RAD.BRZ ordered. EDMS EDMS 15:03 14:53 Mervin Randall sb4 sb4 16:55 14:56 Intensive Care Unit sb4 bd 16:55 14:56 sb4 bd 17:16 16:55 [facility] ER HOLD bd bd 17:16 16:55 ERHOLD- bd bd
[2023-07-29 12:35] LABS: Specific Gravity 1.008 (1.005-1.030); Sqamous Epithelial None Seen /HPF (None Seen); Urine Bacteria <20 /HPF (<20); Urine Bilirubin NEGATIVE (Negative); Urine Blood Negative (Negative); Urine Clarity Clear (Clear); Urine Color Colorless (Yellow); Urine Culture Reflex Order NOT NEEDED; Urine Glucose TRACE (Negative); Urine Ketones NEGATIVE (Negative); Urine Micro Reflex YN NO BILL MICROSCOPIC; Urine Nitrite NEGATIVE (Negative); Urine Protein TRACE (Negative); Urine RBC <5 /HPF (None Seen); Urine Urobilinogen Normal (Normal); Urine WBC <5 /HPF (<5); Urine pH 7.5 (5.0-7.0)
--- NOTE | 2023-07-29 13:32 | RAD REPORT ---
EXAM DESCRIPTION: CT - Ct Stroke Brain Wo Cont - 07/29/2023 1:16 pm CLINICAL HISTORY: 1. STROKE ALER COMPARISON: Head Brain Wo Cont dated 07/29/2023; Head angio dated 03/01/2019 TECHNIQUE: Noncontrast head CT images were obtained without IV contrast. Multiplanar reformats were generated and reviewed. All CT scans are performed using dose optimization technique as appropriate and may include automated exposure control or mA/KV adjustment according to patient size. FINDINGS: No intracranial hemorrhage, mass, or edema. Midline structures are unremarkable. Normal ventricular caliber for age. Stable foci of hypoattenuation in the right centrum semiovale, left lentiform nucleus, and left bernadine agittal parietal cortex. These are suggestive of sequelae of remote ischemia. St-white matter diffe rentiation elsewhere is preserved, without evidence of acute infarct. No abnormal extra-axial fluid c ollections. Patchy white matter hypodensities predominantly in the periventricular regions are stable , and nonspecific, most suggestive of chronic small vessel ischemic changes. Mastoid air cells and visualized portions of the paranasal sinuses are clear. No acute bony findings. IMPRESSION: No evidence of an acute intracranial process. Chronic findings as above. The findings were communicated to Monica Orr on 07/29/2023 at 13:25 hours.
--- NOTE | 2023-07-29 14:00 | RAD REPORT ---
EXAM DESCRIPTION: CT - Head angio - 07/29/2023 1:26 pm CLINICAL HISTORY: STROKE ALERT COMPARISON: Ct Stroke Brain Wo Cont dated 07/29/2023; Head Brain Wo Cont dated 07/29/2023 TECHNIQUE: Axial CT angiography images of the head was performed with multiplanar and maximum intens ity projection reconstructions. Images performed following intravenous administration of 100mL Isovue 370. All CT scans are performed using dose optimization technique as appropriate and may include automated exposure control or mA/KV adjustment according to patient size. FINDINGS: No evidence of large vessel occlusion. Multifocal wljj-bt-oazrustn narrowing along the P2 segments bilaterally, and along the left M3 branches. No evidence of aneurysm or dissection flap is d etected. No flow-limiting stenosis or vascular malformation identified. Antegrade flow is seen in the vertebral arteries. The vertebral arteries are codominant. The visualized dural venous sinuses are grossly patent, with bilateral arachnoid cysts along the dist al transverse sinuses. IMPRESSION: No evidence of large vessel occlusion. Multifocal book-cf-myqimylq narrowing along the bilateral P2 segments of the realtime reporter, and the left M3 br anches.
--- NOTE | 2023-07-29 14:05 | EKG ---
Test Date: 2023-07-29 Test Time: 09:07:49 Health Unit Supervisor: BP MEASUREMENT RESULTS: Intervals: Rate: 59 KS: 148 QRSD: 84 QT: 436 QTc: 431 Halfway: P: 33 KS: 148 QRS: 38 T: -16 INTERPRETIVE STATEMENTS: Sinus bradycardia Otherwise normal ECG Compared to ECG 11/07/2022 11:37:55 Sinus rhythm no longer present Left ventricular hypertrophy no longer present Myocardial infarct finding no longer present Electronically Signed On 07-29-23 14:04:22 CDT by Claudy Samuels
--- NOTE | 2023-07-29 14:12 | RAD REPORT ---
EXAM DESCRIPTION: CT - Neck Angio - 07/29/2023 1:26 pm CLINICAL HISTORY: stroke COMPARISON: Neck Angio dated 03/01/2019 TECHNIQUE: Axial CT angiography images of the neck was performed with multiplanar and maximum intens ity projection reconstructions. Images performed following intravenous administration of 100mL Isovue 370. All CT scans are performed using dose optimization technique as appropriate and may include automated exposure control or mA/KV adjustment according to patient size. Quantification of carotid stenosis, if any, is performed according to NASCET criteria. FINDINGS: A left aortic arch is identified with normal three vessel configuration of the great vesse ls. No significant flow abnormality is seen of the common carotid bilaterally. No significant stenosis is identified involving the cervical segments of both internal carotid arteri es. Normal flow is seen within both vertebral arteries. Short segment fenestration of the right vertebral artery within the vertebral canal at the C4 level. IMPRESSION: No significant flow abnormality of the neck vessels is identified. CAROTID STENOSIS REFERENCE USING NASCET CRITERIA: % ICA stenosis = (1 - narrowest ICA diameter/diameter of distal cervical ICA) x 100. Mild - <50% stenosis. Moderate - 50-69% stenosis. Severe - 70-94% stenosis. Near occlusion - 95-99% stenosis. Occluded - 100% stenosis.
[2023-07-29] MEDS ORDERED: ASPIRIN 81 MG CHEWABLE TABLET ONE (15:47)
[2023-07-29] MEDS ORDERED: FOLIC ACID 5 MG/ML VIAL ONE (15:47)
[2023-07-29] MEDS ORDERED: CLOPIDOGREL 75 MG TABLET ONE (15:47)
[2023-07-29] MEDS ORDERED: Nicardipine/NS 0 MG/0 ML KIT IV ONE (15:48)
--- NOTE | 2023-07-29 16:25 | RAD REPORT ---
EXAM DESCRIPTION: MRI - Brain Wo Cont - 07/29/2023 3:34 pm CLINICAL HISTORY: STROKE ALERT COMPARISON: Head CT of the same day. MRI brain 03/02/2019 TECHNIQUE: Multiplanar multisequence MRI of the brain performed without IV contrast. FINDINGS: No evidence of acute infarct or other diffusion signal abnormality. No evidence of acute intracranial hemorrhage or abnormal extra-axial fluid collections. Mild diffuse parenchymal volume loss. Ventricular caliber otherwise within normal for age. Midline st ructures are unremarkable. Stable right centrum semiovale focus of central CSF like signal intensity and adjacent gliosis sugges tive of a small remote lacunar infarct. Progressive mild burden of apparent and deep white matter T2/ FLAIR hyperintensities, nonspecific, but suggestive of chronic small vessel ischemic changes. No mass effect or midline shift. Major vascular flow voids are preserved. Mastoid air cells and paranasal sinuses are clear. IMPRESSION: No acute intracranial process. No evidence of ventriculomegaly or mass effect. Chronic findings as above, including mildly progressive white matter signal abnormalities, nonspecifi c, but most suggestive of sequelae of chronic small vessel ischemic changes.
--- NOTE | 2023-07-29 17:42 | P.HP ---
Certification for Inpatient Patient admitted to: Inpatient With expected LOS: >2 Midnights Patient will require the following post-hospital care: None Practitioner: I am a practitioner with admitting privileges, knowledge of patient current condition, hospital course, and medical plan of care. Services: Services provided to patient in accordance with Admission requirements found in Title 42 Section 412.3 of the Code of Federal Regulations Patient History Date of Service: 07/29/23 Reason for admission: Hypertensive emergency, left-sided facial weakness History of Present Illness: 48-year-old male with history of uncontrolled hypertension, previous CVA, CKD 3, hyperlipidemia, gout, qje-ogfjxyx-blbkveldr diabetes with noncompliance presents emergency department with chief complaint of dizziness. He reports he woke up around 6 in the morning and around 7 in the morning he noticed that he was feeling dizzy, his blood pressure was markedly elevated as it usually is. He has been taking his blood pressure medications every other day as he cannot afford to take them daily and he reports his blood pressure typically runs over 200 systolic. He was evaluated in the emergency department initially treated with oral medications had an initial CT of his head without contrast performed at around 8:30 AM which was negative for acute findings, he was given blood pressure medications including metoprolol, lisinopril, amlodipine, IV hydralazine, p.o. clonidine and had marked improvement in his blood pressure. Patient was feeling better at this time and discharge planning was in place, before discharge patient developed left-sided facial droop and code stroke was called. Patient was brought back to CT for another noncontrast exam which was negative for acute findings also had CTA of the head and neck which were negative for large vessel occlusion. ED provider discussed case with neurology and previous imaging was reviewed including an MRI in 2019 which showed a possible aneurysm. For that reason patient was not a good candidate for tPA, his symptoms did also improve in the ED although he still does have some facial droop present that left side. Will admit to the ICU for hypertensive emergency, left-sided facial weakness. Allergies acetaminophen Allergy (Verified 03/06/19 03:47) Hives hydrocodone [Hydrocodone] Allergy (Verified 03/06/19 03:47) Hives Hydrocodone-Acetaminophen Allergy (Uncoded 03/06/19 03:47) Unknown Home Medications: Losartan Potassium 50 mg PO DAILY 03/01/19 cloNIDine HCL [Catapres] 0.1 mg PO BEDTIME 03/01/19 Aspirin [Aspirin EC 81 MG] 81 mg PO DAILY #30 tablet. 03/05/19 Atorvastatin Calcium [Lipitor] 40 mg PO BEDTIME #30 tab 03/05/19 Cefepime [Maxipime*] 2 gm IJ Q12HR #1 vial 03/05/19 Clopidogrel Bisulfate [Plavix*] 75 mg PO DAILY #30 tablet 03/05/19 Fenofibrate [Tricor*] 48 mg PO BEDTIME #30 tab 03/05/19 Metoprolol Tartrate [Lopressor*] 50 mg PO BID #60 tab 03/05/19 allopurinoL [Zyloprim*] 100 mg PO DAILY #30 tab 03/05/19 lisinopriL [Prinivil*] 2.5 mg PO BID #30 tab 03/05/19 Atorvastatin Calcium [Lipitor] 40 mg PO BEDTIME #30 tab 03/17/19 Clopidogrel Bisulfate [Plavix*] 75 mg PO DAILY #30 tablet 03/17/19 Docusate/Senna [Senokot-S*] 2 tab PO BEDTIME PRN #30 tab 03/17/19 Duloxetine [Cymbalta *] 20 mg PO DAILY #30 cap 03/17/19 Fenofibrate [Tricor*] 48 mg PO BEDTIME #30 tab 03/17/19 Hydralazine [Apresoline*] 20 mg PO Q4H PRN #120 tab 03/17/19 Metformin HCl [Glucophage*] 250 mg PO BIDWM #30 tab 03/17/19 Metoprolol Tartrate [Lopressor*] 75 mg PO BID #90 tab 03/17/19 Thiamine HCl [Vitamin B-1*] 100 mg PO DAILY #30 tablet 03/17/19 allopurinoL [Zyloprim*] 100 mg PO BID #60 tab 03/17/19 lisinopriL [Prinivil*] 10 mg PO BID #60 tab 03/17/19 - Past Medical/Surgical History Diabetic: No -: Uncontrolled HTN -: Gout -: Diabetes mellitus type [id number] -: Previous CVA -: CKD 3 -: Appendectomy -: Cholecystectomy Psychosocial/ Personal History: Lives at home with his son - Family History Father -: Hypertension, Diabetes Mother -: Heart disease, Diabetes Notes: pts mother is , pts father reports cod "complications from diabetes" Sister -: Diabetes - Social History Alcohol use: No CD- Drugs: No Caffeine use: No Place of Residence: Home Review of Systems 10-point ROS is otherwise unremarkable General: Other (Dizziness) Neurological: Other Physical Examination - Physical Exam General: Alert, In no apparent distress, Oriented x3 HEENT: Atraumatic, PERRLA, Mucous membr. moist/pink, EOMI Neck: Supple, 2+ carotid pulse no bruit, No LAD Respiratory: Clear to auscultation bilaterally, Normal air movement Cardiovascular: Regular rate/rhythm, Normal S1 S2 Gastrointestinal: Normal bowel sounds Musculoskeletal: No tenderness Integumentary: No rashes Neurological: Normal gait, Normal speech, Normal strength at 5/5 x4 extr, Normal tone, Sensation intact, Normal affect, Other (Mild left-sided facial droop NIH1) - Studies Laboratory Data (last 24 hrs) 07/29/23 07/29/23 07/29/23 09:13 09:13 09:13 WBC 5.60 Hgb 14.5 Hct 41.9 Plt Count 241 PT 11.1 INR 1.01 APTT 31.4 Sodium 138 Potassium 3.6 BUN 28 H Creatinine 2.19 H Glucose 235 H Magnesium 2.2 Total Bilirubin 1.1 H AST 17 ALT 30 Alkaline Phosphatase 182 H Assessment and Plan - Plan Assessment: Hypertensive emergency with underlying primary hypertension and noncompliance Left-sided facial droop Diabetes mellitus type 9pph-pmetprr-hwweypqls with noncompliance CKD 3 Gout Hyperlipidemia Plan: Hypertensive emergency with underlying primary hypertension and noncompliance Left-sided facial droop NIH score1 Will admit to ICU given marked hypertension Cardene with parameters to allow for permissive hypertension Neurology consultation in place Was not a TNK candidate given his known history of suspected aneurysm Neurochecks, monitored ICU overnight Diabetes mellitus type 9bmz-[id number]-jsyxfavcs with noncompliance ACHS Accu-Chek, sliding scale insulin A1c in the morning CKD 3 Mildly elevated over baseline Did receive IV contrast for angios Continue gentle IV fluids overnight, nephrology consultation placed Gout Hyperlipidemia Continue home medications once verified DVT PPX: Lovenox Code status: Full Discharge Plan: Home Plan to discharge in: 48 Hours - Advance Directives Does patient have a Living Will: No Does patient have a Durable POA for Healthcare: No - Code Status/Comfort Care Code Status Assessed: Yes (Full code) Critical Care: No Time Spent Managing Pts Care (In Minutes): 70
[2023-07-29] MEDS ORDERED: Nicardipine/NS 25 MG/250 ML KIT IV SCH (18:00)
[2023-07-29] MEDS: NA CHLORIDE 0.9% 1,000 ML IV SCH (18:29)
[2023-07-29] MEDS: ENOXAPARIN 40 MG/0.4 ML SQ SCH (19:37)
[2023-07-29] MEDS: ATORVASTATIN 40 MG TAB PO SCH (20:25)
[2023-07-29] MEDS: INSULIN REGULAR (HUMAN) 100 UNIT/ML SQ SCH (20:25)
[2023-07-29] MEDS: ONDANSETRON 4 MG/2 ML VIAL IV PRN (20:59)
[2023-07-30 06:03] LABS: Absolute Lymphocytes (CBC) 1.4 K/uL (0.7-4.9); Absolute Monocytes 0.5 K/uL (0.1-1.3); Absolute Neutrophil 6.4 K/uL (1.8-8.0); Basophils % 0.4 % (0-1.3); Eosinophils % 0.3 % (0-4.4); Hematocrit 41.7 % (39.6-49.0); Hemoglobin 14.5 g/dL (13.6-17.9); MCH 29.1 pg (27.0-35.0); MCHC 34.8 g/dL (32.0-36.0); MCV 83.6 fL (80-100); MPV 8.6 fL (7.6-11.3); Monocytes % 6.4 % (3.3-12.3); Neutrophils % 75.9 % (41.7-73.7); Nucleated Red Blood Cells % 0.2 % (0-0); Platelets 230 thou/uL (152-406); RBC Red Blood Cell Count 4.99 M/uL (4.33-5.43); Red Cell Distribution Width 14.1 % (12.1-15.2)
[2023-07-30 06:29] LABS: Albumin 3.7 g/dL (3.4-5.0); Anion Gap 13.6 mEq/L (5.0-15.0); Globulin 3.8 g/dL (2.3-3.5); Potassium 4.6 mEq/L (3.5-5.1); Protein, Total 7.5 g/dL (6.4-8.2); Thyroid Stimulating Hormone 1.91 uIU/mL (0.358-3.740)
[2023-07-30] MEDS: ASPIRIN EC 81 MG TAB PO SCH (07:42)
[2023-07-30] MEDS: CLOPIDOGREL 75 MG TABLET PO SCH (07:42)
--- NOTE | 2023-07-30 09:53 | P.CNS ---
Date of Consult: 07/30/23 Reason for Consult: TONY/ CKD Requesting Physician: Garry Berumen Chief Complaint: Hypertensive emergency, left-sided facial weakness History of Present Illness: 48-year-old male with history of uncontrolled hypertension, previous CVA, CKD 3, hyperlipidemia, gout, iqj-ianwfca-yoymiipfl diabetes with noncompliance presents emergency department with chief complaint of dizziness. He reports he woke up around 6 in the morning and around 7 in the morning he noticed that he was feeling dizzy, his blood pressure was markedly elevated as it usually is. He has been taking his blood pressure medications every other day as he cannot aff ord to take them daily and he reports his blood pressure typically runs over 200 systolic. He was evaluated in the emergency department initially treated with oral medications had an initial CT of his head without contrast performed at around 8:30 AM which was negative for acute findings, he was given blood pressure medications including metoprolol, lisinopril, amlodipine, IV hydralazine, p.o. clonidine and had marked improvement in his blood pressure. Patient was feeling better at this time and discharge planning was in place, before discharge patient developed left-sided facial droop and code stroke was called. Patient was brought back to CT for another noncontrast exam which was negative for acute findings also had CTA of the head and neck which were negative for large vessel occlusion. ED provider discussed case with neurology and previous imaging was reviewed including an MRI in 2019 which showed a possible aneurysm. For that reason patient was not a good candidate for tPA, his symptoms did also improve in the ED although he still does have some facial droop present that left side. 08:39 This 48 yrs old Male presents to ER via Ambulatory with complaints of sb4 Shortness Of Breath, Dizziness. 08:45 patient states he started experiencing dizziness and shortness of breath shortly after sb4 waking this morning. denies any chest pain, headache, blurry vision, nausea. states he has not been taking his blood pressure as prescribed, has been stretching it out to make it last longer. Allergies acetaminophen Allergy (Verified 03/06/19 03:47) Hives hydrocodone [Hydrocodone] Allergy (Verified 03/06/19 03:47) Hives Hydrocodone-Acetaminophen Allergy (Uncoded 03/06/19 03:47) Unknown Home medications list reviewed: Yes Home Medications: Losartan Potassium 50 mg PO DAILY 03/01/19 allopurinoL [Zyloprim*] 100 mg PO DAILY #30 tab 03/05/19 Metoprolol Tartrate [Lopressor*] 75 mg PO BID #90 tab 03/17/19 lisinopriL [Prinivil*] 10 mg PO BID #60 tab 03/17/19 - Past Medical/Surgical History Diabetic: No -: Uncontrolled HTN -: Gout -: Diabetes mellitus type [id number] -: Previous CVA -: CKD IIIb (Dr. Lamb/ [facility]) -: Appendectomy -: Cholecystectomy Psychosocial/ Personal History: Lives at home with his son - Family History Father Medical History: Hypertension, Diabetes Mother Medical History: Heart disease, Diabetes Notes: pts mother is , pts father reports cod "complications from diabetes" Sister Medical History: Diabetes - Social History Smoking Status: Current some day smoker Alcohol use: No CD- Drugs: No Caffeine use: No Place of Residence: Home Review of Systems 10-point ROS is otherwise unremarkable General: Weakness Neurological: Weakness Physical Examination Temp Pulse Resp BP Pulse Ox 96.9 F 54 12 164/89 H 99 07/30/23 07:00 07/30/23 09:00 07/30/23 09:00 07/30/23 09:00 07/30/23 09:00 General: In no apparent distress, Oriented x3, Cooperative HEENT: Atraumatic Neck: Supple Respiratory: Clear to auscultation bilaterally Cardiovascular: No edema Gastrointestinal: Soft and benign, Non-distended Musculoskeletal: No clubbing, No contractures Integumentary: No rashes, No cyanosis Neurological: Normal speech Laboratory Data (last 24 hrs) 07/29/23 09:13 Sodium 138 Potassium 3.6 BUN 28 H Creatinine 2.19 H Glucose 235 H Magnesium 2.2 Total Bilirubin 1.1 H AST 17 ALT 30 Alkaline Phosphatase 182 H Imagings Data: EXAM DESCRIPTION: RAD - Chest Single View - 07/29/2023 8:59 am CLINICAL HISTORY: CHEST PAIN Chest pain. COMPARISON: Chest Single View dated 11/07/2022; Chest Single View dated 03/03/2019; Chest Single View dated 03/01/2019; Chest Single View dated 04/30/2017 FINDINGS: Portable technique limits examination quality. The lungs are grossly clear. The heart is normal in size. No displaced fractures. IMPRESSION: No acute intrathoracic process suspected. Echocardiogram 2020 LEFT VENTRICULAR WALL MOTION: NORMAL. DOPPLER/COLOR FLOW: NORMAL. COMMENTS: NORMAL 2D ECHO WITH DOPPLER. Conclusions/Impression: CKD IIIb -No NSAIDs Acute metabolic acidosis -Change IVF to LR Hypertensive emergency HTN with CKD -Cardene gtt prn -Restart home antihypertensives as indicated DM II A1C 6.8 -RISS -Nutrition education prn Gout without flare -Restart allopurinol prn Hospitalist and ER notes reviewed Case reviewed with hospitalist team Thank you kindly for the consultation
--- NOTE | 2023-07-30 10:24 | P.PN ---
Date of Service: 07/30/23 Subjective: Denies complaints Started with vomiting overnight Denies nausea prior to episodes ROS: 10 point ROS as noted above, otherwise negative Physical exam GEN: Alert, oriented, NAD HEENT: Normal conjunctiva, sclera anicteric CV: Regular rate and rhythm, no edema Pulm: Nonlabored respirations on room air ABD: Soft, nontender, nondistended MSK: No joint tenderness Integumentary: No rashes Neuro: Normal speech, normal affect, NIH-2, left facial weakness Vitals reviewed Assessment: Hypertensive emergency with underlying primary hypertension and noncompliance Left-sided facial droop Diabetes mellitus type [id number]-pblmlzklp with noncompliance CKD 3 Gout Hyperlipidemia Plan: Hypertensive emergency with underlying primary hypertension and noncompliance Left-sided facial droop NIH score2, worsening left facial droop overnight, now with some upper facial involvement Continue to monitor in ICU given developing symptoms, need for close monitoring of BP Cardene with parameters to allow for permissive hypertension-has not needed thus far Neurology consultation in place Was not a TNK candidate given his known history of suspected aneurysm Neurochecks, NIH q shift Asa, plavix, statin, risk factor modification Having some vomiting today, seems to be associated with position change Continue to monitor Diabetes mellitus type [id number]-pzwyyus-rgcfoojbu with noncompliance ACHS Accu-Chek, sliding scale insulin A1c 6.8-will need meds at DC CKD 3 Continue gentle IV fluids nephrology consultation placed Had CT angio head/neck 07/28 monitor for worsening Gout Hyperlipidemia Continue statin DVT PPX: Lovenox Code status: Full Discharge Plan: Home Plan to discharge in: 48 Hours Time Spent Managing Pts Care (In Minutes): 35
[2023-07-30] MEDS: Ringers Lactate 1,000 ML IV SCH (11:46)
--- NOTE | 2023-07-30 12:47 | ECHO ---
HEIGHT: 5 ft 8 in WEIGHT: 239 lb 15.923 oz DATE OF STUDY: 07/30/[address]: Elian Mayer NP 2-DIMENSIONAL: YES M.MODE: YES DOPPLER: YES COLOR FLOW: YES TDS: PORTABLE: YES DEFINITY: BUBBLE STUDY: DIAGNOSIS: STROKE CARDIAC HISTORY: CATHERIZATION: NO SURGERY: NO PROSTHETIC VALVE: NO PACEMAKER: NO MEASUREMENTS (cm) DIASTOLIC (NORMALS) SYSTOLIC (NORMALS) IVSd 1.4 (0.6-1.2) LA Diam 3.1 (1.9-4.0) LVEF 60-65% LVIDd 4.0 (3.5-5.7) LVIDs 2.6 (2.0-3.5) %FS 36% LVPWd 1.0 (0.6-1.2) Ao Diam 2.6 (2.0-3.7) 2 DIMENSIONAL ASSESSMENT: RIGHT ATRIUM: NORMAL LEFT ATRIUM: NORMAL RIGHT VENTRICLE: NORMAL LEFT VENTRICLE: NORMAL TRICUSPID VALVE: MILD TRICUSPID REGURGITATION MITRAL VALVE: NORMAL PULMONIC VALVE: NORMAL AORTIC VALVE: NORMAL PERICARDIAL EFFUSION: NONE AORTIC ROOT: NORMAL LEFT VENTRICULAR WALL MOTION: NORMAL DOPPLER/COLOR FLOW: NORMAL COMMENTS: 1. NORMAL LEFT VENTRICULAR SYSTOLIC FUNCTION, EJECTION FRACTION 60-65%, NORMAL WALL MOTION 2. MILD TRICUSPID REGURGITATION, MILD PULMONARY HYPERTENSION (RIGHT VENTRICULAR SYSTOLIC PRESSURE 30-35 mmHg) 3. MILD LEFT VENTRICULAR HYPERTROPHY TECHNOLOGIST: JENNY CORNELL
[2023-07-31 06:13] LABS: Absolute Eosinophils 0.1 K/uL (0-0.5); Absolute Lymphocytes (CBC) 1.9 K/uL (0.7-4.9); Absolute Monocytes 0.6 K/uL (0.1-1.3); Absolute Neutrophil 4.8 K/uL (1.8-8.0); Basophils % 0.6 % (0-1.3); Eosinophils % 0.9 % (0-4.4); Hematocrit 38.1 % (39.6-49.0); Hemoglobin 13.1 g/dL (13.6-17.9); Lymphocytes % 25.7 % (15.3-44.8); MCH 28.6 pg (27.0-35.0); MCHC 34.5 g/dL (32.0-36.0); MPV 9.2 fL (7.6-11.3); Monocytes % 8.4 % (3.3-12.3); Neutrophils % 64.4 % (41.7-73.7); Platelets 224 thou/uL (152-406); RBC Red Blood Cell Count 4.59 M/uL (4.33-5.43); Red Cell Distribution Width 13.8 % (12.1-15.2)
[2023-07-31 06:27] LABS: Albumin 3.2 g/dL (3.4-5.0); Albumin/Globulin Ratio 0.9 (1.1-1.8); Anion Gap 7.8 mEq/L (5.0-15.0); Bilirubin Total 0.6 mg/dL (0.2-1.0); Globulin 3.6 g/dL (2.3-3.5); Potassium 3.8 mEq/L (3.5-5.1); Protein, Total 6.8 g/dL (6.4-8.2)
[2023-07-31] MEDS: allopurinoL 100 MG TAB PO SCH (08:20)
[2023-07-31] MEDS: AMLODIPINE 5 MG TAB PO ONE (08:20)
--- NOTE | 2023-07-31 09:54 | P.PN ---
Date of Service: 07/31/23 Subjective: Denies complaints Nausea/vomiting resolved feeling better ROS: 10 point ROS as noted above, otherwise negative Physical exam GEN: Alert, oriented, NAD HEENT: Normal conjunctiva, sclera anicteric CV: Regular rate and rhythm, no edema Pulm: Nonlabored respirations on room air ABD: Soft, nontender, nondistended MSK: No joint tenderness Integumentary: No rashes Neuro: Normal speech, normal affect, NIH-2, left facial weakness Vitals reviewed Assessment: Hypertensive emergency with underlying primary hypertension and noncompliance Left-sided facial droop Diabetes mellitus type [id number]-hvsabctgt with noncompliance CKD 3 Gout Hyperlipidemia Plan: Hypertensive emergency with underlying primary hypertension and noncompliance Left-sided facial droop NIH score2, Some slight improvement in facial weakness today Will downgrade form ICU Neurology consultation in place Was not a TNK candidate given his known history of suspected aneurysm Neurochecks, NIH q shift Asa, plavix, statin, risk factor modification Vomiting resolved Started amlodipine today Consider restarting lisinopril this evening or tomorrow at 20mg dose Diabetes mellitus type 3mmz-wansdfv-secgdmejr with noncompliance ACHS Accu-Chek, sliding scale insulin A1c 6.8-will need follow up at DC CKD 3 Continue gentle IV fluids nephrology following Had CT angio head/neck 07/28 monitor for worsening Gout Hyperlipidemia Continue statin DVT PPX: Lovenox Code status: Full Discharge Plan: Home Plan to discharge in: 48 Hours Time Spent Managing Pts Care (In Minutes): 35
[2023-07-31] MEDS: lisinopriL 20 MG TAB PO ONE (11:21)
[2023-07-31] MEDS: HYDRALAZINE HCL 20 MG/ML VIAL IV PRN (17:34)
[2023-07-31] MEDS ORDERED: METOPROLOL TAR 50 MG TAB PO SCH (21:00)
[2023-07-31] MEDS: lisinopriL 20 MG TAB PO SCH (21:23)
--- NOTE | 2023-07-31 22:06 | P.PN ---
Date of Service: 07/31/23 Vital Signs Temp Pulse Resp BP Pulse Ox 97.8 F 69 17 213/126 H 100 07/31/23 19:00 07/31/23 19:00 07/31/23 19:00 07/31/23 19:00 07/31/23 19:00 Medications Allopurinol (Allopurinol 100 Mg Tab) 100 mg PO DAILY [facility] Last Admin: 07/31/23 08:20 Dose: 100 mg Amlodipine Besylate (Amlodipine 5 Mg Tab) 5 mg PO DAILY [facility] Aspirin (Aspirin Ec 81 Mg Tab) 162 mg PO DAILY [facility] Last Admin: 07/31/23 08:19 Dose: 162 mg Atorvastatin Calcium (Atorvastatin 40 Mg Tab) 40 mg PO BEDTIME [facility] Last Admin: 07/31/23 21:23 Dose: 40 mg Clopidogrel Bisulfate (Clopidogrel 75 Mg Tablet) 75 mg PO DAILY [facility] Last Admin: 07/31/23 08:19 Dose: 75 mg Enoxaparin Sodium (Enoxaparin 40 Mg/0.4 Ml) 40 mg SQ DAILY [facility] Last Admin: 07/31/23 08:26 Dose: 40 mg Hydralazine HCl (Hydralazine Hcl 20 Mg/Ml Vial) 5 mg IV Q6HP PRN PRN Reason: Give for SBP>190 or DBP>105 Last Admin: 07/31/23 17:34 Dose: 5 mg Lactated Ringer's (Lactated Ringers) 1,000 mls @ 80 mls/hr IV .[id number] [facility] Last Admin: 07/31/23 11:30 Dose: 1,000 mls Insulin Human Regular (Insulin Regular (Human) 100 Unit/Ml) 0 unit SQ ACHS [facility]; Protocol Last Admin: 07/31/23 16:11 Dose: Not Given Lisinopril (Lisinopril 20 Mg Tab) 20 mg PO BID [facility] Last Admin: 07/31/23 21:23 Dose: 20 mg Metoprolol Tartrate (Metoprolol Tar 50 Mg Tab) 50 mg PO BID [facility] Ondansetron HCl (Ondansetron 4 Mg/2 Ml Vial) 4 mg IV Q6HP PRN PRN Reason: NAUSEA / VOMITING Last Admin: 07/30/23 09:56 Dose: 4 mg Assessment/ Plan: Nephrology No dyspnea No chest pain Feeling better No acute events overnight Vitals, medications, blood work and imaging reviewed in the chart General: In no apparent distress, Oriented x3, Cooperative HEENT: Atraumatic Neck: Supple Respiratory: Clear to auscultation bilaterally Cardiovascular: No edema Gastrointestinal: Soft and benign, Non-distended Musculoskeletal: No clubbing, No contractures Integumentary: No rashes, No cyanosis Neurological: Normal speech Laboratory Data (last 24 hrs) 07/29/23 09:13 Sodium 138 Potassium 3.6 BUN 28 H Creatinine 2.19 H Glucose 235 H Magnesium 2.2 Total Bilirubin 1.1 H AST 17 ALT 30 Alkaline Phosphatase 182 H Imagings Data: EXAM DESCRIPTION: RAD - Chest Single View - 07/29/2023 8:59 am CLINICAL HISTORY: CHEST PAIN Chest pain. COMPARISON: Chest Single View dated 11/07/2022; Chest Single View dated 03/03/2019; Chest Single View dated 03/01/2019; Chest Single View dated 04/30/2017 FINDINGS: Portable technique limits examination quality. The lungs are grossly clear. The heart is normal in size. No displaced fr actures. IMPRESSION: No acute intrathoracic process suspected. Echocardiogram 2019 LEFT VENTRICULAR WALL MOTION: NORMAL. DOPPLER/COLOR FLOW: NORMAL. COMMENTS: NORMAL 2D ECHO WITH DOPPLER. Conclusions/Impression: CKD IIIb -No NSAIDs Acute metabolic acidosis -Continue IVF Hypertensive emergency HTN with CKD -Cardene gtt prn -Restart Amlodipine and Lisinopril DM II A1C 6.8 -RISS -Nutrition education prn Gout without flare -Continue allopurinol Hospitalist note reviewed Case reviewed with hospitalist team
[2023-08-01 05:09] LABS: Absolute Basophils 0.1 K/uL (0-0.5); Absolute Eosinophils 0.1 K/uL (0-0.5); Absolute Lymphocytes (CBC) 1.9 K/uL (0.7-4.9); Absolute Monocytes 0.6 K/uL (0.1-1.3); Absolute Neutrophil 4.2 K/uL (1.8-8.0); Basophils % 0.7 % (0-1.3); Eosinophils % 1.5 % (0-4.4); Hematocrit 40.7 % (39.6-49.0); Hemoglobin 14.4 g/dL (13.6-17.9); MCH 29.1 pg (27.0-35.0); MCHC 35.5 g/dL (32.0-36.0); MPV 8.9 fL (7.6-11.3); Monocytes % 9.2 % (3.3-12.3); Neutrophils % 61.6 % (41.7-73.7); Platelets 238 thou/uL (152-406); RBC Red Blood Cell Count 4.96 M/uL (4.33-5.43); Red Cell Distribution Width 14.2 % (12.1-15.2)
[2023-08-01 05:30] LABS: Albumin 3.8 g/dL (3.4-5.0); Albumin/Globulin Ratio 1.1 (1.1-1.8); Anion Gap 7.6 mEq/L (5.0-15.0); Bilirubin Total 1.4 mg/dL (0.2-1.0); Globulin 3.6 g/dL (2.3-3.5); Potassium 3.6 mEq/L (3.5-5.1); Protein, Total 7.4 g/dL (6.4-8.2)
[2023-08-01 06:01] VITALS: BMI 36.6
[2023-08-01] MEDS: AMLODIPINE 5 MG TAB ONE ×2 (08:49→11:49)
[2023-08-01] MEDS: METOPROLOL TAR 50 MG TAB PO SCH (08:52)
[2023-08-01] MEDS: AMLODIPINE 5 MG TAB PO SCH (08:52)
[2023-08-01] MEDS ORDERED: AMLODIPINE 5 MG TAB PO SCH ×2 (09:00)
--- NOTE | 2023-08-01 11:39 | P.PN ---
Date of Service: 08/01/23 Vital Signs Temp Pulse Resp BP Pulse Ox 988.4 F H 64 16 196/111 H 100 08/01/23 11:00 08/01/23 11:00 08/01/23 11:00 08/01/23 11:00 08/01/23 11:00 Medications Allopurinol (Allopurinol 100 Mg Tab) 100 mg PO DAILY [facility] Last Admin: 08/01/23 08:52 Dose: 100 mg Amlodipine Besylate (Amlodipine 5 Mg Tab) 10 mg PO DAILY [facility] Amlodipine Besylate (Amlodipine 5 Mg Tab) 5 mg PO 1X ONE Stop: 08/01/23 11:34 Aspirin (Aspirin Ec 81 Mg Tab) 162 mg PO DAILY [facility] Last Admin: 08/01/23 08:52 Dose: 162 mg Atorvastatin Calcium (Atorvastatin 40 Mg Tab) 40 mg PO BEDTIME [facility] Last Admin: 07/31/23 21:23 Dose: 40 mg Carvedilol (Carvedilol 25 Mg Tab) 25 mg PO BID 6AM 6PM [facility] Clopidogrel Bisulfate (Clopidogrel 75 Mg Tablet) 75 mg PO DAILY [facility] Last Admin: 08/01/23 08:52 Dose: 75 mg Enoxaparin Sodium (Enoxaparin 40 Mg/0.4 Ml) 40 mg SQ DAILY [facility] Last Admin: 08/01/23 08:51 Dose: 40 mg Hydralazine HCl (Hydralazine Hcl 20 Mg/Ml Vial) 5 mg IV Q6HP PRN PRN Reason: Give for SBP>190 or DBP>105 Last Admin: 07/31/23 17:34 Dose: 5 mg Lactated Ringer's (Lactated Ringers) 1,000 mls @ 80 mls/hr IV .[id number] [facility] Last Admin: 08/01/23 00:47 Dose: 1,000 mls Insulin Human Regular (Insulin Regular (Human) 100 Unit/Ml) 0 unit SQ ACHS [facility]; Protocol Last Admin: 08/01/23 07:30 Dose: Not Given Lisinopril (Lisinopril 20 Mg Tab) 20 mg PO BID [facility] Last Admin: 08/01/23 08:53 Dose: 20 mg Ondansetron HCl (Ondansetron 4 Mg/2 Ml Vial) 4 mg IV Q6HP PRN PRN Reason: NAUSEA / VOMITING Last Admin: 07/30/23 09:56 Dose: 4 mg Assessment/ Plan: Nephrology No dyspnea No chest pain Feeling better No acute events overnight Vitals, medications, blood work and imaging reviewed in the chart General: In no apparent distress, Oriented x3, Cooperative HEENT: Atraumatic Neck: Supple Respiratory: Clear to auscultation bilaterally Cardiovascular: No edema Gastrointestinal: Soft and benign, Non-distended Musculoskeletal: No clubbing, No contractures Integumentary: No rashes, No cyanosis Neurological: Normal speech Laboratory Data (last 24 hrs) 07/29/23 09:13 Sodium 138 Potassium 3.6 BUN 28 H Creatinine 2.19 H Glucose 235 H Magnesium 2.2 Total Bilirubin 1.1 H AST 17 ALT 30 Alkaline Phosphatase 182 H Imagings Data: EXAM DESCRIPTION: RAD - Chest Single View - 07/29/2023 8:59 am CLINICAL HISTORY: CHEST PAIN Chest pain. COMPARISON: Chest Single View dated 11/07/2022; Chest Single View dated 03/03/2019; Chest Single View dated 03/01/2019; Chest Single View dated 04/30/2017 FINDINGS: Portable technique limits examination quality. The lungs are grossly clear. The heart is normal in size. No displaced fractures. IMPRESSION: No acute intrathoracic process suspected. Echocardiogram 2019 LEFT VENTRICULAR WALL MOTION: NORMAL. DOPPLER/COLOR FLOW: NORMAL. COMMENTS: NORMAL 2D ECHO WITH DOPPLER. Conclusions/Impression: CKD IIIb -No NSAIDs Acute metabolic acidosis -Discontinue IVF Hypertensive emergency HTN with CKD -Continue Lisinopril 20 bid -Increase Amlodipine 10 daily -Change Metoprolol to Coreg -Check Doppler Renal US DM II A1C 6.8 -RISS -Nutrition education prn Gout without flare -Continue allopurinol Hospitalist note reviewed Case reviewed with hospitalist team
[2023-08-01] MEDS: POTASSIUM CL SA 10 MEQ TAB PO ONE ×2 (11:49→11:53)
[2023-08-01] MEDS: AMLODIPINE 5 MG TAB PO ONE (11:53)
--- NOTE | 2023-08-01 12:57 | P.PN ---
Date of Service: 08/01/23 Subjective: Denies complaints Facial weakness improved ROS: 10 point ROS as noted above, otherwise negative Physical exam GEN: Alert, oriented, NAD HEENT: Normal conjunctiva, sclera anicteric CV: Regular rate and rhythm, no edema Pulm: Nonlabored respirations on room air ABD: Soft, nontender, nondistended MSK: No joint tenderness Integumentary: No rashes Neuro: Normal speech, normal affect, NIH-0,Left facial weakness improved Vitals reviewed Assessment: Hypertensive emergency with underlying primary hypertension and noncompliance Left-sided facial droop Diabetes mellitus type [id number] with noncompliance CKD 3 Gout Hyperlipidemia Plan: Hypertensive emergency with underlying primary hypertension and noncompliance Left-sided facial droop NIH score0, Left facial weakness improved Was not a TNK candidate given his known history of suspected aneurysm Neurochecks, NIH q shift Asa, plavix, statin, risk factor modification Started lisinopril 20mg bid, amlodipine 5mg daily 07/30 amlodipine increased to 10mg daily and carvedilol 25mg bid added 07/31 Working on better BP control US to R/O PURNIMA in AM Diabetes mellitus type [id number] with noncompliance ACHS Accu-Chek, sliding scale insulin A1c 6.8-will need follow up at DC CKD 3 IVF DC'd 07/31 monitor renal function daily Had CT angio head/neck 07/28 monitor for worsening Gout Hyperlipidemia Continue statin DVT PPX: Lovenox Code status: Full Discharge Plan: Home Plan to discharge in: 24 Hours Time Spent Managing Pts Care (In Minutes): 35
[2023-08-01] MEDS ORDERED: HYDRALAZINE HCL 20 MG/ML VIAL IV PRN (16:48)
[2023-08-01] MEDS: carvediloL 25 MG TAB PO SCH (17:10)
[2023-08-01 20:39] VITALS: O2SAT 100
[2023-08-02 07:31] LABS: Anion Gap 9.1 mEq/L (5.0-15.0); Potassium 4.1 mEq/L (3.5-5.1)
--- NOTE | 2023-08-02 07:43 | RAD REPORT ---
EXAM DESCRIPTION: US - Abdomen Pelvis Scan US - 08/02/2023 5:48 am CLINICAL HISTORY: Hypertension COMPARISON: None FINDINGS: The right kidney 10 centimeters with a normal echotexture. Left kidney 10 centimeters with a normal echotexture Bladder grossly normal The velocity right renal artery 124 centimeters/second. The velocity left renal artery 147 centimeters/second. Aorta velocity 88 centimeters/seconds Renal artery/aorta ratios are within normal limits IMPRESSION: No sonographic evidence of a significant renal arterial stenosis
[2023-08-02] MEDS: HEPARIN 5000 UNIT/ML 1 ML VIAL SQ SCH (08:51)
[2023-08-02] MEDS: DOXAZOSIN 2 MG TAB PO SCH (08:53)
[2023-08-02] MEDS: AMLODIPINE 10 MG TAB PO SCH (08:53)
[2023-08-02 09:15] VITALS: BP 134/95
[2023-08-02 10:49] VITALS: TEMP 97.6
--- NOTE | 2023-08-02 11:22 | P.PN ---
(S) Pt denies any acute complaints, no CP, dyspnea, orthostasis (O) vitals reviewed in the EMR General: In no apparent distress, Oriented x3, Cooperative HEENT: Atraumatic Neck: Supple Respiratory: Clear to auscultation bilaterally Cardiovascular: No edema, non tachy Gastrointestinal: Soft and benign, Non-distended Musculoskeletal: No clubbing, No contractures Integumentary: No rashes Neurological: Normal speech, no tremors Conclusions/Impression: Abnormal results of kidney studies. Suspected CKD IIIb -Mild upward rise in Cr levels, will need close monitoring as OP and continued risk factor modification Hypertensive emergency, resolved HTN with CKD -Continue current meds, ok to cont max dose ACEi while K levels ok -Checked Doppler Renal US which did not show elevated PSV
--- NOTE | 2023-08-02 14:15 | P.DS ---
Admission Date: 07/29/23 Discharge Date: 08/02/23 Disposition: ROUTINE DISCHARGE Discharge Condition: GOOD Reason for Admission: Hypertensive emergency, left-sided facial weakness Consultations: NephrologyDr. Lamb Brief History of Present Illness: 48-year-old male with history of uncontrolled hypertension, previous CVA, CKD 3, hyperlipidemia, gout, uka-igawrqk-wrfjbesie diabetes with noncompliance presents emergency department with chief complaint of dizziness. He reports he woke up around 6 in the morning and around 7 in the morning he noticed that he was feeling dizzy, his blood pressure was markedly elevated as it usually is. He has been taking his blood pressure medications every other day as he cannot afford to take them daily and he reports his blood pressure typically runs over 200 systolic. He was evaluated in the emergency department initially treated with oral medications had an initial CT of his head without contrast performed at around 8:30 AM which was negative for acute findings, he was given blood pressure medications including metoprolol, lisinopril, amlodipine, IV hydralazine, p.o. clonidine and had marked improvement in his blood pressure. Patient was feeling better at this time and discharge planning was in place, before discharge patient developed left-sided facial droop and code stroke was called. Patient was brought back to CT for another noncontrast exam which was negative for acute findings also had CTA of the head and neck which were negative for large vessel occlusion. ED provider discussed case with neurology and previous imaging was reviewed including an MRI in 2019 which showed a possible aneurysm. For that reason patient was not a good candidate for tPA, his symptoms did also improve in the ED although he still does have some facial droop present that left side. Will admit to the ICU for hypertensive emergency, left-sided facial weakness. Hospital Course: Assessment: Hypertensive emergency with underlying primary hypertension and noncompliance Left-sided facial droop Diabetes mellitus type [id number] with noncompliance CKD 3 Gout Hyperlipidemia Vital Signs/Physical Exam: Temp Pulse Resp BP Pulse Ox 97.6 F 70 17 134/95 H 97 08/02/23 08:00 08/02/23 08:53 08/02/23 08:00 08/02/23 08:53 08/02/23 08:00 General: Alert, In no apparent distress, Oriented x3 HEENT: Atraumatic, PERRLA Neck: Supple, JVD not distended Respiratory: Clear to auscultation bilaterally, Normal air movement Cardiovascular: Regular rate/rhythm, Normal S1 S2 Gastrointestinal: Normal bowel sounds, No tenderness Musculoskeletal: No tenderness Integumentary: No rashes Neurological: Normal speech, Normal tone, Normal affect, Other (Very mild left lower facial droop noted) Lymphatics: No axilla or inguinal lymphadenopathy Laboratory Data at Discharge: WBC 6.90 thou/uL (4.3-10.9) 08/01/23 04:54 Hgb 14.4 g/dL (13.6-17.9) D 08/01/23 04:54 Hct 40.7 % (39.6-49.0) 08/01/23 04:54 Plt Count 238 thou/uL (152-406) 08/01/23 04:54 PT 11.1 SECONDS (9.5-12.5) 07/29/23 09:13 INR 1.01 07/29/23 09:13 APTT 31.4 SECONDS (24.3-36.9) 07/29/23 09:13 Sodium 137 mEq/L (136-145) 08/02/23 06:35 Potassium 4.1 mEq/L (3.5-5.1) D 08/02/23 06:35 BUN 32 mg/dL (7-18) H 08/02/23 06:35 Creatinine 2.37 mg/dL (0.70-1.30) H 08/02/23 06:35 Glucose 189 mg/dL (74-106) H 08/02/23 06:35 Magnesium 2.2 mg/dL (1.6-2.4) 07/29/23 09:13 Total Bilirubin 1.4 mg/dL (0.2-1.0) H 08/01/23 04:54 AST 23 U/L (15-37) 08/01/23 04:54 ALT 30 U/L (16-61) 08/01/23 04:54 Alkaline Phosphatase 148 U/L (45-117) H 08/01/23 04:54 Triglycerides 330 mg/dL (<150) H 07/30/23 05:35 Cholesterol 190 mg/dL (<200) 07/30/23 05:35 HDL Cholesterol 27 mg/dL (40-60) L 07/30/23 05:35 Cholesterol/HDL Ratio 7.04 07/30/23 05:35 Home Medications: Amlodipine [Norvasc*] 10 mg PO DAILY #30 tab 08/02/23 Aspirin [Aspirin EC] 81 mg PO DAILY #30 tab 08/02/23 Atorvastatin Calcium [Lipitor] 40 mg PO BEDTIME #30 tab 08/02/23 Clopidogrel Bisulfate [Plavix*] 75 mg PO DAILY #30 tab 08/02/23 Doxazosin [Cardura*] 4 mg PO BID #120 tab 08/02/23 allopurinoL [Zyloprim*] 100 mg PO DAILY #30 tab 08/02/23 carvediloL [Coreg*] 25 mg PO BID 6AM 6PM #60 tab 08/02/23 lisinopriL [Prinivil*] 20 mg PO BID #60 tab 08/02/23 New Medications: Aspirin [Aspirin EC] 81 mg PO DAILY #30 tab Doxazosin [Cardura*] 4 mg PO BID #120 tab carvediloL [Coreg*] 25 mg PO BID 6AM 6PM #60 tab Atorvastatin Calcium [Lipitor] 40 mg PO BEDTIME #30 tab Amlodipine [Norvasc*] 10 mg PO DAILY #30 tab Clopidogrel Bisulfate [Plavix*] 75 mg PO DAILY #30 tab lisinopriL [Prinivil*] 20 mg PO BID #60 tab allopurinoL [Zyloprim*] 100 mg PO DAILY #30 tab Physician Discharge Instructions: Patient was admitted to the hospital for hypertensive emergency, left-sided facial droop. Upon arrival to the hospital patient's blood pressure was 242/128, he was admitted to the ICU given his significant hypertension. He was not a candidate for TNK as previous MRI reviewed possible small aneurysm. We allow for permissive hypertension for the first 48 hours then reinitiated oral antihypertensive agents which have not been titrated, blood pressure much improved at this time. CT head without contrast was negative for acute findings CT angio head and neck negative for large vessel occlusions or significant stenosis and MRI of the brain did not show findings of CVA. On the third day facial weakness on the left significant improved and is barely perceivable at this time. Given his marked hypertension and abdominal ultrasound was performed to rule out renal artery stenosis which was negative. Patient with CKD 3, creatinine around 2 throughout hospitalization, 2.37 at discharge. Seen by nephrology, recommend follow-up in 1 to 2 weeks with conditioner tender for repeat BMP, further evaluation. Of note A1c was mildly elevated at 6.8 suspect underlying type 2 diabetes, recommend follow-up with PCP/nephrology for further management/medication adjustment as many new medications have recently been added during hospitalization for blood pressure management. At discharge prescriptions for the following medications were sent to [facility] in [place] Aspirin 81 mg daily Doxazosin 4 mg by mouth twice daily Carvedilol 25 mg by mouth twice daily Amlodipine 10 mg by mouth daily Lisinopril 20 mg by mouth twice daily Clopidogrel 75 mg by mouth daily Atorvastatin 40 mg by mouth at bedtime Allopurinol 100 mg by mouth daily Please follow-up with your primary care doctor 1 to 2 weeks Please also follow-up with Dr. Lamb/Dr. Tillman in 1-2 weeks to monitor kidney function Diet: Renal Activity: Ad fredi Followup: Chris Tillman [ACTIVE - CAN ADMIT] - 1-2 Weeks Ervin Olivas MD [ASSOCIATE-ACTIVE - CAN ADMIT] - 1-2 Weeks Mervin Randall MD [Primary Care Provider] - 1-2 Weeks Time spent managing pt's care (in minutes): 35
== END 2023-08-02 13:00 | disposition home or self-care (01) | DRG 305 ==
LOC: ER 08:22 → 3RD-ICU 17:00 → 4TH 08-01 20:22
PROVIDERS: ADMIT Internal Medicine Sleep Medicine; ATTEND Hospitalist
DX: I16.1 Hypertensive emergency (principal); E87.21 Acute metabolic acidosis; I12.9 Hypertensive chronic kidney disease with stage 1 through stage 4 chronic kidney disease, or unspecified chronic kidney disease; N18.31 Chronic kidney disease, stage 3a; E11.22 Type 2 diabetes mellitus with diabetic chronic kidney disease; M10.9 Gout, unspecified; E78.5 Hyperlipidemia, unspecified; F17.200 Nicotine dependence, unspecified, uncomplicated; R29.702 NIHSS score 2; R29.810 Facial weakness; Z88.5 Allergy status to narcotic agent; Z79.82 Long term (current) use of aspirin; Z79.02 Long term (current) use of antithrombotics/antiplatelets; Z79.84 Long term (current) use of oral hypoglycemic drugs; Z90.49 Acquired absence of other specified parts of digestive tract; Z79.899 Other long term (current) drug therapy; Z91.199 Patient's noncompliance with other medical treatment and regimen due to unspecified reason
CPT/HCPCS: 36415; 70450; 70496; 70498; 70551; 71045; 80048; 80053; 80061; 80076; 81001; 82947; 83036; 83735; 83880; 84443; 84484; 85025; 85610; 85730; 92523; 92610; 93005; 93306; 93975; 96361; 96365; 96375; 97116; 97163; 97530; 99285; J0360; J1644; J1650; J2405; J7030; J7120; Q9967